=== PATIENT | female | born 1945 | race Caucasian/White ===

== ENCOUNTER 2017-06-19 14:45 | Emergency (ER) | payer OTHER ==
[~2017-06-19] VITALS: Ht 172.7 cm; Wt 82.0 kg
[~2017-06-19 14:45] MED LIST: ALPOPS1 OPB; LISI-461 PO; MAGN400T5 PO; METO25TA56 PO; MULT-506 PO; POTA-327 PO
[2017-06-19 14:47] VITALS: TEMP 37; Ht 172.7 cm; Wt 82.0 kg
[2017-06-19] MEDS ORDERED: SODIUM CHLORIDE 0.9% 250ML 250 ML IV STA (14:53)
--- NOTE | 2017-06-19 15:34 | DIAGNOSTIC IMAGING REPORT ---
CHEST ONE VIEW PORTABLE HISTORY: Cough. tachycardia COMPARISON: Chest 03/14/2011. FINDINGS: The lungs are clear. Cardiac silhouette is normal in size. No pleural effusions. No pneumothorax. IMPRESSION: No acute process. Electronically signed by: Jp Zamora M.D. 06/19/2017 3:32 PM Dictated Date/Time: 06/19/2017 3:32 PM
[2017-06-19 15:36] LABS: ISTAT CREATININE 1.3 mg/dl (0.6-1.3); ISTAT HEMOGLOBIN 7.5 g/dl (12.0-16.0); ISTAT IONIZED CALCIUM 1.2 mmol/l (1.12-1.32)
[2017-06-19 15:59] LABS: ALT/SGPT 30 U/L (12-78); AST/SGOT 21 U/L (15-37); BLOOD UREA NITROGEN 21 mg/dl (7-18); BUN/CREATININE RATIO 15.4 (10-20); CALCIUM 9.5 mg/dl (8.5-10.1); CARBON DIOXIDE 29 mmol/L (21-32); CHLORIDE 95 mmol/L (98-107); CREATININE 1.33 mg/dl (0.60-1.20); GLUCOSE 122 mg/dl (70-99); POTASSIUM 2.9 mmol/L (3.5-5.1); SODIUM 133 mmol/L (136-145)
[2017-06-19] MEDS ORDERED: OPTIRAY 320 IV PRN (16:00)
[2017-06-19 16:02] LABS: PROTHROMBIN TIME (PATIENT) 10.8 SECONDS (9.0-12.0)
[2017-06-19 16:10] LABS: ALKALINE PHOSPHATASE 90 U/L (45-117)
--- NOTE | 2017-06-19 16:36 | DIAGNOSTIC IMAGING REPORT ---
CHEST CTA for AORTIC DISSECTION CT DOSE: 456.09 mGy.cm HISTORY: Upper back pain. Hypotension. TECHNIQUE: Multiaxial CT images of the chest were performed both before and after the intravenous administration of contrast to evaluate the aorta. Maximal intensity projection images were also obtained. A dose lowering technique was utilized adhering to the principles of ALARA. COMPARISON STUDY: Chest 06/19/2017. Chest CT 04/02/2012.. FINDINGS: Noncontrast imaging through the chest shows no evidence for an intramural hematoma within the thoracic aorta. Normal caliber thoracic aorta with no evidence for dissection. The central pulmonary arteries are patent. No mediastinal or hilar lymphadenopathy. The heart is normal in size. The visualized spleen and adrenal glands are unremarkable. Multiple hypodense lesions are again seen throughout the liver. These likely represent cysts. Dominant lesion within the left hepatic lobe measures 3.7 cm. No axillary lymphadenopathy. No acute fractures within the visualized osseous structures. No pneumothorax. Stable 4 mm subpleural nodule along the right minor fissure. Therefore, this is considered to be benign. Otherwise, the lungs are clear. IMPRESSION: No evidence for an aortic dissection. Electronically signed by: Jp Zamora M.D. 06/19/2017 4:34 PM Dictated Date/Time: 06/19/2017 4:27 PM
[2017-06-19 16:46] LABS: HEMATOCRIT 24.4 % (37-47); MEAN CELL VOLUME 96.8 fL (80-100); MEAN CORPUSCULAR HEMOGLOBIN 33.3 pg (25-34); MEAN CORPUSCULAR HGB CONC 34.4 g/dl (32-36); MEAN PLATELET VOLUME 10.4 fL (7.4-10.4); PLATELET COUNT 14 K/uL (130-400); RED BLOOD COUNT 2.52 M/uL (4.2-5.4); WHITE BLOOD COUNT 42.05 K/uL (4.8-10.8)
[2017-06-19] MEDS ORDERED: BRIM0.1S OP (17:19)
[2017-06-19] MEDS ORDERED: POTA20TA16 PO (17:19)
[2017-06-19] MEDS ORDERED: CALC1TAB10 PO (17:19)
[2017-06-19] MEDS ORDERED: HYDR25TA4 PO (17:19)
[2017-06-19] MEDS ORDERED: MELO15TA4 PO (17:19)
[2017-06-19] MEDS ORDERED: ASPI81TA28 PO (17:19)
[2017-06-19] MEDS ORDERED: SODI1SOL OP (17:20)
[2017-06-19 17:27] LABS: URINE APPEARANCE CLEAR (CLEAR); URINE BILIRUBIN NEG (NEG); URINE COLOR YELLOW; URINE EPITHELIAL CELL AUTO >30 /lpf (0-5); URINE NITRITE NEG (NEG); URINE PH 6.5 (4.5-7.5); URINE SPECIFIC GRAVITY 1.039 (1.000-1.030); UROBILINOGEN NEG (NEG); ZZUR CULT IF INDIC CLEAN CATCH NO
[2017-06-19 17:30] LABS: MANUAL MICROSCOPIC REQUIRED? NO; REVIEW REQ? YES
--- NOTE | 2017-06-19 18:01 | EMERGENCY ROOM VISIT NOTE ---
History Report prepared by Torsten: Chris Peña Under the Supervision of: Dr. Kiana Maria M.D. First contact with patient: 14:53 Chief Complaint: SHORTNESS OF BREATH Stated Complaint: SOB, RAPID PULSE, COUGH, History of Present Illness The patient is a 72 year old female who presents to the Emergency Room with complaints of persistent shortness of breath beginning this week. The patient's shortness of breath is worsened with exertion. She also complains of generalized weakness, lightheadedness, headache, heart palpitations, and cough. She was seen at an urgent care center today for her symptoms and was referred to the ED after being found to be very tachycardic. The patient states that her cough has been present for about a month, and recently finished a course of Doxycycline and Prednisone for this. She notes that she fell recently and hit her face. The patient denies abdominal pain, vomiting, chest pain or leg swelling. She notes that she has some pain in her shoulder blades which began around the same time as her cough. She has a history of low grade follicular lymphoma. She follows up for her lymphoma at [facility] and is currently not receiving any treatment. The patient states that she has been bruising very easily recently. Source of History: patient Onset: This week Quality: other (shortness of breath) Timing: other (persistent) Modifying Factors (Worsening): exertion Associated Symptoms: + headache, + cough, + weakness (generalized), No chest pain, No vomiting, No abdominal pain Note: Additional symptoms: shoulder blade pain, lightheadedness, and heart palpitations. She denies leg swelling. Review of Systems See HPI for pertinent positives & negatives. A total of 10 systems reviewed and were otherwise negative. Past Medical & Surgical Medical Problems: (1) Lymphoma, follicular Family History No pertinent family history stated. Social History Alcohol Use: none Marital Status: Occupation Status: retired Current/Historical Medications Scheduled Aspirin (Aspirin Ec), 81 MG PO DAILY Brimonidine Tartrate (Alphagan P Oph), 1 DROPS OP BID Calcium Carbonate-Cholecalcife (Calcium 1000 + D), 2 TAB PO DAILY Hydrochlorothiazide (Hctz), 25 MG PO DAILY Meloxicam (Meloxicam), 15 MG PO DAILY Potassium Ext Rel (Klor-Con), 40 MEQ PO DAILY@1200 Scheduled PRN Sodium Chloride Hypertonic (Sodium Chloride Opthalmic), 2 DROPS OP BID PRN for SWELLING Allergies Coded Allergies: Azithromycin (Unverified Allergy, Unknown, CRASHED TO FLOOR, 06/19/17) Physical Exam Vital Signs Date Time Temp Pulse Resp B/P (MAP) Pulse Ox O2 Delivery O2 Flow Rate FiO2 06/19/17 20:30 102 20 138/77 95 Room Air 06/19/17 18:31 137/74 06/19/17 18:30 100 18 98 06/19/17 18:01 147/78 06/19/17 18:00 109 16 97 06/19/17 17:31 135/97 06/19/17 17:30 115 18 100 06/19/17 17:00 92 18 127/70 97 Room Air 06/19/17 16:17 97 21 143/66 99 Room Air 06/19/17 15:30 101 13 125/66 98 Room Air 06/19/17 15:15 103 20 124/72 97 Room Air 108 119/69 120 106/62 06/19/17 15:12 106 06/19/17 15:03 97 Room Air 06/19/17 14:47 37.0 134 20 93/57 96 Room Air Physical Exam Vital signs reviewed. General: Well-appearing female, in no significant distress. HEENT: No scleral icterus, PERRLA, neck supple. Atraumatic. Cardiovascular: Rapid rate, regular rhythm. Pulmonary: Clear to auscultation bilaterally, normal work of breathing. Abdomen: Soft, nontender, nondistended, positive bowel sounds. Musculoskeletal: Atraumatic, no peripheral edema. Neurologic: Patient awake alert and oriented x 3 Skin: Warm, dry, no rash. Healing ecchymosis to the bilateral facial cheeks. Left knee ecchymosis. Medical Decision & Procedures ER Provider Diagnostic Interpretation: Radiology results as stated below per my review and radiologist interpretation: CHEST ONE VIEW PORTABLE FINDINGS: The lungs are clear. Cardiac silhouette is normal in size. No pleural effusions. No pneumothorax. IMPRESSION: No acute process. Electronically signed by: Jp Zamora M.D. 06/19/2017 3:32 PM CHEST CTA for AORTIC DISSECTION FINDINGS: Noncontrast imaging through the chest shows no evidence for an intramural hematoma within the thoracic aorta. Normal caliber thoracic aorta with no evidence for dissection. The central pulmonary arteries are patent. No mediastinal or hilar lymphadenopathy. The heart is normal in size. The visualized spleen and adrenal glands are unremarkable. Multiple hypodense lesions are again seen throughout the liver. These likely represent cysts. Dominant lesion within the left hepatic lobe measures 3.7 cm. No axillary lymphadenopathy. No acute fractures within the visualized osseous structures. No pneumothorax. Stable 4 mm subpleural nodule along the right minor fissure. Therefore, this is considered to be benign. Otherwise, the lungs are clear. IMPRESSION: No evidence for an aortic dissection. Electronically signed by: Jp Zamora M.D. 06/19/2017 4:34 PM Laboratory Results 06/19/17 15:10 Red Blood Count 2.52, Mean Corpuscular Volume 96.8, Mean Corpuscular Hemoglobin 33.3, Mean Corpuscular Hemoglobin Concent 34.4, Mean Platelet Volume 10.4 06/19/17 15:10 Test 06/19/17 15:10 06/19/17 15:20 06/19/17 15:23 06/19/17 17:15 White Blood Count 42.05 K/uL (4.8-10.8) Red Blood Count 2.52 M/uL (4.2-5.4) Hemoglobin 8.4 g/dL (12.0-16.0) Hematocrit 24.4 % (37-47) Mean Corpuscular Volume 96.8 fL (80-100) Mean Corpuscular Hemoglobin 33.3 pg (25-34) Mean Corpuscular Hemoglobin Concent 34.4 g/dl (32-36) Platelet Count 14 K/uL (130-400) Mean Platelet Volume 10.4 fL (7.4-10.4) RDW Standard Deviation 56.5 fL (36.4-46.3) RDW Coefficient of Variation 16.4 % (11.5-14.5) Neutrophils % (Manual) 4.2 % Lymphocytes % (Manual) 4.2 % Monocytes % (Manual) 4.2 % Blast Cells % 87.4 % Neutrophils # (Manual) 1.77 K/uL (1.4-6.5) Total Absolute Neutrophils 1.77 K/uL (1.4-6.5) Lymphocytes # (Manual) 1.77 K/uL (1.2-3.4) Total Absolute Lymphocytes 1.77 K/uL (1.2-3.4) Monocytes # (Manual) 1.77 K/uL (0.11-0.59) Blast Cells # 36.75 K/uL (0-0) Blood Smear Review Tereso Rods PRESENT Platelet Estimate SIGNIFIC DECREASED Red Blood Cell Morphology Unremarkable Prothrombin Time 10.8 SECONDS (9.0-12.0) Prothromb Time International Ratio 1.0 (0.9-1.1) Activated Partial Thromboplast Time 27.1 SECONDS (21.0-31.0) Partial Thromboplastin Ratio 1.0 Est Creatinine Clear Calc Drug Dose 43.6 ml/min Estimated GFR () 46.5 Estimated GFR (Non- 40.1 BUN/Creatinine Ratio 15.4 (10-20) Calcium Level 9.5 mg/dl (8.5-10.1) Magnesium Level 2.0 mg/dl (1.8-2.4) Total Bilirubin 0.7 mg/dl (0.2-1) Direct Bilirubin 0.2 mg/dl (0-0.2) Aspartate Amino Transf (AST/SGOT) 21 U/L (15-37) Alanine Aminotransferase (ALT/SGPT) 30 U/L (12-78) Alkaline Phosphatase 90 U/L (45-117) Total Creatine Kinase 118 U/L (26-192) Creatine Kinase MB < 0.5 ng/ml (0.5-3.6) Creatine Kinase MB Ratio (0-3.0) Total Protein 8.5 gm/dl (6.4-8.2) Albumin 3.7 gm/dl (3.4-5.0) Thyroid Stimulating Hormone (TSH) 1.600 uIu/ml (0.300-4.500) Bedside Troponin I < 0.030 ng/ml (0-0.045) Bedside Hemoglobin 7.5 g/dl (12.0-16.0) Bedside Hematocrit 22 % (37-47) Bedside Sodium 136 mEq/L (135-144) Bedside Potassium 3.2 mEq/L (3.3-5.0) Bedside Chloride 93 mEq/L (101-112) Bedside Total CO2 29 mEq/l (24-31) Anion Gap 18.0 mmol/L (16-25) Bedside Blood Urea Nitrogen 19 mg/dl (7-18) Bedside Creatinine 1.3 mg/dl (0.6-1.3) Bedside Glucose (other) 127 mg/dl (70-99) Bedside Ionized Calcium (Nabil) 1.20 mmol/l (1.12-1.32) Urine Color YELLOW Urine Appearance CLEAR (CLEAR) Urine pH 6.5 (4.5-7.5) Urine Specific [place] 1.039 (1.000-1.030) Urine Protein NEG (NEG) Urine Glucose (UA) NEG (NEG) Urine Ketones NEG (NEG) Urine Occult Blood 1+ (NEG) Urine Nitrite NEG (NEG) Urine Bilirubin NEG (NEG) Urine Urobilinogen NEG (NEG) Urine Leukocyte Esterase MODERATE (NEG) Urine WBC (Auto) 5-10 /hpf (0-5) Urine RBC (Auto) 5-10 /hpf (0-4) Urine Hyaline Casts (Auto) 1-5 /lpf (0-5) Urine Epithelial Cells (Auto) >30 /lpf (0-5) Urine Bacteria (Auto) NEG (NEG) Urine Renal Epithelial Cells 0-5 /lpf (0-5) Test 06/19/17 17:52 Uric Acid 4.0 mg/dl (2.6-7.2) Lactate Dehydrogenase 728 U/L (84-246) Laboratory results per my review. Medications Administered Medications (Trade) Dose Ordered Sig/Gemini Route Start Time Stop Time Status Last Admin Dose Admin Sodium Chloride 250 ml @ 999 mls/hr Q16M STAT IV 06/19/17 14:53 06/19/17 15:08 DC 06/19/17 15:41 999 MLS/HR ECG Indication: SOB/dyspnea Rate (beats per minute): 106 Rhythm: sinus tachycardia Findings: no acute ischemic change, no ectopy ED Course 1455: Past medical records reviewed. The patient was evaluated in room B11A. A complete history and physical examination was performed. 1453: Ordered Sodium Chloride 250 ml @ 999 mls/hr IV. 1742: Upon reevaluation, the patient is resting comfortably. I discussed laboratory and radiographic results with her. She verbalized agreement of the treatment plan. The patient will be transferred to [facility]. Medical Decision Differential diagnosis: Etiologies such as infections, reactive airway disease, pneumonia, pneumothorax , COPD, CHF, cardiac ischemia, pulmonary embolism, musculoskeletal, gastrointestinal, as well as others were entertained. This patient was evaluated and appeared to be in no significant distress. IV access was obtained and laboratory work was drawn. The patient is found to be tachycardic and mildly hypotensive. She was hydrated with normal saline solution. EKG reveals a sinus tachycardia. EKG reveals no evidence of acute ischemic change. CT scan of the chest was performed and is negative for dissection and PE, other findings are as above. The patient's laboratory work reveals a markedly elevated white blood cell count of 42,000, the pathologist read a smear and is concerned for greater than 90% bands. 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 I did run the case by the hospitalist service, they've recommended transfer to a tertiary center. I did speak with Dr. Alves at [facility] of hematology/ oncology. He has accepted the patient in transfer. A uric acid is normal and an LDH is elevated. The patient has been informed of the findings. IV fluids have been continued and ALS transportation arrangements are underway. There is a slight delay in transfer secondary to available beds at [facility]. Patient is aware. Patient remained stable awaiting transport. Medication Reconcilliation Current Medication List: was personally reviewed by me Blood Pressure Screening Patient's blood pressure: Normal blood pressure Blood pressure disposition: Did not require urgent referral Consults Time Called: 1655 Consulting Physician: Magnolia SORIA - [facility] Returned Call: 1700 I reviewed the patient's case with Magnolia SORIA. She recommends transfer to a tertiary care facility. Additional Consults: Time Called: 1655 Consulted Physician: Dr. Johnson -Pathology Returned Call: 1701 Additional Comments: I reviewed the patient's case with Dr. Johnson of Pathology. He recommends transfer for further evaluation. Time Called: 1735 Consulted Physician[facility] Returned Call: 1735 Additional Comments: I reviewed the patient's case with Dr. Alves. The patient will be transferred to [facility]. Impression Primary Impression: Acute leukemia Scribe Attestation The scribe's documentation has been prepared under my direction and personally reviewed by me in its entirety. I confirm that the note above accurately reflects all work, treatment, procedures, and medical decision making performed by me. Departure Information Dispostion Transfer Acute Care Facility ([facility]) Referrals No Doctor, Assigned (PCP) Patient Instructions My [facility]
[2017-06-19 18:08] LABS: LYMPH ABS # 1.77 K/uL (1.2-3.4); LYMPHOCYTE % 4.2 %; NEUTROPHILS % 4.2 %; PLT ESTIMATE SIGNIFIC DECREASED
[2017-06-19 22:30] VITALS: BP 131/74; PULSE 100; O2SAT 98
[2017-06-23 15:29] LABS: NEO FLOW LYMPH/LEUK STND SEE NEO MISC
== END 2017-06-19 22:39 | disposition short-term general hospital (02) ==
LOC: C.EDB 14:47
DX: C92.40 Acute promyelocytic leukemia, not having achieved remission (principal); R00.0 Tachycardia, unspecified; Z79.82 Long term (current) use of aspirin; Z79.899 Other long term (current) drug therapy; Z88.1 Allergy status to other antibiotic agents

== ENCOUNTER 2018-10-22 14:52 | Inpatient (IN) ==
[2018-10-22] MEDS ORDERED: SODIUM CHLORIDE 0.9% 500 ML IV SCH (16:15)
[2018-10-22 16:21] LABS: INR 1.1 (0.9-1.1); Prothrombin Time 10.9 Seconds (9.0-12.0)
[2018-10-22 16:31] LABS: Albumin Level 2.9 gm/dl (3.4-5.0); Calcium 8.9 mg/dl (8.5-10.1); Creatinine Clr Calc Pharmacy 53.5 ml/min; Platelet Count 29 K/uL (130-400); Potassium 4.5 mmol/L (3.5-5.1)
[2018-10-22 16:32] LABS: Hematocrit (blood only) 29.8 % (37-47); Hemoglobin 10.1 g/dL (12.0-16.0); Mean Corpuscular Hgb Conc 33.9 g/dL (32-36); Mean Corpuscular Volume 85.6 fL (80-100); Mean Platelet Volume 9.4 fL (7.4-10.4); RDW Coefficient of Variation 14.6 % (11.5-14.5); RDW Standard Deviation 45.5 fL (36.4-46.3); Red Blood Count 3.48 M/uL (4.2-5.4)
[2018-10-22 16:36] LABS: Albumin Globulin Ratio 0.8 (0.9-2); Bilirubin,Total 0.3 mg/dl (0.2-1); Globulin 3.8 gm/dl (2.5-4.0); Total Protein 6.7 gm/dl (6.4-8.2); Troponin I 0.036 ng/ml (0-0.045)
--- NOTE | 2018-10-22 16:47 | XRay Report ---
SINGLE VIEW CHEST CLINICAL HISTORY: Fall. Dyspnea. FINDINGS: An AP, portable, upright chest radiograph is compared to study dated 06/09/2018 and correla alison with chest CT dated 06/19/2017. The examination is degraded by portable technique and patient rot ation. A right subclavian central venous infusion port is unchanged in position. The cardiomediastin al silhouette is unremarkable. The lungs and pleural spaces are clear. No pneumothorax is seen. The s keletal structures are osteopenic. The bony thorax is grossly intact. IMPRESSION: No acute cardiopulmonary abnormality. Electronically signed by: Jose Johnson M.D. 10/22/2018 4:46 PM
[2018-10-22] MEDS ORDERED: IOVERSOL 100ml IV PRN (16:53)
[2018-10-22 17:05] LABS: RBC Morphology Unremarkable
--- NOTE | 2018-10-22 17:05 | CT Scan Report ---
CT SCAN OF THE BRAIN WITHOUT IV CONTRAST CLINICAL HISTORY: Fall. Headache. COMPARISON STUDY: No priors. TECHNIQUE: Unenhanced axial CT scan of the brain is performed from the vertex to the skull base. A do se lowering technique was utilized adhering to the principles of ALARA. The skull base was scanned tw ice due to motion artifact. CT DOSE: 972.29 mGy.cm FINDINGS: Brain parenchyma: There are age-related involutional changes noting mild subcortical and periventric ular microangiopathic change. There is no hemorrhage, mass effect, or evidence of acute territorial i schemia by CT criteria. Bartlett-white matter differentiation is preserved. No extra-axial fluid collecti on is seen. Ventricles, sulci, cisterns: Prominent secondary to involutional change. Intracranial vasculature: There is atherosclerotic calcification of the cavernous carotid and vertebr al arteries. Calvarium: The skeletal structures are osteopenic. No depressed calvarial fracture is seen. Soft tissues: There is minimal frontal scalp contusion. Sinuses and mastoids: The visualized paranasal sinuses are clear. The mastoid air cells are well pneu matized. Orbits: The bony orbits are grossly intact. There is evidence of bilateral ocular lens surgery. IMPRESSION: There is no hemorrhage, mass effect, or evidence of acute territorial ischemia by CT mere boateng. Electronically signed by: Jose Johnson M.D. 10/22/2018 5:04 PM
[2018-10-22 17:07] LABS: ALC (manual) 1.05 K/uL (1.2-3.4); Blast # (manual) 0.89 K/uL (0-0); Blast Cells % (manual) 35.7 %; Lymphocytes # (manual) 1.05 K/uL (1.2-3.4); Lymphocytes % (manual) 41.9 %; Metamyelocytes # (manual) 0.02 K/uL (0-0); Metamyelocytes % (manual) 0.9 %; Monocytes # (manual) 0.14 K/uL (0.11-0.59); Monocytes % (manual) 5.4 %; Myelocytes # (manual) 0.29 K/uL (0-0); Myelocytes % (manual) 11.6 %; Neutrophils % (manual) 4.5 %
--- NOTE | 2018-10-22 17:14 | CT Scan Report ---
CT OF THE ABDOMEN AND PELVIS WITH CONTRAST CLINICAL HISTORY: fall, L flank bruising pain COMPARISON STUDY: CT of the abdomen and pelvis July 02, 2012. TECHNIQUE: Following IV administration of 94 mL of Optiray-320, axial images of the abdomen and pelvi s were obtained from the lung bases to the proximal femurs. Images were reviewed in the axial, sagitt al, and coronal planes. IV contrast was administered without complication. Automated exposure contro l was utilized for the study. A dose lowering technique was utilized adhering to the principles of A TAMI. FINDINGS: Multiple hepatic cysts are noted. There is no biliary or pancreatic ductal dilatation. Ther e is no evidence for traumatic injury to the liver, spleen, adrenal glands, kidneys or pancreas. Ther e is no hydronephrosis. There is mild asymmetric enlargement of the left paraspinal musculature of th e lumbar spine. There is adjacent infiltration. A few suspected small left flank subcutaneous contusi ons are noted. There is no evidence for a bowel obstruction. A 1.1 cm partially calcified central mes enteric lymph node on image 190 of 461 has decreased in size since CT of April 02, 2012. There is moderate wall thickening and adjacent inflammation of the sigmoid colon with diverticulosis. There i s an associated 1.4 cm rim-enhancing fluid collection within the wall of the sigmoid colon. This sugg ests an intramural abscess. There is no drainable fluid collection. No acute lumbar spine or pelvic f racture is identified. No fractures are identified within visualized portions of the lower ribs. Mese nteric infiltration is unchanged. Note is made of severe stenosis of the origin of the superior mesen teric artery. Celiac axis and inferior mesenteric artery are patent. IMPRESSION: 1. Moderate sigmoid colon wall thickening with adjacent infiltration consistent with acute sigmoid di verticulitis. Small associated 1.4 cm intramural abscess. No drainable fluid collection. A follow-up nonemergent colonoscopy once symptoms resolve is recommended to exclude the less likely possibility o f a neoplasm. 2. Asymmetric enlargement of the left paraspinal musculature of the mid to upper lumbar spine suggest una of a small amount of intramuscular hemorrhage. No active extravasation. Adjacent subcutaneous con tusion. 3. Interval decrease in size of a central mesenteric lymph node which may reflect treated lymphoma. 4. 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 Electronically signed by: Raul Starks M.D. 10/22/2018 5:13 PM
[2018-10-22] MEDS ORDERED: ERTAPENEM SODIUM 1,000 MG in SODIUM CHLORIDE 0.9% 50 ML IV SCH (17:43)
[2018-10-22] MEDS ORDERED: ERTAPENEM SODIUM 1,000 MG in SYRINGE 0 ML IV STA (17:43)
[2018-10-22 18:20] LABS: Appearance Urine Clear (Clear); Bilirubin Urine Negative (Negative); Blood Urine Negative (Negative); Color Urine Yellow; Glucose Urine UA Negative (Negative); Ketones Urine Negative (Negative); Leukocyte Esterase Urine Negative (Negative); Nitrite Urine Negative (Negative); Protein Urine Negative (Negative); Specific Gravity Urine 1.045 (1.000-1.030); Urobilinogen Urine Negative (Negative)
[2018-10-22] MEDS: ACETAMINOPHEN 325 MG TAB PO PRN ×2 (18:47→22:28)
--- NOTE | 2018-10-22 19:17 | History & Physical Report ---
Date of Service October 22, 2018 Assessment & Plan (1) Diverticulitis of large intestine with abscess: Pt presented to ER for fall and had CT abd/pelvis secondary to flank ecchymosis. Reported diarrhea x 1 episode 6 days ago and took 2 imodium. No BM until yesterday after taking senakot and stool softner. Denies abdominal pain, N/V, melena, hematochezia In ER pt afebrile, P: 88, R: 18, BP: 106/69, 131/64, 99% on RA. WBC: 2.5 (baseline in 1's). CT ABD/PELVIS: Moderate sigmoid colon wall thickening with adjacent infiltration consistent with acute sigmoid diverticulitis. Small associated 1.4 cm intramural abscess. No drainable fluid collection. A follow-up nonemergent colonoscopy once symptoms resolve is recommended to exclude the less likely possibility of a neoplasm. -In ER given ertapenem, NSS 500ml -Soft diet -Ertapenem for now -ID consult, appreciate further antibiotic recommendations -General surgery consult - ER contacted satellite communications engineer, not recommend surgery currently -GI consult (2) Fall: (3) Multiple contusions: Pt with hx fall yesterday and reported 3 falls in past month. Prior to falls reports dizziness. CT HEAD:no acute abnormality CT ABD/PELVIS: Asymmetric enlargement of the left paraspinal musculature of the mid to upper lumbar spine suggestive of a small amount of intramuscular hemorrhage. No active extravasation. Adjacent subcutaneous contusion. -Contusion left back, left shoulder, upper and lower extremities -tele to monitor for arrhythmias. possible symptomatic anemia, orthostatic hypotension -pending orthostatic vital signs -PT/OT eval (4) Pancytopenia: (5) AML (acute myeloblastic leukemia): Pt follows with Dr Horvath oncology at [facility] [place] Last chemo 08/2018. [facility] MWF and has PRBC transfusion if Hgb<10. Platelet transfusion if Plt<10 on mondays and if Plt<20 on wednesdays and fridays. Receives premedication of Tylenol 650 mg p.o. and Benadryl 50 mg p.o. prior to platelet transfusion and PRBC transfusion 10/22/18 had 1 unit PRBC and platelet transfusion In ER afebrile. WBC: 2.5 (baseline in 1's), Hgb: 10.1 (was 9.8 this morning), Plt: 29 (was 6 this morning) -Monitor CBC -Continue acyclovir, Levaquin, isavuconazonium -Continue radiated PRBCs and platelet transfusion per heme/oncology guidelines (6) Non-ischemic cardiomyopathy: (7) Sinus tachycardia: No CP. Current sinus rhythm rate in 80's Hx echo 02/2018: EF 40%, mild diffuse LV hypokinesis -Continue digoxin, metoprolol (8) CKD (chronic kidney disease), stage III: Cr:0.7. Stable -Monitor renal functions, avoid nephrotoxic agents when possible (9) HTN (hypertension): Stable -Continue metoprolol DVT Prophylaxis -SCDs DNR/DNI as per discussion with pt Follows with Dr Pineda for routine care Pt was seen with Dr Goyal. See addendum History of Present Illness Chief Complaint: L flank pain after fall Primary Care Provider: Marco Pineda Pt is 73 y/o F with PMH AML, pancytopenia, and platelet transfusion dependent, biventricular heart failure, follicular lymphoma in 2010 followed at [facility], HTN, dyslipidemia, glaucoma, CKD III,h/o PE in 08/2017 initially treated with Lovenox presented to ER from [facility] with complaint of left back pain and bruising after fall yesterday. Patient reports has had 3 falls in the past. States that she gets "woozy" and dizzy prior to fall. Yesterday was out lauren pping and felt fine and came home and later in the evening walking in her house and fell onto her left side. Patient complains of left shoulder ecchymosis & left back ecchymosis since fall. Patient states she uses a cane walker when she is outside. She states focal last week and had had and had outpatient CT head which was negative for bleed or fracture. Patient states since has been having headaches mostly relieved with Tylenol. Patient states 6 days ago had one episode of diarrhea and she took 2 Imodium. She did not have a BM until yesterday after taking Senokot and stools and reports BM was formed. Patient denies any abdominal pain. Denies nausea, vomiting. Denies any known fever, reports past couple days has been having hot flashes. Today patient had 1 unit PRBC and 1 unit platelets. Reports last chemo was in August 2018. Pt states is trying to get in to [facility] as she is concerned about her recurrent falls and states that she is currently on a waiting list. Hx colonoscopy in 2012 showed diverticuli. Pt denies hx diverticulitis. Denies diaphoresis, LOC, vision changes, neck pain, CP, SOB, orthopnea, palpitations, cough, sore throat, choking, otalgia, rhinorrhea, melena, hematochezia, paresthesias, extremity edema, loss ROM of extremities, rashes, urinary symptoms. Allergies Allergy/AdvReac Type Severity Reaction Status Date / Time cefepime Allergy Intermediate RASH Verified 10/23/18 10:07 azithromycin AdvReac Intermediate Hypotension Verified 10/22/18 10:18 mivacurium AdvReac Intermediate CRASHED TO Verified 10/22/18 10:18 FLOOR Home Medications Home Medications Medication Instructions Recorded Confirmed Type Alphagan P 1 drp OPB BID 03/26/18 10/22/18 History Cresemba 372 mg PO DAILY 03/26/18 10/22/18 History acetaminophen [Tylenol] 650 mg PO Q6 PRN 03/26/18 10/22/18 History acyclovir [Zovirax] 400 mg PO BID 03/26/18 10/22/18 History allopurinol 300 mg PO DAILY 03/26/18 10/22/18 History digoxin 125 mcg PO DAILY 03/26/18 10/22/18 History levofloxacin [Levaquin] 500 mg PO DAILY 03/26/18 10/22/18 History potassium chloride [Klor-Con M20] 20 meq PO BID 03/26/18 10/22/18 History sennosides [Senokot] 8.6 mg PO DAILY PRN 03/26/18 10/22/18 History megestrol 40 mg PO QID 07/09/18 10/22/18 History metoprolol succinate 25 mg PO BID #60 tab 07/11/18 10/22/18 Rx omeprazole 40 mg PO DAILY 10/22/18 10/22/18 History Past Med/Surg History Medical History Biventricular heart failure (Chronic) Neutropenia (Chronic) Anemia (Chronic) Exertional shortness of breath (Chronic) CKD (chronic kidney disease), stage III (Chronic) Dyslipidemia (Chronic) HTN (hypertension) (Chronic) History of hysterectomy (Resolved) AML (acute myeloblastic leukemia) (Chronic) Thrombocytopenia (Chronic) Lymphoma, follicular (Chronic) - s/p chemo, radiation. followed with [facility] Bloody stool (Acute) Surgical History History of removal of cyst (Resolved) removed in mouth Family History Other COPD (chronic obstructive pulmonary disease) Lymphoma Social History Communication Ability: Effective Beliefs That Will Affect Care: None Current Living Situation: Alone Current Living Situation Comment: home Other Information That Helps Us Care for You: No Feels Safe at Home: Yes Safety Concerns: Feels Safe At This Time Smoking Status: Never smoker Hx Alcohol Use: No Hx Substance Use: No Review of Systems All systems reviewed & are unremarkable except as noted in HPI & below Physical Exam Vital Signs (Past 24 Hours): Last Vital Signs Temp 36.8 C 10/22/18 14:58 Pulse 75 10/22/18 19:09 Resp 18 10/22/18 19:09 BP 132/65 10/22/18 19:09 Pulse Ox 100 10/22/18 19:09 Physical Exam: General: no acute distress, thin, chronic ill appearing, non- toxic appearing Head: normocephalic, +green/yellow ecchymosis L forehead. Eyes: PERRL, EOM's intact, conjunctiva non-injected, anicteric. Left upper eyelid with ecchymosis. No orbital tenderness to palpation ENT: normal inspection external ears, nose, mucous membranes moist Neck: supple, trachea midline, non-tender, ROM intact Lungs: clear, no respiratory distress, no wheezing/rhonchi/rales CV: RRR, no pretibial edema Abd: normal BS, soft, non-tender Back: no spinous process tenderness to palpation, Left lower back with ecchymosis and tenderness to palpation Ext: no cyanosis, no calf tenderness, Left shoulder with ecchymosis, active ROM shoulder intact. +multiple ecchymosis to bilateral arms and hands, +ecchymosis to bilateral knees, +ecchymosis to bilateral legs, ROM extremities intact, distal pulses intact Neuro: A&O x 3, no focal deficits noted, normal affect Skin: warm, dry, +ecchymosis as above Results & Data Laboratory Results Short CBC 10/22/18 Range/Units 15:34 WBC 2.50 L (4.8-10.8) K/uL Hgb 10.1 L (12.0-16.0) g/dL Hct 29.8 L (37-47) % Plt Count 29 L* D (130-400) K/uL BMP 10/22/18 15:34 Sodium 138 Potassium 4.5 Chloride 108 H Carbon Dioxide 26 BUN 28 H Creatinine 0.78 Glucose 91 Calcium 8.9 Cardiac Enzymes 10/22/18 Range/Units 15:34 Troponin I 0.036 (0-0.045) ng/ml Liver Function 10/22/18 Range/Units 15:34 Total Bilirubin 0.3 (0.2-1) mg/dl AST 11 L (15-37) U/L ALT 14 (12-78) U/L Alkaline Phosphatase 144 H (45-117) U/L Albumin 2.9 L (3.4-5.0) gm/dl Urine 10/22/18 Range/Units 18:10 Urine Color Yellow Urine Appearance Clear (Clear) Urine pH 6.0 (4.5-7.5) Ur Specific [place] 1.045 H (1.000-1.030) Urine Protein Negative (Negative) Urine Glucose (UA) Negative (Negative) Diagnostic Findings CT HEAD: IMPRESSION: There is no hemorrhage, mass effect, or evidence of acute territorial ischemia by CT criteria. CXR: IMPRESSION: No acute cardiopulmonary abnormality. CT ABD/PELVIS: IMPRESSION: 1. Moderate sigmoid colon wall thickening with adjacent infiltration consistent with acute sigmoid diverticulitis. Small associated 1.4 cm intramural abscess. No drainable fluid collection. A follow-up nonemergent colonoscopy once symptoms resolve is recommended to exclude the less likely possibility of a neoplasm. 2. Asymmetric enlargement of the left paraspinal musculature of the mid to upper lumbar spine suggestive of a small amount of intramuscular hemorrhage. No active extravasation. Adjacent subcutaneous contusion. 3. Interval decrease in size of a central mesenteric lymph node which may reflect treated lymphoma. 4. 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 ECG Rate (beats per minute): 80 Rhythm: normal sinus Additional Comments: Read by cardiology: Normal sinus rhythm Possible Left atrial enlargement Left axis deviation Abnormal ECG When compared with ECG of 11-JUL-2018 06:22, No significant change was found Confirmed by JIA CA ([id number]) on 10/22/2018 4:46:45 PM Supervising Physician Co-Signing Physician Notes Attending Addendum: delayed entry date of service as noted above care coordinated with GUERA Jeff please refer to her notes for full details, I agree with her notes patient seen and examined, records reviewed by myself as well on exam, patient seen resting in bed not in distress denies abdominal pain, hematochezia mild back pain no other symptoms VS noted and reviewed oriented x3, not in distress, speaks in sentences with no effort nor accessory muscle use normal rate, regular rhythm, no murmurs clear breath sounds bilaterally non distended, soft, nontender no bipedal edema, erythema, warmth no neuro deficits (+) hematoma areas on the left flank, back, uper ext Hg [address]: (+) diverticular abscess ASSESSMENT AND PLAN DIVERTICULAR ABSCESS, IMMUNOCOMPROMISED STATE Gen Surg, GI, ID consulted received IV Ertapenem defer Abx management to ID in light of patient's allergy profile PANCYTOPENIA will monitor and tranfuse PRN other diagnoses and plan of care as per GUERA Jeff notes Augustus Goyal MD (1) AML (acute myeloblastic leukemia) Leukemia Active/Remission status: without remission Qualified Code(s): C92.00 - Acute myeloblastic leukemia, not having achieved remission
[2018-10-22] MEDS ORDERED: SODIUM CHLORIDE 0.9% 250 ML IV PRN (20:07)
--- NOTE | 2018-10-22 20:24 | Emergency Department Note ---
Entered by Edu Richards acting as a scribe for Michele Charles M.D. History of Present Illness General Chief complaint: Fall Stated complaint: FALL, BACK SORE & HAS HEADACHE Source: patient and family History of Present Illness Onset (ago): week(s) 3 Location: head, back, lower extremity and left (shoulder) Pain Consistency: + intermittent Quality: + other (dizziness and falls) Exacerbated By: + other (back pain worsened by movement) Associated symptoms: + headaches and + loss of appetite; no chest pain and no syncope The patient is a 73 year old female who presents to the Emergency Room with complaints of intermittent dizziness and falls over the past few weeks. The patient reports that she has fallen three times in the past three weeks. Prior to her first fall she lost her balance when taking out the garbage, and then two weeks ago she fell again while sitting on the toilet with head trauma after feeling that the room was spinning. She states that last night she felt like the room was spinning, and she again fell and struck her head. The patient reports persistent back soreness exacerbated with movement, worsening after her fall night. She also notes soreness of the left shoulder, leg pain, and states that she has had intermittent headaches since her fall two weeks ago. She reports intermittent hot flashes and loss of appetite, although she has been able to drink BOOST meal replacements. She notes that she had a CT of the head four days ago that was unremarkable. She also reports that she was in [place] last week and received a bone marrow biopsy. The patient denies palpitations, chest pain, nausea or loss of consciousness. She states that she was doing well at home prior to the past three weeks. The patient was initially seen today for platelets and blood. After receiving these, she was sent to the ER with concerns for her falls. She received her most recent chemotherapy in August, and she is currently awaiting a transition to another form of chemotherapy. She reports chronic shortness of breath with exe rtion. Her oncologist is Dr. Bartlett. Home Medications Home Medications Medication Instructions Recorded Confirmed Type Alphagan P 1 drp OPB BID 03/26/18 10/22/18 History Cresemba 372 mg PO DAILY 03/26/18 10/22/18 History acetaminophen [Tylenol] 650 mg PO Q6 PRN 03/26/18 10/22/18 History acyclovir [Zovirax] 400 mg PO BID 03/26/18 10/22/18 History allopurinol 300 mg PO DAILY 03/26/18 10/22/18 History digoxin 125 mcg PO DAILY 03/26/18 10/22/18 History levofloxacin [Levaquin] 500 mg PO DAILY 03/26/18 10/22/18 History potassium chloride [Klor-Con M20] 20 meq PO BID 03/26/18 10/22/18 History sennosides [Senokot] 8.6 mg PO DAILY PRN 03/26/18 10/22/18 History megestrol 40 mg PO QID 07/09/18 10/22/18 History metoprolol succinate 25 mg PO BID #60 tab 07/11/18 10/22/18 Rx omeprazole 40 mg PO DAILY 10/22/18 10/22/18 History Allergies Allergy/AdvReac Type Severity Reaction Status Date / Time cefepime Allergy Intermediate RASH Verified 10/22/18 10:18 azithromycin AdvReac Intermediate Hypotension Verified 10/22/18 10:18 mivacurium AdvReac Intermediate CRASHED TO Verified 10/22/18 10:18 FLOOR Past Med/Surg History Medical History Biventricular heart failure (Chronic) Neutropenia (Chronic) Anemia (Chronic) Exertional shortness of breath (Chronic) CKD (chronic kidney disease), stage III (Chronic) Dyslipidemia (Chronic) HTN (hypertension) (Chronic) History of hysterectomy (Resolved) AML (acute myeloblastic leukemia) (Chronic) Thrombocytopenia (Chronic) Lymphoma, follicular (Chronic) - s/p chemo, radiation. followed with [facility] Bloody stool (Acute) Surgical History History of removal of cyst (Resolved) removed in mouth Family History Other COPD (chronic obstructive pulmonary disease) Lymphoma Social History Communication Ability: Effective Hide And Skin Classer Required: No Beliefs That Will Affect Care: None Current Living Situation: Alone Current Living Situation Comment: home Other Information That Helps Us Care for You: No Feels Safe at Home: Yes Safety Concerns: Feels Safe At This Time Smoking Status: Never smoker Hx Alcohol Use: No Hx Substance Use: No Review of Systems See HPI for pertinent positives & negatives. and A total of 10 systems reviewed and were otherwise negative Physical Exam Vital Signs Vital Signs - 24 hr 10/22/18 14:58 10/22/18 17:00 10/22/18 19:09 Temperature 36.8 C Temperature Source Oral Sepsis Recent Fever Within 48 Hours No Sepsis New/Unexplained Change in Mental Status No Sepsis Action Taken by Nursing No Action Required Pulse Rate - Lying Pulse Rate - Sitting Pulse Rate - Standing Pulse Rate 88 75 Pulse Rate [Apical] Pulse Rate [Right Finger] 78 Pulse Rhythm Regular Pulse Strength Normal Respiratory Rate 18 18 18 Respiratory Effort / Characteristics Non-Labored Spontaneous Respiratory Depth Normal Respiratory Pattern Regular Blood Pressure - Lying Blood Pressure - Sitting Blood Pressure- Standing Blood Pressure 106/69 132/65 Blood Pressure [Left Arm] Blood Pressure [Right Arm] 131/64 Blood Pressure Mean 81 Blood Pressure Mean [Left Arm] Blood Pressure Mean [Right Arm] 86 Blood Pressure Position Sitting Blood Pressure Position [Left Arm] Pulse Oximetry 99 100 100 Oxygen Delivery Method Room Air Room Air Room Air 10/22/18 20:00 10/22/18 20:07 10/22/18 20:32 Temperature 36.6 C Temperature Source Oral Sepsis Recent Fever Within 48 Hours Sepsis New/Unexplained Change in Mental Status Sepsis Action Taken by Nursing Pulse Rate - Lying 84 Pulse Rate - Sitting 94 H Pulse Rate - Standing 92 H Pulse Rate 81 Pulse Rate [Apical] 86 Pulse Rate [Right Finger] Pulse Rhythm Pulse Strength Respiratory Rate 18 Respiratory Effort / Characteristics Non-Labored Respiratory Depth Normal Respiratory Pattern Blood Pressure - Lying 146/73 H Blood Pressure - Sitting 138/78 Blood Pressure- Standing 111/73 Blood Pressure Blood Pressure [Left Arm] 138/78 Blood Pressure [Right Arm] Blood Pressure Mean Blood Pressure Mean [Left Arm] 98 Blood Pressure Mean [Right Arm] Blood Pressure Position Blood Pressure Position [Left Arm] Sitting Pulse Oximetry 100 Oxygen Delivery Method Room Air 10/22/18 21:15 Temperature Temperature Source Sepsis Recent Fever Within 48 Hours Sepsis New/Unexplained Change in Mental Status Sepsis Action Taken by Nursing Pulse Rate - Lying Pulse Rate - Sitting Pulse Rate - Standing Pulse Rate 84 Pulse Rate [Apical] Pulse Rate [Right Finger] Pulse Rhythm Pulse Strength Respiratory Rate Respiratory Effort / Characteristics Respiratory Depth Respiratory Pattern Blood Pressure - Lying Blood Pressure - Sitting Blood Pressure- Standing Blood Pressure Blood Pressure [Left Arm] Blood Pressure [Right Arm] Blood Pressure Mean Blood Pressure Mean [Left Arm] Blood Pressure Mean [Right Arm] Blood Pressure Position Blood Pressure Position [Left Arm] Pulse Oximetry Oxygen Delivery Method GENERAL: Awake, alert, well-appearing, in no distress HENT: Healing contusion of the left forehead, newer contusion of the left eye. EYES: Normal conjunctiva. Sclera non-icteric. PERRL. EOMI. NECK: Supple. No nuchal rigidity. No cervical midline tenderness. RESPIRATORY: Clear to auscultation. No wheezes. Normal respiratory effort. CARDIAC: Normal rate. Normal rhythm. Extremities warm and well perfused. GI: Soft, non-distended. No tenderness to palpation. RECTAL: Deferred. MUSCULOSKELETAL: Significant bruising of the left shoulder, no pain with ROM. There is a 5 cm left flank hematoma noted with tenderness to palpation. Chest examination reveals no tenderness. LOWER EXTREMITIES: Scattered bruising. Calves are equal size bilaterally and non-tender. No edema. NEURO: Normal sensorium. No sensory or motor deficits noted. No facial droop. SKIN: Scattered diffuse bruising. Warm and dry. No jaundice noted. Course 1546: The patient was evaluated in room C7, and a complete history and physical examination were performed. 1650: I consulted Dr. Bartlett Oncology, who states that the patient is able to be discharged home as long as there are no acute traumatic injuries. 1730: I updated the patient on current results. 1737: I consulted Dr. Martinez General Surgery, who recommends antibiotics but states there is no current surgical intervention required at this time. 1748: I consulted Mansi Jessica PA-C: Stephania Milind. The patient will be reevaluated for hospitalization. Consultations Consultation #1: I consulted Dr. Bartlett Oncology, who states that the patient is able to be discharged home as long as there are no acute traumatic injuries. Time: 16:50 Consultation #2: I consulted Dr. Martinez General Surgery, who recommends antibiotics but states there is no current surgical intervention required at this time. Time: 17:37 Consultation #3: I consulted Mansi Jessica PA-C: [facility]. The patient will be reevaluated for hospitalization. Time: 17:48 Administered Medications Acetaminophen (Tylenol) 650 mg PO Q4H PRN PRN Reason: Pain or Fever Stop: 11/21/18 18:42 Last Admin: 10/22/18 18:47 Dose: 650 mg Documented by: [id number] Acyclovir (Zovirax) 400 mg PO BID YELITZA Stop: 11/21/18 20:59 Last Admin: 10/22/18 21:16 Dose: 400 mg Documented by: [id number] Brimonidine Tartrate (Alphagan-P 0.15%) 1 drops OPB BID YELITZA Stop: 11/21/18 20:59 Last Admin: 10/22/18 21:14 Dose: 1 drops Documented by: [id number] Digoxin (Lanoxin) 0.125 mg PO DAILY@1600 [facility] Stop: 11/21/18 20:59 Last Admin: 10/22/18 21:15 Dose: 0.125 mg Documented by: [id number] Megestrol Acetate (Megace) 40 mg PO QID YELITZA Stop: 11/21/18 20:59 Last Admin: 10/22/18 21:16 Dose: 40 mg Documented by: [id number] Metoprolol Succinate (Toprol Xl) 25 mg PO BID YELITZA Stop: 11/21/18 20:59 Last Admin: 10/22/18 21:16 Dose: 25 mg Documented by: [id number] Potassium Chloride (Klor-Con M20) 20 meq PO BID YELITZA Stop: 11/21/18 20:59 Last Admin: 10/22/18 21:14 Dose: 20 meq Documented by: [id number] Discontinued Medications Sodium Chloride (Nss) 500 mls @ 999 mls/hr IV .Q31M YELITZA Stop: 10/22/18 16:45 Last Infusion: 10/22/18 16:44 Dose: 0 mls/hr Documented by: [id number] Admin: 10/22/18 16:13 Dose: 999 mls/hr Documented by: [id number] Ertapenem 1,000 mg/ Sodium (Chloride) 60 mls @ 100 mls/hr IV 1743 YELITZA Stop: 10/22/18 19:00 Last Infusion: 10/22/18 19:08 Dose: 0 mls/hr Documented by: [id number] Admin: 10/22/18 18:37 Dose: 100 mls/hr Documented by: [id number] Ioversol (Optiray 320 100ml) 94 ml IV ONCE PRN PRN Reason: Interaction Checking Stop: 10/26/18 16:52 Last Admin: 10/22/18 16:53 Dose: 94 ml Documented by: [id number] Medical Decision Making Differential Diagnosis Differential diagnosis: Etiologies such as benign positional vertigo, dehydration, hypovolemia, anemia, tumor, infection, hypoglycemia, electrolyte abnormalities, cardiac sources, intracerebral event, toxicologic, fracture, dislocation, intra-abdominal, pneumothorax, intrathoracic , intracranial, neurologic, as well as other pathologies were entertained. Medical Records Attestation: I reviewed the patient's medical records. Home Medications Current Medication List: was personally reviewed by me Laboratory Data Attestation: I reviewed the patient's lab results. Result diagrams: 10/22/18 15:34 10/22/18 15:34 Lab Results 10/22/18 10/22/18 10/22/18 Range/Units 15:34 15:34 15:34 WBC 2.50 L (4.8-10.8) K/uL RBC 3.48 L (4.2-5.4) M/uL Hgb 10.1 L (12.0-16.0) g/dL Hct 29.8 L (37-47) % MCV 85.6 (80-100) fL MCH 29.0 (25-34) pg MCHC 33.9 (32-36) g/dL RDW Std Deviation 45.5 (36.4-46.3) fL RDW Coeff of Jemal 14.6 H (11.5-14.5) % Plt Count 29 L* D (130-400) K/uL MPV 9.4 (7.4-10.4) fL Neutrophils % (Manual) 4.5 % Lymphocytes % (Manual) 41.9 % Monocytes % (Manual) 5.4 % Metamyelocytes % (Man) 0.9 % Myelocytes % (Man) 11.6 % Blast Cells % (Manual) 35.7 % Neutrophils # (Manual) 0.11 L (1.4-6.5) K/uL Total Absolute Neuts 0.11 L* (1.4-6.5) K/uL Lymphocytes # (Manual) 1.05 L (1.2-3.4) K/uL Total Abs Lymphocytes 1.05 L (1.2-3.4) K/uL Monocytes # (Manual) 0.14 (0.11-0.59) K/uL Metamyelocytes # (Man) 0.02 H (0-0) K/uL Myelocytes # (Manual) 0.29 H (0-0) K/uL Blast Cells # (Man) 0.89 H (0-0) K/uL Blood Smear Review RBC Morphology Unremarkable PT 10.9 (9.0-12.0) Seconds INR 1.1 (0.9-1.1) Sodium 138 (136-145) mmol/L Potassium 4.5 (3.5-5.1) mmol/L Chloride 108 H (98-107) mmol/L Carbon Dioxide 26 (21-32) mmol/L Anion Gap 5.0 (3-11) BUN 28 H (7-18) mg/dl Creatinine 0.78 (0.6-1.2) mg/dl Est Cr Clr Drug Dosing 53.5 ml/min Est GFR ( Amer) 88.0 Est GFR (Non-Af Amer) 76.0 BUN/Creatinine Ratio 36.0 H (10-20) Glucose 91 (70-99) mg/dl Calcium 8.9 (8.5-10.1) mg/dl Total Bilirubin 0.3 (0.2-1) mg/dl AST 11 L (15-37) U/L ALT 14 (12-78) U/L Alkaline Phosphatase 144 H (45-117) U/L Troponin I 0.036 (0-0.045) ng/ml Total Protein 6.7 (6.4-8.2) gm/dl Albumin 2.9 L (3.4-5.0) gm/dl Globulin 3.8 (2.5-4.0) gm/dl Albumin/Globulin Ratio 0.8 L (0.9-2) Urine Color Urine Appearance (Clear) Urine pH (4.5-7.5) Ur Specific [place] (1.000-1.030) Urine Protein (Negative) Urine Glucose (UA) (Negative) Urine Ketones (Negative) Urine Blood (Negative) Urine Nitrite (Negative) Urine Bilirubin (Negative) Urine Urobilinogen (Negative) Ur Leukocyte Esterase (Negative) Blood Type Antibody Screen Crossmatch 10/22/18 10/22/18 Range/Units 18:10 20:35 WBC (4.8-10.8) K/uL RBC (4.2-5.4) M/uL Hgb (12.0-16.0) g/dL Hct (37-47) % MCV (80-100) fL MCH (25-34) pg MCHC (32-36) g/dL RDW Std Deviation (36.4-46.3) fL RDW Coeff of Jemal (11.5-14.5) % Plt Count (130-400) K/uL MPV (7.4-10.4) fL Neutrophils % (Manual) % Lymphocytes % (Manual) % Monocytes % (Manual) % Metamyelocytes % (Man) % Myelocytes % (Man) % Blast Cells % (Manual) % Neutrophils # (Manual) (1.4-6.5) K/uL Total Absolute Neuts (1.4-6.5) K/uL Lymphocytes # (Manual) (1.2-3.4) K/uL Total Abs Lymphocytes (1.2-3.4) K/uL Monocytes # (Manual) (0.11-0.59) K/uL Metamyelocytes # (Man) (0-0) K/uL Myelocytes # (Manual) (0-0) K/uL Blast Cells # (Man) (0-0) K/uL Blood Smear Review RBC Morphology PT (9.0-12.0) Seconds INR (0.9-1.1) Sodium (136-145) mmol/L Potassium (3.5-5.1) mmol/L Chloride (98-107) mmol/L Carbon Dioxide (21-32) mmol/L Anion Gap (3-11) BUN (7-18) mg/dl Creatinine (0.6-1.2) mg/dl Est Cr Clr Drug Dosing ml/min Est GFR ( Amer) Est GFR (Non-Af Amer) BUN/Creatinine Ratio (10-20) Glucose (70-99) mg/dl Calcium (8.5-10.1) mg/dl Total Bilirubin (0.2-1) mg/dl AST (15-37) U/L ALT (12-78) U/L Alkaline Phosphatase (45-117) U/L Troponin I (0-0.045) ng/ml Total Protein (6.4-8.2) gm/dl Albumin (3.4-5.0) gm/dl Globulin (2.5-4.0) gm/dl Albumin/Globulin Ratio (0.9-2) Urine Color Yellow Urine Appearance Clear (Clear) Urine pH 6.0 (4.5-7.5) Ur Specific [place] 1.045 H (1.000-1.030) Urine Protein Negative (Negative) Urine Glucose (UA) Negative (Negative) Urine Ketones Negative (Negative) Urine Blood Negative (Negative) Urine Nitrite Negative (Negative) Urine Bilirubin Negative (Negative) Urine Urobilinogen Negative (Negative) Ur Leukocyte Esterase Negative (Negative) Blood Type A Negative Antibody Screen NEGATIVE Crossmatch See Detail Imaging Data Radiologist's Impression: Radiology results as stated below per my review and the radiologist's interpretation: CT OF THE ABDOMEN AND PELVIS WITH CONTRAST CLINICAL HISTORY: fall, L flank bruising pain COMPARISON STUDY: CT of the abdomen and pelvis July 02, 2012. TECHNIQUE: Following IV administration of 94 mL of Optiray-320, axial images of the abdomen and pelvis were obtained from the lung bases to the proximal femurs. Images were reviewed in the axial, sagittal, and coronal planes. IV contrast was administered without complication. Automated exposure control was utilized for the study. A dose lowering technique was utilized adhering to the principles of ALARA. FINDINGS: Multiple hepatic cysts are noted. There is no biliary or pancreatic ductal dilatation. There is no evidence for traumatic injury to the liver, spleen, adrenal glands, kidneys or pancreas. There is no hydronephrosis. There is mild asymmetric enlargement of the left paraspinal musculature of the lumbar spine. There is adjacent infiltration. A few suspected small left flank subcutaneous contusions are noted. There is no evidence for a bowel obstruction. A 1.1 cm partially calcified central mesenteric lymph node on image 190 of 461 has decreased in size since CT of April 02, 2012. There is moderate wall t hickening and adjacent inflammation of the sigmoid colon with diverticulosis. There is an associated 1.4 cm rim-enhancing fluid collection within the wall of the sigmoid colon. This suggests an intramural abscess. There is no drainable fluid collection. No acute lumbar spine or pelvic fracture is identified. No fractures are identified within visualized portions of the lower ribs. Mesenteric infiltration is unchanged. 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 Celiac axis and inferior mesenteric artery are patent. IMPRESSION: 1. Moderate sigmoid colon wall thickening with adjacent infiltration consistent with acute sigmoid diverticulitis. Small associated 1.4 cm intramural abscess. No drainable fluid collection. A follow-up nonemergent colonoscopy once symptoms resolve is recommended to exclude the less likely possibility of a neoplasm. 2. Asymmetric enlargement of the left paraspinal musculature of the mid to upper lumbar spine suggestive of a small amount of intramuscular hemorrhage. No active extravasation. Adjacent subcutaneous contusion. 3. Interval decrease in size of a central mesenteric lymph node which may reflect treated lymphoma. 4. 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 Electronically signed by: Raul Starks M.D. 10/22/2018 5:13 PM SINGLE VIEW CHEST CLINICAL HISTORY: Fall. Dyspnea. FINDINGS: An AP, portable, upright chest radiograph is compared to study dated 06/09/2018 and correlated with chest CT dated 06/19/2017. The examination is degraded by portable technique and patient rotation. A right subclavian central venous infusion port is unchanged in position. The cardiomediastinal silhouette is unremarkable. The lungs and pleural spaces are clear. No pneumothorax is seen. The skeletal structures are osteopenic. The bony thorax is grossly intact. IMPRESSION: No acute cardiopulmonary abnormality. Electronically signed by: Jose Johnson M.D. 10/22/2018 4:[address] SCAN OF THE BRAIN WITHOUT IV CONTRAST CLINICAL HISTORY: Fall. Headache. COMPARISON STUDY: No priors. TECHNIQUE: Unenhanced axial CT scan of the brain is performed from the vertex to the skull base. A dose lowering technique was utilized adhering to the principles of ALARA. The skull base was scanned twice due to motion artifact. CT DOSE: 972.29 mGy.cm FINDINGS: Brain parenchyma: There are age-related involutional changes noting mild subcortical and periventricular microangiopathic change. There is no hemorrhage, mass effect, or evidence of acute territorial ischemia by CT criteria. Bartlett-whi te matter differentiation is preserved. No extra-axial fluid collection is seen. Ventricles, sulci, cisterns: Prominent secondary to involutional change. Intracranial vasculature: There is atherosclerotic calcification of the cavernous carotid and vertebral arteries. Calvarium: The skeletal structures are osteopenic. No depressed calvarial fracture is seen. Soft tissues: There is minimal frontal scalp contusion. Sinuses and mastoids: The visualized paranasal sinuses are clear. The mastoid a ir cells are well pneumatized. Orbits: The bony orbits are grossly intact. There is evidence of bilateral ocular lens surgery. IMPRESSION: There is no hemorrhage, mass effect, or evidence of acute territorial ischemia by CT criteria. Electronically signed by: Jose Johnson M.D. 10/22/2018 5:04 PM ECG Data Attestation: I personally reviewed and interpreted this ECG as follows: Indication: other (dizziness) Rate (beats per minute): 80 Rhythm: normal sinus Findings: + left axis deviation; no PVC, no ST depression and no ST elevation Blood Pressure Blood Pressure Findings: Normal blood pressure Blood Pressure Disposition: did not require urgent referral Head Trauma GCS Score: 15 MDM Narrative Patient is a 73-year-old female with a history of AML, thrombocytopenia, anemia transfusion dependent, heart failure, hypertension, presenting from home to you today after receiving platelets and blood. Evidently last 3 weeks has been intimately experiencing some dizziness and falling. Given the thrombus cytopenia she is experiencing significant bruising has been a seen by her doctor and had a head CT on . States that she fell last night she felt dizzy did not actually fully go unconscious. Denies any neck pain or chest pain. States little bit short of breath at the baseline. No ome bruising of left shoulder but no significant bony tenderness noted believe this is just soft tissue involvement. Given a bit of bruising on the left eye CT the head was completed. Do not believe any CT of the neck is needed. CT the abdomen pelvis was completed to exclude bleed. Repeat laboratory studies were completed including kidney function and electrolytes. A small chronic troponin is noted but again I do not believe this is acute ACS. CT of the head without acute process. Intramuscular hematoma noted in the left flank however acute diverticulosis is noted with an intramural abscess on abdomen/pelvis CT. Discussed with surgery who states there is no acute intervention of the in IV therapy. Given her neutropenic state believe inpatient IV antibiotics are in dicated. Discussed with patient. This makes me think this could be why she been feeling more weak and having more falls recently. Given a dose of IV ertapenem after discussion with the pharmacist. Royce contacted for admission. Impression & Plan Diverticulitis, Neutropenic Discharge Plan Visit Data *Final* Discharge Date/Time: 10/22/18 19:09 Chief Complaint: Fall Stated Complaint: FALL, BACK SORE & HAS HEADACHE ED Provider: Michele Charles Discharge Problem: Diverticulitis, Neutropenic Patient Disposition: Admitted As Inpatient Discharge Instructions Interventions: ED Discharge Assessment Last Done: 10/22/18 19:09 Discharge Problem: Neutropenic Qualifiers: Neutropenia type: unspecified Qualified Code(s): D70.9 - Neutropenia, unspecified The thaliaibaudelia's documentation has been prepared under my direction and personally reviewed by me in its entirety. I confirm that the note above accurately ref lects all work, treatment, procedures, and medical decision making performed by me.
[2018-10-22] MEDS ORDERED: ERTAPENEM CONSULT ACTIVE PRN (20:30)
[2018-10-22] MEDS: POTASSIUM CHLORIDE 20 MEQ TABCR PO SCH (21:14)
[2018-10-22] MEDS: BRIMONIDINE TARTRATE-P 0.15% 5 ML BTL OPB SCH (21:14)
[2018-10-22] MEDS: DIGOXIN 0.125 MG TAB PO SCH (21:15)
[2018-10-22] MEDS: ACYCLOVIR 400 MG TAB PO SCH (21:16)
[2018-10-22] MEDS: METOPROLOL SUCC 25MG EXT REL TAB PO SCH (21:16)
[2018-10-22] MEDS: MEGESTROL ACETATE 40 MG TAB PO SCH (21:16)
[2018-10-23] MEDS: ACETAMINOPHEN 325 MG TAB PO PRN ×2 (02:49→07:49)
[2018-10-23] MEDS: HEPARIN 100 UNIT/ML 5ML FLUSH FLUSH PRN ×2 (06:08→07:54)
[2018-10-23 06:51] LABS: Calcium 9.1 mg/dl (8.5-10.1); Creatinine Clr Calc Pharmacy 69.6 ml/min; Est GFR (African American) 105.5; Est GFR (Non-African American) 91.1; Potassium 4.3 mmol/L (3.5-5.1)
[2018-10-23 07:12] LABS: Hemoglobin 9.7 g/dL (12.0-16.0); Mean Corpuscular Hgb Conc 34.6 g/dL (32-36); Mean Corpuscular Volume 85.1 fL (80-100); Mean Platelet Volume 9.6 fL (7.4-10.4); Platelet Count 18 K/uL (130-400); RDW Coefficient of Variation 14.8 % (11.5-14.5); RDW Standard Deviation 46.6 fL (36.4-46.3); Red Blood Count 3.29 M/uL (4.2-5.4); White Blood Count 1.89 K/uL (4.8-10.8)
[2018-10-23 07:15] LABS: Hypogranular Neutrophils 1+
[2018-10-23 07:17] LABS: ALC (manual) 0.44 K/uL (1.2-3.4); Blast # (manual) 1.07 K/uL (0-0); Blast Cells % (manual) 56.4 %; Lymphocytes # (manual) 0.44 K/uL (1.2-3.4); Lymphocytes % (manual) 23.5 %; Monocytes # (manual) 0.02 K/uL (0.11-0.59); Monocytes % (manual) 0.9 %; Myelocytes # (manual) 0.02 K/uL (0-0); Myelocytes % (manual) 0.9 %; Neutrophils % (manual) 14.8 %; Promyelocytes # (manual) 0.07 K/uL (0-0); Promyelocytes % (manual) 3.5 %
[2018-10-23] MEDS: ONDANSETRON INJ 2 MG/ML 2 ML VIAL IV PRN ×2 (07:48→17:47)
--- NOTE | 2018-10-23 08:41 | Surgery Consultation ---
Date of Consultation October 23, 2018 Assessment & Plan (1) Diverticulitis of large intestine with abscess: Small diverticular abscess found incidentally on CT. Continue IV abx with selection and duration according to ID. Will probably need alternative living arrangements, she had been considering [facility]. Goals should be discussed with oncology. Consider f/u CT at conclusion of abx, no other surgical recommendations at this time. as above. no GI symptoms whatsover. abd: soft/nt agree with repeat ct at some point as well as colonoscopy in about 6-8 weeks will sign off. please call if needed. History of Present Illness Attending Physician: Augustus Goyal MD History of Present Illness 73 y/o female with three recent falls, decline in health over the past year during treatment for AML. Had transfusion yesterday referred to the ED for left flank pain and ecchymosis from her recent fall. CT showed diverticulitis with 1.4 cm intramural abscess. She does not have abdominal pain. Appetite has been poor for some time, 50+ pound weight loss over the past year. She has mixed diarrhea and constipation over the past year. No previous diverticulitis, had colonoscopy in 05/04 showing diverticuli only and repeat recommended in 10 years. She lives alone, has a brother locally and a son who lives out of town. Allergies Allergy/AdvReac Type Severity Reaction Status Date / Time cefepime Allergy Intermediate RASH Verified 10/23/18 10:07 azithromycin AdvReac Intermediate Hypotension Verified 10/22/18 10:18 mivacurium AdvReac Intermediate CRASHED TO Verified 10/22/18 10:18 FLOOR Home Medications Home Medications Medication Instructions Recorded Confirmed Type Alphagan P 1 drp OPB BID 03/26/18 10/22/18 History Cresemba 372 mg PO DAILY 03/26/18 10/22/18 History acetaminophen [Tylenol] 650 mg PO Q6 PRN 03/26/18 10/22/18 History acyclovir [Zovirax] 400 mg PO BID 03/26/18 10/22/18 History allopurinol 300 mg PO DAILY 03/26/18 10/22/18 History digoxin 125 mcg PO DAILY 03/26/18 10/22/18 History levofloxacin [Levaquin] 500 mg PO DAILY 03/26/18 10/22/18 History potassium chloride [Klor-Con M20] 20 meq PO BID 03/26/18 10/22/18 History sennosides [Senokot] 8.6 mg PO DAILY PRN 03/26/18 10/22/18 History megestrol 40 mg PO QID 07/09/18 10/22/18 History metoprolol succinate 25 mg PO BID #60 tab 07/11/18 10/22/18 Rx omeprazole 40 mg PO DAILY 10/22/18 10/22/18 History Patient History Medical History Biventricular heart failure (Chronic) Neutropenia (Chronic) Anemia (Chronic) Exertional shortness of breath (Chronic) CKD (chronic kidney disease), stage III (Chronic) Dyslipidemia (Chronic) HTN (hypertension) (Chronic) History of hysterectomy (Resolved) AML (acute myeloblastic leukemia) (Chronic) Thrombocytopenia (Chronic) Lymphoma, follicular (Chronic) - s/p chemo, radiation. 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 Beliefs That Will Affect Care: None Current Living Situation: Alone Current Living Situation Comment: home Other Information That Helps Us Care for You: No Feels Safe at Home: Yes Safety Concerns: Feels Safe At This Time Smoking Status: Never smoker Hx Alcohol Use: No Hx Substance Use: No Review of Systems Constitutional: + malaise, + anorexia and + weight loss; no fever and no chills Gastrointestinal: no abdominal pain, no bloating, no nausea and no vomiting Physical Exam Vital Signs (Past 24 Hours): Last Vital Signs Temp 36.6 C 10/23/18 07:47 Pulse 85 10/23/18 07:47 Resp 16 10/23/18 07:47 BP 153/80 H 10/23/18 07:47 Pulse Ox 99 10/23/18 07:47 Constitutional: + thin and + frail appearing Respiratory: normal respiratory effort, lungs clear to auscultation + respiratory distress Cardiovascular: RRR, no murmur, no edema Gastrointestinal (Abdomen): Inspection/Auscultation: abdomen not distended Percussion/Palpation: abdomen soft; abdomen nontender
[2018-10-23] MEDS: ALLOPURINOL 300 MG TAB PO SCH (08:59)
[2018-10-23] MEDS: ACYCLOVIR 400 MG TAB PO SCH ×2 (08:59→20:30)
[2018-10-23] MEDS: PANTOprazole 40 MG TAB PO SCH (08:59)
[2018-10-23] MEDS: POTASSIUM CHLORIDE 20 MEQ TABCR PO SCH ×2 (09:00→20:30)
[2018-10-23] MEDS: BRIMONIDINE TARTRATE-P 0.15% 5 ML BTL OPB SCH ×2 (09:00→20:29)
[2018-10-23] MEDS: METOPROLOL SUCC 25MG EXT REL TAB PO SCH ×2 (09:00→20:31)
[2018-10-23] MEDS: MEGESTROL ACETATE 40 MG TAB PO SCH ×4 (09:00→20:31)
[2018-10-23] MEDS ORDERED: ISAVUCONAZONIUM SULFATE 372 MG PO SCH (09:00)
--- NOTE | 2018-10-23 10:01 | Gastrointestinal Consultation ---
Date of Consultation October 23, 2018 Assessment & Plan (1) Diverticulitis of large intestine with abscess: Pt is a 73 y/o female admitted for falls, weakness, incidentally found to have an acute sigmoid diverticulitis w 1.4cm abscess on her CT abd/pelvis that was done to assess her injuries following the fall. She did have diarrhea last week but went back to being constipated which is her baseline. Denies abd pain, n/v, rectal bleeding. This is her first diverticulitis episode. Last colonoscopy 2011 - Continue Ertapenem IV - Surgery consulted by primary team - no surgical intervention recommended. - F/U CT in 2-3 week's time to eval for resolution of abscess - Discussed indication for repeat colonoscopy to r/o neoplastic processes in about 6-8 weeks' after her diverticulitis but she at this time would like to defer - Continue f/u w Heme/Onc for hx of follicular lymphoma, AML, pancytopenia management. - Pls recall GI as needed. Supervising Physician Co-Signing Physician Notes I saw and evaluated the patient with Ms. Lopez. We are consulted after she presented with flank discomfort. CT scan showed evidence of diverticulitis with a small pericolonic abscess. The patient last had a colonoscopy [place] [address] Sanford notable for diffuse diverticulosis of the colon. The patient is presently on chemotherapy for AML. She notes that she does not have any abdominal pain nausea or vomiting today. She does continue to have some flank pain which localizes to her right hand side per Physical exam Thin female in no obvious distress No abdominal tenderness noted today Impression: Patient with diverticulitis and a small pericolonic abscess. Would recommend at least a 2-week course of antibiotic therapy. Typically we would suggest an outpatient colonoscopy in 6-8 weeks, the patient is presently not certain if she would like to pursue this. Recommendations Continue with broad-spectrum antibiotics for total of 2 weeks Patient to consider outpatient colonoscopy in 8-12 weeks Please call with any additional questions or concerns, GI to sign off for the present time History of Present Illness Reason for Consultation: Diverticulitis Requesting Physician: Dr. Augustus Goyal Attending Physician: Dr. Abril Cai History of Present Illness Pt is 73 y/o F with PMHx of follicular lymphoma, AML last chemo 08/2018, pancytopenia, and platelet transfusion dependent, biventricular heart failure, HTN, dyslipidemia, glaucoma, CKD III,h/o PE who presented to ED yesterday w c/o weakness and falling. She feels dizzy when trying to stand up from sitting up and when walking she kept feeling weakness on knees causing her to fall. Imaging studies done to assess her injuries included head CT and CXR which were unremarkable. Though it's noted on her CT abd/pelvis w contrast intramuscular hemorrhage on mid/upper lumbar area, subcutaneous contusion. It's also incidentally noted that she has an acute sigmoid diverticulitis w 1.4cm intramural abscess but no drainable fluid collection. Labs showed pancytopenia, she's given 1 U irradiated PRBC yesterday. CMP unremarkable otherwise. Pt denies any fever, chills, abd pain, n/v. She did have diarrhea about 1 week ago but then back to her usual constipated state. Took Senokot last weekend and finally had BM yesterday. Last colonocopy 2011: diverticuli Allergies Allergy/AdvReac Type Severity Reaction Status Date / Time cefepime Allergy Intermediate RASH Verified 10/23/18 10:07 azithromycin AdvReac Intermediate Hypotension Verified 10/22/18 10:18 mivacurium AdvReac Intermediate CRASHED TO Verified 10/22/18 10:18 FLOOR Home Medications Home Medications Medication Instructions Recorded Confirmed Type Alphagan P 1 drp OPB BID 03/26/18 10/22/18 History Cresemba 372 mg PO DAILY 03/26/18 10/22/18 History acetaminophen [Tylenol] 650 mg PO Q6 PRN 03/26/18 10/22/18 History acyclovir [Zovirax] 400 mg PO BID 03/26/18 10/22/18 History allopurinol 300 mg PO DAILY 03/26/18 10/22/18 History digoxin 125 mcg PO DAILY 03/26/18 10/22/18 History levofloxacin [Levaquin] 500 mg PO DAILY 03/26/18 10/22/18 History potassium chloride [Klor-Con M20] 20 meq PO BID 03/26/18 10/22/18 History sennosides [Senokot] 8.6 mg PO DAILY PRN 03/26/18 10/22/18 History megestrol 40 mg PO QID 07/09/18 10/22/18 History metoprolol succinate 25 mg PO BID #60 tab 07/11/18 10/22/18 Rx omeprazole 40 mg PO DAILY 10/22/18 10/22/18 History Patient History Medical History Biventricular heart failure (Chronic) Neutropenia (Chronic) Anemia (Chronic) Exertional shortness of breath (Chronic) CKD (chronic kidney disease), stage III (Chronic) Dyslipidemia (Chronic) HTN (hypertension) (Chronic) History of hysterectomy (Resolved) AML (acute myeloblastic leukemia) (Chronic) Thrombocytopenia (Chronic) Lymphoma, follicular (Chronic) - s/p chemo, radiation. 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 Physical Exam Vital Signs (Past 24 Hours): Last Vital Signs Temp 36.6 C 10/23/18 07:47 Pulse 85 10/23/18 07:47 Resp 16 10/23/18 07:47 BP 153/80 H 10/23/18 07:47 Pulse Ox 99 10/23/18 07:47 Constitutional: WD/WN, vitals as above well groomed, cooperative and comfortable Eyes: PERRL, conjunctivae normal, anicteric sclerae Bruising above L eye ENMT: external ear and nose normal, oropharynx normal Respiratory: normal respiratory effort, lungs clear to auscultation Cardiovascular: RRR, no murmur, no edema Gastrointestinal (Abdomen): normal bowel sounds, soft, nontender, no hepatosplenomegaly Skin: no rashes, warm and dry no jaundice several bruising areas to back Neurologic: Motor/Sensory: no asterixis Psychiatric: A+Ox3, euthymic affect Lymphatic: no lymphedema Results & Data Laboratory Results Laboratory Results - last 72 hr 10/22/18 10/22/18 10/22/18 15:34 15:34 15:34 WBC 2.50 L RBC 3.48 L Hgb 10.1 L Hct 29.8 L MCV 85.6 MCH 29.0 MCHC 33.9 RDW Std Deviation 45.5 RDW Coeff of Jemal 14.6 H Plt Count 29 L* D MPV 9.4 Neutrophils % (Manual) 4.5 Lymphocytes % (Manual) 41.9 Monocytes % (Manual) 5.4 Metamyelocytes % (Man) 0.9 Myelocytes % (Man) 11.6 Promyelocytes % (Man) Blast Cells % (Manual) 35.7 Neutrophils # (Manual) 0.11 L Total Absolute Neuts 0.11 L* Lymphocytes # (Manual) 1.05 L Total Abs Lymphocytes 1.05 L Monocytes # (Manual) 0.14 Metamyelocytes # (Man) 0.02 H Myelocytes # (Manual) 0.29 H Promyelocytes # (Man) Blast Cells # (Man) 0.89 H Hypogranular Neuts Blood Smear Review RBC Morphology Unremarkable PT 10.9 INR 1.1 Sodium 138 Potassium 4.5 Chloride 108 H Carbon Dioxide 26 Anion Gap 5.0 BUN 28 H Creatinine 0.78 Est Cr Clr Drug Dosing 53.5 Est GFR ( Amer) 88.0 Est GFR (Non-Af Amer) 76.0 BUN/Creatinine Ratio 36.0 H Glucose 91 Calcium 8.9 Total Bilirubin 0.3 AST 11 L ALT 14 Alkaline Phosphatase 144 H Troponin I 0.036 Total Protein 6.7 Albumin 2.9 L Globulin 3.8 Albumin/Globulin Ratio 0.8 L Urine Color Urine Appearance Urine pH Ur Specific [place] Urine Protein Urine Glucose (UA) Urine Ketones Urine Blood Urine Nitrite Urine Bilirubin Urine Urobilinogen Ur Leukocyte Esterase Blood Type Antibody Screen Crossmatch 10/22/18 10/22/18 10/23/18 18:10 20:35 06:07 WBC 1.89 L RBC 3.29 L Hgb 9.7 L Hct 28.0 L MCV 85.1 MCH 29.5 MCHC 34.6 RDW Std Deviation 46.6 H RDW Coeff of Jemal 14.8 H Plt Count 18 L* MPV 9.6 Neutrophils % (Manual) 14.8 Lymphocytes % (Manual) 23.5 Monocytes % (Manual) 0.9 Metamyelocytes % (Man) Myelocytes % (Man) 0.9 Promyelocytes % (Man) 3.5 Blast Cells % (Manual) 56.4 Neutrophils # (Manual) 0.28 L Total Absolute Neuts 0.28 L* Lymphocytes # (Manual) 0.44 L Total Abs Lymphocytes 0.44 L Monocytes # (Manual) 0.02 L Metamyelocytes # (Man) Myelocytes # (Manual) 0.02 H Promyelocytes # (Man) 0.07 H Blast Cells # (Man) 1.07 H Hypogranular Neuts 1+ Blood Smear Review RBC Morphology PT INR Sodium Potassium Chloride Carbon Dioxide Anion Gap BUN Creatinine Est Cr Clr Drug Dosing Est GFR ( Amer) Est GFR (Non-Af Amer) BUN/Creatinine Ratio Glucose Calcium Total Bilirubin AST ALT Alkaline Phosphatase Troponin I Total Protein Albumin Globulin Albumin/Globulin Ratio Urine Color Yellow Urine Appearance Clear Urine pH 6.0 Ur Specific [place] 1.045 H Urine Protein Negative Urine Glucose (UA) Negative Urine Ketones Negative Urine Blood Negative Urine Nitrite Negative Urine Bilirubin Negative Urine Urobilinogen Negative Ur Leukocyte Esterase Negative Blood Type A Negative Antibody Screen NEGATIVE Crossmatch See Detail 10/23/18 06:07 WBC RBC Hgb Hct MCV MCH MCHC RDW Std Deviation RDW Coeff of Jemal Plt Count MPV Neutrophils % (Manual) Lymphocytes % (Manual) Monocytes % (Manual) Metamyelocytes % (Man) Myelocytes % (Man) Promyelocytes % (Man) Blast Cells % (Manual) Neutrophils # (Manual) Total Absolute Neuts Lymphocytes # (Manual) Total Abs Lymphocytes Monocytes # (Manual) Metamyelocytes # (Man) Myelocytes # (Manual) Promyelocytes # (Man) Blast Cells # (Man) Hypogranular Neuts Blood Smear Review RBC Morphology PT INR Sodium 139 Potassium 4.3 Chloride 107 Carbon Dioxide 26 Anion Gap 6.0 BUN 19 H Creatinine 0.60 Est Cr Clr Drug Dosing 69.6 Est GFR ( Amer) 105.5 Est GFR (Non-Af Amer) 91.1 BUN/Creatinine Ratio 31.0 H Glucose 90 Calcium 9.1 Total Bilirubin AST ALT Alkaline Phosphatase Troponin I Total Protein Albumin Globulin Albumin/Globulin Ratio Urine Color Urine Appearance Urine pH Ur Specific [place] Urine Protein Urine Glucose (UA) Urine Ketones Urine Blood Urine Nitrite Urine Bilirubin Urine Urobilinogen Ur Leukocyte Esterase Blood Type Antibody Screen Crossmatch
--- NOTE | 2018-10-23 10:54 | Infectious Disease Consult ---
Date of Consultation October 23, 2018 Assessment & Plan (1) Diverticulitis of large intestine with abscess: 73-year-old female with AML, pancytopenia, now with relatively asymptomatic sigmoid diverticulitis with small abscess formation. Likely unrelated to her current complaints of dizziness, headaches, and visual changes. IV ertapenem appropriate for now, can hopefully transition to oral antibiotics once she is taking adequate p.o. Will follow. History of Present Illness Reason for Consultation: Diverticulitis, immunocompromised Attending Physician: Augustus Goyal MD History of Present Illness 73-year-old female with complicated medical history including AML, pancytopenia, biventricular heart failure, chronic kidney disease, prior history of lymphoma, who has been complaining of several weeks of dizziness, weakness, headaches, and frequent falls. Recently suffered a fall and was brought to the emergency department, and abdominal CT scan revealed evidence of sigmoid diverticulitis with small abscess. Patient has had mild diarrhea week earlier, but now only complaining of constipation. Denies any significant pain. No fever or chills. No obvious bleeding. Allergies Allergy/AdvReac Type Severity Reaction Status Date / Time cefepime Allergy Intermediate RASH Verified 10/23/18 10:07 azithromycin AdvReac Intermediate Hypotension Verified 10/22/18 10:18 mivacurium AdvReac Intermediate CRASHED TO Verified 10/22/18 10:18 FLOOR Home Medications Home Medications Medication Instructions Recorded Confirmed Type Alphagan P 1 drp OPB BID 03/26/18 10/22/18 History Cresemba 372 mg PO DAILY 03/26/18 10/22/18 History acetaminophen [Tylenol] 650 mg PO Q6 PRN 03/26/18 10/22/18 History acyclovir [Zovirax] 400 mg PO BID 03/26/18 10/22/18 History allopurinol 300 mg PO DAILY 03/26/18 10/22/18 History digoxin 125 mcg PO DAILY 03/26/18 10/22/18 History levofloxacin [Levaquin] 500 mg PO DAILY 03/26/18 10/22/18 History potassium chloride [Klor-Con M20] 20 meq PO BID 03/26/18 10/22/18 History sennosides [Senokot] 8.6 mg PO DAILY PRN 03/26/18 10/22/18 History megestrol 40 mg PO QID 07/09/18 10/22/18 History metoprolol succinate 25 mg PO BID #60 tab 07/11/18 10/22/18 Rx omeprazole 40 mg PO DAILY 10/22/18 10/22/18 History Patient History Medical History Biventricular heart failure (Chronic) Neutropenia (Chronic) Anemia (Chronic) Exertional shortness of breath (Chronic) CKD (chronic kidney disease), stage III (Chronic) Dyslipidemia (Chronic) HTN (hypertension) (Chronic) History of hysterectomy (Resolved) AML (acute myeloblastic leukemia) (Chronic) Thrombocytopenia (Chronic) Lymphoma, follicular (Chronic) - s/p chemo, radiation. 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 Beliefs That Will Affect Care: None Current Living Situation: Alone Current Living Situation Comment: home Other Information That Helps Us Care for You: No Feels Safe at Home: Yes Safety Concerns: Feels Safe At This Time Smoking Status: Never smoker Hx Alcohol Use: No Hx Substance Use: No Review of Systems Constitutional: + fatigue and + weakness; no fever Eyes: + seeing flashes Ear, Nose, Mouth, Throat: no problem reported Respiratory: no problem reported Cardiovascular: + lightheadedness Gastrointestinal: as per Subjective / HPI Genitourinary (Female): no problem reported Musculoskeletal: as per Subjective / HPI Multiple ecchymoses Neurologic: as per Subjective / HPI Psychiatric: + depression Endocrine: no problem reported Hematologic / Lymphatic: as per Subjective / HPI Allergy / Immunological: no problem reported Physical Exam Vital Signs (Past 24 Hours): Last Vital Signs Temp 36.6 C 10/23/18 07:47 Pulse 80 10/23/18 08:00 Resp 16 10/23/18 07:47 BP 153/80 H 10/23/18 07:47 Pulse Ox 99 10/23/18 07:47 Constitutional: WD/WN, vitals as above comfortable; no acute distress Eyes: PERRL, conjunctivae normal, anicteric sclerae ENMT: external ear and nose normal, oropharynx normal Neck: trachea midline, no thyromegaly neck nontender Respiratory: normal respiratory effort, lungs clear to auscultation normal percussion; does not use accessory muscles Cardiovascular: Rate/Rhythm: regular rate and regular rhythm Heart Sounds: normal S1 and normal S2; no gallop, no murmur and no cardiac rub Vessels: normal peripheral pulses; no JVD Gastrointestinal (Abdomen): normal bowel sounds, soft, nontender, no hepatosplenomegaly Musculoskeletal: no cyanosis or clubbing, extremities motor strength 5/5 Spine: thoracic spine normal to inspection and lumbar spine normal to inspection; no cervical spinal tenderness Skin: normal turgor and + ecchymosis (Multiple); no rashes Neurologic: moves all extremities and awake; no meningeal signs Psychiatric: A+Ox3, euthymic affect Orientation: cooperative Lymphatic: no cervical or axillary lymphadenopathy no inguinal lymphadenopathy Results & Data Laboratory Results Short CBC 10/22/18 10/23/18 Range/Units 15:34 06:07 WBC 2.50 L 1.89 L (4.8-10.8) K/uL Hgb 10.1 L 9.7 L (12.0-16.0) g/dL Hct 29.8 L 28.0 L (37-47) % Plt Count 29 L* D 18 L* (130-400) K/uL BMP 10/22/18 10/23/18 15:34 06:07 Sodium 138 139 Potassium 4.5 4.3 Chloride 108 H 107 Carbon Dioxide 26 26 BUN 28 H 19 H Creatinine 0.78 0.60 Glucose 91 90 Calcium 8.9 9.1 Cardiac Enzymes 10/22/18 Range/Units 15:34 Troponin I 0.036 (0-0.045) ng/ml Liver Function 10/22/18 Range/Units 15:34 Total Bilirubin 0.3 (0.2-1) mg/dl AST 11 L (15-37) U/L ALT 14 (12-78) U/L Alkaline Phosphatase 144 H (45-117) U/L Albumin 2.9 L (3.4-5.0) gm/dl Urine 10/22/18 Range/Units 18:10 Urine Color Yellow Urine Appearance Clear (Clear) Urine pH 6.0 (4.5-7.5) Ur Specific [place] 1.045 H (1.000-1.030) Urine Protein Negative (Negative) Urine Glucose (UA) Negative (Negative) Diagnostic Findings CT OF THE ABDOMEN AND PELVIS WITH CONTRAST CLINICAL HISTORY: fall, L flank bruising pain COMPARISON STUDY: CT of the abdomen and pelvis July 02, 2012. TECHNIQUE: Following IV administration of 94 mL of [id number]-320, axial images of the abdomen and pelvis were obtained from the lung bases to the proximal femurs. Images were reviewed in the axial, sagittal, and coronal planes. IV contrast was administered without complication. Automated exposure control was utilized for the study. A dose lowering technique was utilized adhering to the principles of ALARA. FINDINGS: Multiple hepatic cysts are noted. There is no biliary or pancreatic ductal dilatation. There is no evidence for traumatic injury to the liver, spleen, adrenal glands, kidneys or pancreas. There is no hydronephrosis. There is mild asymmetric enlargement of the left paraspinal musculature of the lumbar spine. There is adjacent infiltration. A few suspected small left flank subcutaneous contusions are noted. There is no evidence for a bowel obstruction. A 1.1 cm partially calcified central mesenteric lymph node on image 190 of 461 has decreased in size since CT of April 02, 2012. There is moderate wall thickening and adjacent inflammation of the sigmoid colon with diverticulosis. There is an associated 1.4 cm rim-enhancing fluid collection within the wall of the sigmoid colon. This suggests an intramural abscess. There is no drainable fluid collection. No acute lumbar spine or pelvic fracture is identified. No fractures are identified within visualized portions of the lower ribs. Mesenteric infiltration is unchanged. 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 Celiac axis and inferior mesenteric artery are patent. IMPRESSION: 1. Moderate sigmoid colon wall thickening with adjacent infiltration consistent with acute sigmoid diverticulitis. Small associated 1.4 cm intramural abscess. No drainable fluid collection. A follow-up nonemergent colonoscopy once symptoms resolve is recommended to exclude the less likely possibility of a neoplasm. 2. Asymmetric enlargement of the left paraspinal musculature of the mid to upper lumbar spine suggestive of a small amount of intramuscular hemorrhage. No a ctive extravasation. Adjacent subcutaneous contusion. 3. Interval decrease in size of a central mesenteric lymph node which may reflect treated lymphoma. 4. 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 Electronically signed by: Raul Starks M.D. 10/22/2018 5:13 PM Dictated: 10/22/18 [id number]
[2018-10-23] MEDS: levoFLOXacin 500 MG TAB PO SCH (12:54)
[2018-10-23] MEDS ORDERED: MoRPHine SULFATE 4 MG/ML 1 ML CARP\\VIAL IV STA (15:21)
[2018-10-23] MEDS: SODIUM CHLORIDE 0.9% 1000ML 1,000 ML IV SCH (15:57)
[2018-10-23] MEDS: DIGOXIN 0.125 MG TAB PO SCH (16:31)
--- NOTE | 2018-10-23 16:35 | CT Scan Report ---
CT SCAN OF THE BRAIN WITHOUT IV CONTRAST CLINICAL HISTORY: Headache. COMPARISON STUDY: CT of the brain dated 10/22/2018. TECHNIQUE: Unenhanced axial CT scan of the brain is performed from the vertex to the skull base. A do se lowering technique was utilized adhering to the principles of ALARA. CT DOSE: 537.48 mGy.cm FINDINGS: Brain parenchyma: There are age-related involutional changes noting mild subcortical and periventric ular microangiopathic change. There is no hemorrhage, mass effect, or evidence of acute territorial i schemia by CT criteria. Bartlett-white matter differentiation is preserved. No extra-axial fluid collecti on is seen. Ventricles, sulci, cisterns: Prominent secondary to involutional change. Intracranial vasculature: There is atherosclerotic calcification of the cavernous carotid and vertebr al arteries. Calvarium: The skeletal structures are osteopenic. No depressed calvarial fracture is seen. Soft tissues: There is minimal frontal scalp contusion. Sinuses and mastoids: The visualized paranasal sinuses are clear. The mastoid air cells are well pneu matized. Orbits: The bony orbits are grossly intact. There is evidence of bilateral ocular lens surgery. IMPRESSION: There is no hemorrhage, mass effect, or evidence of acute territorial ischemia by CT crit kilo. There has been no change from yesterday. Electronically signed by: Jose Johnson M.D. 10/23/2018 4:34 PM
[2018-10-23] MEDS ORDERED: SODIUM CHLORIDE 0.9% 250 ML IV PRN (16:58)
[2018-10-23] MEDS: ERTAPENEM SODIUM 1,000 MG in SODIUM CHLORIDE 0.9% 50 ML IV SCH (17:28)
[2018-10-24] MEDS: ACETAMINOPHEN 325 MG TAB PO PRN ×5 (00:43→23:14)
[2018-10-24] MEDS: TRAMADOL HCL 50 MG TABLET PO PRN (03:46)
--- NOTE | 2018-10-24 06:26 | Hospitalist Progress Note ---
Date of Service October 24, 2018 delayed entry date of service 10/23/18 Assessment & Plan (1) Diverticulitis of large intestine with abscess: Gen Surg, GI, ID consulted continue Ertapenem IV surgical intervention not recommended repeat CT in 2-3 weeks outpatient colonoscopy 8-112 weeks (2) Fall: (3) Multiple contusions: Pt with hx fall yesterday and reported 3 falls in past month. Prior to falls reports dizziness. CT HEAD:no acute abnormality CT ABD/PELVIS: Asymmetric enlargement of the left paraspinal musculature of the mid to upper lumbar spine suggestive of a small amount of intramuscular hemorrhage. No active extravasation. Adjacent subcutaneous contusion. -Contusion left back, left shoulder, upper and lower extremities -- from underlying infection, abscess? -- check orthostatic vital signs r/o arrhythmia , monitor in tele deconditioning, pt/ot (4) Pancytopenia: (5) AML (acute myeloblastic leukemia): Pt follows with Dr Horvath oncology at [facility] [place] Last chemo 08/2018. [facility] M[facility] and has PRBC transfusion if Hgb<10. Platelet transfusion if Plt<10 on mondays and if Plt<20 on wednesdays and fridays. Receives premedication of Tylenol 650 mg p.o. and Benadryl 50 mg p.o. prior to platelet transfusion and PRBC transfusion 10/22/18 had 1 unit PRBC and platelet transfusion - per patient, received pRBC to maintain Hg >10, plateletpharesis to maintain Plt > 10k 1 unit PRBC ordered no signs of active bleeding -Continue acyclovir, Levaquin, isavuconazonium -Continue radiated PRBCs and platelet transfusion per heme/oncology guidelines (6) Non-ischemic cardiomyopathy: (7) Sinus tachycardia: No CP. Current sinus rhythm rate in 80's Hx echo 02/2018: EF 40%, mild diffuse LV hypokinesis -Continue digoxin, metoprolol (8) CKD (chronic kidney disease), stage III: Cr:0.7. Stable -Monitor renal functions, avoid nephrotoxic agents when possible (9) HTN (hypertension): Stable -Continue metoprolol HEADACHE - CT head ordered to r/o hemorrhage in light of thrombocytopenia: negative - started after fall1 week ago possible concussion? migraine? consider Neuro eval if persistent DVT Prophylaxis -SCDs in light of thrombocytopenia DNR/DNI as per discussion with pt Follows with Dr Pineda for routine care Subjective ff up for diverticular abscess seen resting in bed, reports headache 7/10, generalized no blurred vision, nausea, neuro deficits denies abdominal pain, hematochezia denies chest pain, dyspnea has dizziness when moving her head Physical Exam Vital Signs (Past 24 Hours): Last Vital Signs Temp 37.1 C 10/24/18 00:00 Pulse 83 10/24/18 00:00 Resp 20 10/24/18 00:00 BP 139/77 10/24/18 00:00 Pulse Ox 99 10/24/18 00:00 Physical Exam: General- oriented x 3, not in distress, speaks in sentences with no effort or accessory muscle use Eyes- anicteric (+) hematoma left periorbital region Neck- no JVD Lungs- clear BS BL Heart- normal rate, regular rhythm; no murmurs Abdomen- normal bowel sounds, nondistended, soft, nontender (+) hematoma on the left flank, lower back Extremities- (+) hematoma on the upper ext no pretibial edema, no calf tenderness Neuro- alert, oriented x 3; no gross focal neurologic deficits Skin- warm & dry (1) AML (acute myeloblastic leukemia) Leukemia Active/Remission status: without remission Qualified Code(s): C92.00 - Acute myeloblastic leukemia, not having achieved remission
[2018-10-24] MEDS: BRIMONIDINE TARTRATE-P 0.15% 5 ML BTL OPB SCH ×2 (07:54→21:06)
[2018-10-24] MEDS: POTASSIUM CHLORIDE 20 MEQ TABCR PO SCH ×2 (07:54→21:06)
[2018-10-24] MEDS: ACYCLOVIR 400 MG TAB PO SCH ×2 (07:55→21:07)
[2018-10-24] MEDS: MEGESTROL ACETATE 40 MG TAB PO SCH ×4 (07:55→21:06)
[2018-10-24] MEDS: PANTOprazole 40 MG TAB PO SCH (07:55)
[2018-10-24] MEDS: ALLOPURINOL 300 MG TAB PO SCH (07:55)
[2018-10-24] MEDS: METOPROLOL SUCC 25MG EXT REL TAB PO SCH ×2 (07:55→21:06)
[2018-10-24] MEDS: SODIUM CHLORIDE 0.9% 1000ML 1,000 ML IV SCH (07:57)
[2018-10-24 09:47] LABS: Hemoglobin 10.7 g/dL (12.0-16.0); Mean Corpuscular Hgb Conc 34.5 g/dL (32-36); Mean Corpuscular Volume 85.2 fL (80-100); Mean Platelet Volume 9.5 fL (7.4-10.4); Platelet Count 8 K/uL (130-400); Platelet Estimate SIGNIFIC DECREASED (Normal); RBC Morphology Unremarkable; RDW Coefficient of Variation 14.4 % (11.5-14.5); RDW Standard Deviation 44.9 fL (36.4-46.3); Red Blood Count 3.64 M/uL (4.2-5.4); White Blood Count 1.64 K/uL (4.8-10.8)
[2018-10-24 09:49] LABS: ALC (manual) 0.54 K/uL (1.2-3.4); Blast # (manual) 0.86 K/uL (0-0); Blast Cells % (manual) 52.2 %; Lymphocytes # (manual) 0.54 K/uL (1.2-3.4); Monocytes # (manual) 0.01 K/uL (0.11-0.59); Monocytes % (manual) 0.9 %; Neutrophils % (manual) 13.9 %
[2018-10-24] MEDS ORDERED: SODIUM CHLORIDE 0.9% 250 ML IV PRN (10:20)
[2018-10-24] MEDS: levoFLOXacin 500 MG TAB PO SCH (12:22)
--- NOTE | 2018-10-24 16:16 | Hospitalist Progress Note ---
Date of Service October 24, 2018 Assessment & Plan (1) Diverticulitis of large intestine with abscess: Gen Surg, GI, ID consulted Continue Ertapenem IV Surgical intervention not recommended Repeat CT in 2-3 weeks Outpatient colonoscopy 8-12 weeks Clinically stable and denies any pain and/or distention of the abdomen Bowel has been moving (2) Fall: (3) Multiple contusions: Pt with hx fall yesterday and reported 3 falls in past month. Prior to falls reports dizziness. CT HEAD:no acute abnormality CT ABD/PELVIS: Asymmetric enlargement of the left paraspinal musculature of the mid to upper lumbar spine suggestive of a small amount of intramuscular hemorrhage. No active extravasation. Adjacent subcutaneous contusion. 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 Diverticulitis is contributing (4) Pancytopenia: Secondary to AML and treatment for We will monitor CBC (5) AML (acute myeloblastic leukemia): [place] [facility] [place]. [facility] and has PRBC transfusion if Hgb<10. Platelet transfusion if Plt<10 on mondays and if Plt<20 on wednesdays and fridays. Receives premedication of Tylenol 650 mg p.o. and Benadryl 50 mg p.o. prior to platelet transfusion and PRBC transfusion 10/22/18 had 1 unit PRBC and platelet transfusion - per patient, received pRBC to maintain Hg >10, plateletpharesis to maintain Plt > 10k 1 unit PRBC ordered no signs of active bleeding -Continue acyclovir, Levaquin, isavuconazonium -Continue radiated PRBCs and platelet transfusion per heme/oncology guidelines -Platelet count is down today to 8 -We will transfuse 1 unit of platelets today (6) Non-ischemic cardiomyopathy: No acute symptoms (7) Sinus tachycardia: No CP. Current sinus rhythm rate in 80's Hx echo 02/2018: EF 40%, mild diffuse LV hypokinesis -Continue digoxin, metoprolol (8) CKD (chronic kidney disease), stage III: Cr:0.7. Stable -Monitor renal functions, avoid nephrotoxic agents when possible (9) HTN (hypertension): Stable -Continue metoprolol HEADACHE - CT head ordered to r/o hemorrhage in light of thrombocytopenia: negative - started after fall1 week ago possible concussion? migraine? Headache is not persistent and when it comes last for a few seconds We will observe him medically and DVT Prophylaxis -SCDs in light of thrombocytopenia DNR/DNI as per discussion with pt Follows with Dr Pineda for routine care Subjective 10/24 The patient was seen and examined in medical floor She was admitted with the CT scan finding of diverticular abscess with immunosuppression secondary to AML on treatment Remains very weak and lethargic Feels dizzy when ambulance Denies any fever and/or chills No pain Physical Exam Vital Signs (Past 24 Hours): Last Vital Signs Temp 36.9 C 10/24/18 15:36 Pulse 76 10/24/18 15:36 Resp 18 10/24/18 15:36 BP 152/74 H 10/24/18 15:36 Pulse Ox 99 10/24/18 15:36 Physical Exam: No apparent distress at rest.Lying in bed comfortably Constitutional: WD/WN, vitals as above + thin, + frail appearing, well groomed, cooperative and comfortable; no acute distress Eyes: PERRL, conjunctivae normal, anicteric sclerae ENMT: external ear and nose normal, oropharynx normal Neck: trachea midline, no thyromegaly neck nontender Respiratory: normal respiratory effort, + respiratory distress (Minimal) and normal percussion; does not use accessory muscles Auscultation: + diminished lung sounds Cardiovascular: RRR, no murmur, no edema Rate/Rhythm: regular rate and regular rhythm Heart Sounds: normal S1 and normal S2; no gallop, no murmur and no cardiac rub Vessels: normal peripheral pulses; no JVD Gastrointestinal (Abdomen): normal bowel sounds, soft, nontender, no hepatosplenomegaly Inspection/Auscultation: abdomen not distended Percussion/Palpation: abdomen soft; abdomen nontender Musculoskeletal: no cyanosis or clubbing, extremities motor strength 5/5 Spine: thoracic spine normal to inspection and lumbar spine normal to inspection; no cervical spinal tenderness Skin: + rash and + ecchymosis (Has generalized bruising and ecchymosis ) Neurologic: moves all extremities and awake; no meningeal signs Motor/Sensory: no asterixis Psychiatric: A+Ox3, euthymic affect Orientation: cooperative Lymphatic: no cervical or axillary lymphadenopathy no lymphedema and no inguinal lymphadenopathy Results & Data Laboratory Results Short CBC 10/24/18 Range/Units 09:09 WBC 1.64 L (4.8-10.8) K/uL Hgb 10.7 L (12.0-16.0) g/dL Hct 31.0 L (37-47) % Plt Count 8 L* D (130-400) K/uL Medications Administered Current Inpatient Medications Acetaminophen (Tylenol) 650 mg PO Q4H PRN PRN Reason: Pain or Fever Stop: 11/21/18 18:42 Last Admin: 10/24/18 11:40 Dose: 650 mg Documented by: Acyclovir (Zovirax) 400 mg PO BID [facility] Stop: 11/21/18 20:59 Last Admin: 10/24/18 07:55 Dose: 400 mg Documented by: Allopurinol (Zyloprim) 300 mg PO DAILY [facility] Stop: 11/22/18 08:59 Last Admin: 10/24/18 07:55 Dose: 300 mg Documented by: Brimonidine Tartrate (Alphagan-P 0.15%) 1 drops OPB BID [facility] Stop: 11/21/18 20:59 Last Admin: 10/24/18 07:54 Dose: 1 drops Documented by: Digoxin (Lanoxin) 0.125 mg PO DAILY@1600 [facility] Stop: 11/21/18 20:59 Last Admin: 10/23/18 16:31 Dose: 0.125 mg Documented by: Ertapenem (Consult) 1 ea N/A UD PRN PRN Reason: Consult Stop: 11/21/18 20:29 Heparin Sodium (Porcine) (Heparin Sod 100 Unit/Ml Flush) 5 ml FLUSH PRN PRN PRN Reason: Flush Stop: 11/21/18 20:39 Last Admin: 10/23/18 07:54 Dose: 5 ml Documented by: Sodium Chloride (Nss) 250 mls @ 15 mls/hr IV .[id number] PRN PRN Reason: For Transfusion Stop: 11/21/18 20:06 Ertapenem 1,000 mg/ Sodium (Chloride) 60 mls @ 100 mls/hr IV DAILY@1800 [facility]; Protocol Stop: 11/01/18 17:59 Last Infusion: 10/23/18 18:04 Dose: Infused Documented by: Sodium Chloride (Nss 1000ml) 1,000 mls @ 60 mls/hr IV .[id number] [facility] Stop: 11/22/18 15:29 Last Admin: 10/24/18 07:57 Dose: 60 mls/hr Documented by: Sodium Chloride (Nss) 250 mls @ 15 mls/hr IV .[id number] PRN PRN Reason: For Transfusion Stop: 11/23/18 10:19 Levofloxacin (Levaquin) 500 mg PO DAILY@1100 [facility] Stop: 11/22/18 10:59 Last Admin: 10/24/18 12:22 Dose: 500 mg Documented by: Megestrol Acetate (Megace) 40 mg PO QID [facility] Stop: 11/21/18 20:59 Last Admin: 10/24/18 12:22 Dose: 40 mg Documented by: Metoprolol Succinate (Toprol Xl) 25 mg PO BID [facility] Stop: 11/21/18 20:59 Last Admin: 10/24/18 07:55 Dose: 25 mg Documented by: Miscellaneous (Order Awaiting Action) 1 ea N/A QS [facility] Stop: 11/22/18 00:00 Last Admin: 10/24/18 07:49 Dose: Not Given Documented by: Ondansetron HCl (Zofran) 4 mg IV Q6H PRN PRN Reason: Nausea Stop: 11/21/18 20:06 Last Admin: 10/23/18 17:47 Dose: 4 mg Documented by: Pantoprazole Sodium (Protonix) 40 mg PO DAILY [facility] Stop: 11/22/18 08:59 Last Admin: 10/24/18 07:55 Dose: 40 mg Documented by: Potassium Chloride (Klor-Con M20) 20 meq PO BID [facility] Stop: 11/21/18 20:59 Last Admin: 10/24/18 07:54 Dose: 20 meq Documented by: Tramadol HCl (Ultram) 50 mg PO Q6H PRN PRN Reason: Pain Stop: 11/22/18 15:00 Last Admin: 10/24/18 03:46 Dose: 50 mg Documented by: (1) AML (acute myeloblastic leukemia) Leukemia Active/Remission status: without remission Qualified Code(s): C92.00 - Acute myeloblastic leukemia, not having achieved remission
[2018-10-24] MEDS: DIGOXIN 0.125 MG TAB PO SCH (16:40)
[2018-10-24] MEDS: ERTAPENEM SODIUM 1,000 MG in SODIUM CHLORIDE 0.9% 50 ML IV SCH (19:28)
[2018-10-25] MEDS: SODIUM CHLORIDE 0.9% 1000ML 1,000 ML IV SCH ×2 (03:15→19:55)
[2018-10-25] MEDS: TRAMADOL HCL 50 MG TABLET PO PRN (05:38)
[2018-10-25 06:30] LABS: BUN Creatinine Ratio 23.5 (10-20); Calcium 8.9 mg/dl (8.5-10.1); Creatinine Clr Calc Pharmacy 90.4 ml/min; Est GFR (African American) 115.2; Est GFR (Non-African American) 99.4; Potassium 4.1 mmol/L (3.5-5.1)
[2018-10-25 06:56] LABS: Hematocrit (blood only) 31.6 % (37-47); Hemoglobin 10.7 g/dL (12.0-16.0); Mean Corpuscular Hgb Conc 33.9 g/dL (32-36); Mean Corpuscular Volume 84.9 fL (80-100); Mean Platelet Volume 9.5 fL (7.4-10.4); Platelet Count 27 K/uL (130-400); RDW Coefficient of Variation 14.3 % (11.5-14.5); RDW Standard Deviation 44.2 fL (36.4-46.3); Red Blood Count 3.72 M/uL (4.2-5.4); White Blood Count 2.12 K/uL (4.8-10.8)
[2018-10-25 06:57] LABS: RBC Morphology Unremarkable
[2018-10-25 06:59] LABS: ALC (manual) 0.68 K/uL (1.2-3.4); Blast Cells % (manual) 51.7 %; Lymphocytes # (manual) 0.68 K/uL (1.2-3.4); Lymphocytes % (manual) 31.9 %; Monocytes # (manual) 0.02 K/uL (0.11-0.59); Monocytes % (manual) 0.9 %; Neutrophils % (manual) 15.5 %
[2018-10-25] MEDS: ONDANSETRON INJ 2 MG/ML 2 ML VIAL IV PRN (07:52)
[2018-10-25] MEDS: BRIMONIDINE TARTRATE-P 0.15% 5 ML BTL OPB SCH ×2 (08:29→20:02)
[2018-10-25] MEDS: MEGESTROL ACETATE 40 MG TAB PO SCH ×4 (08:29→20:04)
[2018-10-25] MEDS: POTASSIUM CHLORIDE 20 MEQ TABCR PO SCH ×2 (08:29→20:03)
[2018-10-25] MEDS: METOPROLOL SUCC 25MG EXT REL TAB PO SCH ×2 (08:30→20:04)
[2018-10-25] MEDS: ACYCLOVIR 400 MG TAB PO SCH ×2 (08:30→20:04)
[2018-10-25] MEDS: ALLOPURINOL 300 MG TAB PO SCH (08:30)
[2018-10-25] MEDS: PANTOprazole 40 MG TAB PO SCH (08:30)
[2018-10-25] MEDS: levoFLOXacin 500 MG TAB PO SCH (12:48)
--- NOTE | 2018-10-25 14:19 | Hospitalist Progress Note ---
Date of Service October 25, 2018 Assessment & Plan (1) Diverticulitis of large intestine with abscess: Gen Surg, GI, ID consulted Continue Ertapenem IV Surgical intervention not recommended Repeat CT in 2-3 weeks Outpatient colonoscopy 8-12 weeks Clinically stable and denies any pain and/or distention of the abdomen Bowel has been moving Complains to have increased pain in the abdomen today without any fever and/or other associated symptoms Will get a CT scan of the abdomen to evaluate diverticular abscess further Continue current intravenous antibiotic (2) Fall: (3) Multiple contusions: Pt with hx fall yesterday and reported 3 falls in past month. Prior to falls reports dizziness. CT HEAD:no acute abnormality CT ABD/PELVIS: Asymmetric enlargement of the left paraspinal musculature of the mid to upper lumbar spine suggestive of a small amount of intramuscular hemorrhage. No active extravasation. Adjacent subcutaneous contusion. 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 Diverticulitis is contributing Still complains to have back pain at the hematoma site (4) Pancytopenia: Secondary to AML and treatment for We will monitor CBC Discussed with the oncologist in [place]-he wants to give chemotherapy for this lady but due to current infection it will not be possible He is agreeable to transfer the patient to [place] if needed (5) AML (acute myeloblastic leukemia): Pt follows with Dr Horvath oncology [place] [facility] [place] Last chemo 08/2018. [facility] and has PRBC transfusion if Hgb<10. Platelet transfusion if Plt<10 on mondays and if Plt<20 on wednesdays and fridays. Receives premedication of Tylenol 650 mg p.o. and Benadryl 50 mg p.o. prior to platelet transfusion and PRBC transfusion 10/22/18 had 1 unit PRBC and platelet transfusion - per patient, received pRBC to maintain Hg >10, plateletpharesis to maintain Plt > 10k 1 unit PRBC ordered no signs of active bleeding -Continue acyclovir, Levaquin, isavuconazonium -Continue radiated PRBCs and platelet transfusion per heme/oncology guidelines -Platelet count is down today to 8 -We will transfuse 1 unit of platelets today Discussed with oncologist about (6) Non-ischemic cardiomyopathy: No acute symptoms (7) Sinus tachycardia: No CP. Current sinus rhythm rate in 80's Hx echo 02/2018: EF 40%, mild diffuse LV hypokinesis -Continue digoxin, metoprolol (8) CKD (chronic kidney disease), stage III: Cr:0.7. Stable -Monitor renal functions, avoid nephrotoxic agents when possible (9) HTN (hypertension): Stable -Continue metoprolol HEADACHE - CT head ordered to r/o hemorrhage in light of thrombocytopenia: negative - started after fall1 week ago possible concussion? migraine? Headache is not persistent and when it comes last for a few seconds We will observe him medically and Still has headache blood pressure is on upper side of normal DVT Prophylaxis -SCDs in light of thrombocytopenia DNR/DNI as per discussion with pt Follows with Dr Pineda for routine care Subjective 10/24 The patient was seen and examined in medical floor She was admitted with the CT scan finding of diverticular abscess with immunosuppression secondary to AML on treatment Remains very weak and lethargic Feels dizzy when ambulance Denies any fever and/or chills No pain 10/25 She complains to have some pain at the back without radiation and maybe in the abdomen Remains very weak and lethargic and feels dizzy on standing and ambulating Denies any nausea and/or vomiting, any diarrhea or blood in the stool Denies any other significant symptoms Physical Exam Vital Signs (Past 24 Hours): Last Vital Signs Temp 36.9 C 10/25/18 12:17 Pulse 69 10/25/18 12:17 Resp 18 10/25/18 12:17 BP 154/76 H 10/25/18 12:17 Pulse Ox 99 10/25/18 12:17 Physical Exam: No apparent distress at rest but very anxious Constitutional: WD/WN, vitals as above + thin, + frail appearing, well groomed, cooperative and comfortable; no acute distress Eyes: PERRL, conjunctivae normal, anicteric sclerae ENMT: external ear and nose normal, oropharynx normal Neck: trachea midline, no thyromegaly neck nontender Respiratory: normal respiratory effort, + respiratory distress (Minimal) and normal percussion; does not use accessory muscles Auscultation: + diminished lung sounds Cardiovascular: RRR, no murmur, no edema Rate/Rhythm: regular rate and regular rhythm Heart Sounds: normal S1 and normal S2; no gallop, no murmur and no cardiac rub Vessels: normal peripheral pulses; no JVD Gastrointestinal (Abdomen): Inspection/Auscultation: abdomen normal to inspection and normal bowel sounds; abdomen not distended Percussion/Palpation: + abdomen tender (Minimally tender in the lower abdomen) and abdomen soft Musculoskeletal: no cyanosis or clubbing, extremities motor strength 5/5 Spine: thoracic spine normal to inspection and lumbar spine normal to inspection; no cervical spinal tenderness Skin: + rash and + ecchymosis (Has generalized bruising and ecchymosis ) Neurologic: moves all extremities and awake; no meningeal signs Motor/Sensory: no asterixis Psychiatric: A+Ox3, euthymic affect Orientation: cooperative Lymphatic: no cervical or axillary lymphadenopathy no lymphedema and no inguinal lymphadenopathy Results & Data Laboratory Results Short CBC 10/25/18 Range/Units 05:31 WBC 2.12 L (4.8-10.8) K/uL Hgb 10.7 L (12.0-16.0) g/dL Hct 31.6 L (37-47) % Plt Count 27 L* D (130-400) K/uL BMP 10/25/18 05:31 Sodium 138 Potassium 4.1 Chloride 106 Carbon Dioxide 28 BUN 11 Creatinine 0.46 L Glucose 91 Calcium 8.9 Medications Administered Current Inpatient Medications Acetaminophen (Tylenol) 650 mg PO Q4H PRN PRN Reason: Pain or Fever Stop: 11/21/18 18:42 Last Admin: 10/24/18 23:14 Dose: 650 mg Documented by: Acyclovir (Zovirax) 400 mg PO BID [facility] Stop: 11/21/18 20:59 Last Admin: 10/25/18 08:30 Dose: 400 mg Documented by: Allopurinol (Zyloprim) 300 mg PO DAILY [facility] Stop: 11/22/18 08:59 Last Admin: 10/25/18 08:30 Dose: 300 mg Documented by: Brimonidine Tartrate (Alphagan-P 0.15%) 1 drops OPB BID [facility] Stop: 11/21/18 20:59 Last Admin: 10/25/18 08:29 Dose: 1 drops Documented by: Digoxin (Lanoxin) 0.125 mg PO DAILY@1600 [facility] Stop: 11/21/18 20:59 Last Admin: 10/24/18 16:40 Dose: 0.125 mg Documented by: Ertapenem (Consult) 1 ea N/A UD PRN PRN Reason: Consult Stop: 11/21/18 20:29 Heparin Sodium (Porcine) (Heparin Sod 100 Unit/Ml Flush) 5 ml FLUSH PRN PRN PRN Reason: Flush Stop: 11/21/18 20:39 Last Admin: 10/23/18 07:54 Dose: 5 ml Documented by: Sodium Chloride (Nss) 250 mls @ 15 mls/hr IV .[id number] PRN PRN Reason: For Transfusion Stop: 11/21/18 20:06 Ertapenem 1,000 mg/ Sodium (Chloride) 60 mls @ 100 mls/hr IV DAILY@1800 [facility]; Protocol Stop: 11/01/18 17:59 Last Infusion: 10/24/18 20:04 Dose: Infused Documented by: Sodium Chloride (Nss 1000ml) 1,000 mls @ 60 mls/hr IV .[id number] [facility] Stop: 11/22/18 15:29 Last Admin: 10/25/18 03:15 Dose: 60 mls/hr Documented by: Sodium Chloride (Nss) 250 mls @ 15 mls/hr IV .[id number] PRN PRN Reason: For Transfusion Stop: 11/23/18 10:19 Levofloxacin (Levaquin) 500 mg PO DAILY@1100 [facility] Stop: 11/22/18 10:59 Last Admin: 10/25/18 12:48 Dose: 500 mg Documented by: Megestrol Acetate (Megace) 40 mg PO QID [facility] Stop: 11/21/18 20:59 Last Admin: 10/25/18 12:48 Dose: 40 mg Documented by: Metoprolol Succinate (Toprol Xl) 25 mg PO BID [facility] Stop: 11/21/18 20:59 Last Admin: 10/25/18 08:30 Dose: 25 mg Documented by: Miscellaneous (Order Awaiting Action) 1 ea N/A QS [facility] Stop: 11/22/18 00:00 Last Admin: 10/25/18 08:29 Dose: Not Given Documented by: Ondansetron HCl (Zofran) 4 mg IV Q6H PRN PRN Reason: Nausea Stop: 11/21/18 20:06 Last Admin: 10/25/18 07:52 Dose: 4 mg Documented by: Pantoprazole Sodium (Protonix) 40 mg PO DAILY [facility] Stop: 11/22/18 08:59 Last Admin: 10/25/18 08:30 Dose: 40 mg Documented by: Potassium Chloride (Klor-Con M20) 20 meq PO BID [facility] Stop: 11/21/18 20:59 Last Admin: 10/25/18 08:29 Dose: 20 meq Documented by: Tramadol HCl (Ultram) 50 mg PO Q6H PRN PRN Reason: Pain Stop: 11/22/18 15:00 Last Admin: 10/25/18 05:38 Dose: 50 mg Documented by: (1) AML (acute myeloblastic leukemia) Leukemia Active/Remission status: without remission Qualified Code(s): C92.00 - Acute myeloblastic leukemia, not having achieved remission
[2018-10-25] MEDS: ACETAMINOPHEN 325 MG TAB PO PRN (15:44)
[2018-10-25] MEDS: DIGOXIN 0.125 MG TAB PO SCH (15:45)
[2018-10-25] MEDS: ERTAPENEM SODIUM 1,000 MG in SODIUM CHLORIDE 0.9% 50 ML IV SCH (19:56)
[2018-10-26] MEDS: ACETAMINOPHEN 325 MG TAB PO PRN (00:06)
[2018-10-26 06:16] LABS: Hematocrit (blood only) 31.7 % (37-47); Mean Corpuscular Hgb Conc 34.7 g/dL (32-36); Mean Corpuscular Volume 85.2 fL (80-100); Mean Platelet Volume 10.3 fL (7.4-10.4); Platelet Count 15 K/uL (130-400); RDW Coefficient of Variation 14.1 % (11.5-14.5); RDW Standard Deviation 44.1 fL (36.4-46.3); Red Blood Count 3.72 M/uL (4.2-5.4); White Blood Count 2.19 K/uL (4.8-10.8)
[2018-10-26 06:20] LABS: Bilirubin Direct 0.2 mg/dl (0-0.2); Calcium 8.8 mg/dl (8.5-10.1); Creatinine Clr Calc Pharmacy 87.5 ml/min; Est GFR (African American) 114.4; Est GFR (Non-African American) 98.7; Magnesium 1.4 mg/dl (1.8-2.4); Potassium 4.2 mmol/L (3.5-5.1)
[2018-10-26 06:22] LABS: Bilirubin,Total 0.5 mg/dl (0.2-1); Phosphorus 2.6 mg/dl (2.5-4.9); Total Protein 6.6 gm/dl (6.4-8.2)
[2018-10-26 07:06] LABS: ALC (manual) 0.99 K/uL (1.2-3.4); Blast # (manual) 0.98 K/uL (0-0); Blast Cells % (manual) 44.9 %; Lymphocytes # (manual) 0.99 K/uL (1.2-3.4); Monocytes # (manual) 0.02 K/uL (0.11-0.59); Monocytes % (manual) 0.8 %; Neutrophils % (manual) 8.5 %; Promyelocytes # (manual) 0.02 K/uL (0-0); Promyelocytes % (manual) 0.8 %
[2018-10-26] MEDS: TRAMADOL HCL 50 MG TABLET PO PRN ×2 (08:39→19:57)
[2018-10-26] MEDS: MEGESTROL ACETATE 40 MG TAB PO SCH ×4 (08:39→20:01)
[2018-10-26] MEDS: BRIMONIDINE TARTRATE-P 0.15% 5 ML BTL OPB SCH ×2 (08:39→19:59)
[2018-10-26] MEDS: METOPROLOL SUCC 25MG EXT REL TAB PO SCH ×2 (08:40→20:02)
[2018-10-26] MEDS: ACYCLOVIR 400 MG TAB PO SCH ×2 (08:40→20:02)
[2018-10-26] MEDS: PANTOprazole 40 MG TAB PO SCH (08:40)
[2018-10-26] MEDS: ALLOPURINOL 300 MG TAB PO SCH (08:40)
[2018-10-26] MEDS: POTASSIUM CHLORIDE 20 MEQ TABCR PO SCH ×2 (08:40→20:00)
--- NOTE | 2018-10-26 08:42 | CT Scan Report ---
CT SCAN OF THE ABDOMEN AND PELVIS WITHOUT IV CONTRAST CLINICAL HISTORY: Follow-up diverticular abscess. COMPARISON STUDY: Abdominal CT dated 10/22/2018. PET/CT dated 10/12/2011. TECHNIQUE: CT scan of the abdomen and pelvis is performed from the lung bases to the proximal femora. Images are reviewed in the axial, sagittal, and coronal planes. IV contrast was not administered for this examination as per the referring clinician. Note that the examination was performed in signific antly suboptimal fashion without oral and IV contrast. A dose lowering technique was utilized adherin g to the principles of ALARA. CT DOSE: 471.69 mGycm FINDINGS: Lung bases: The tip of a central venous catheter terminates at the cavoatrial junction. The heart is normal in size and without pericardial effusion. Emphysematous change is suspected. No airspace conso lidation or pleural effusion is identified. Liver: The unenhanced liver is normal in size, contour, and attenuation. There is no intrahepatic william iary ductal dilatation. There are numerous hepatic cysts which measure up to 4.2 cm. Additional subce ntimeter hepatic hypodensities also likely represent cysts but are too small for definitive character ization. Gallbladder: Unremarkable. Spleen: Normal in size and attenuation, measuring 9.4 cm in length. Pancreas: The unenhanced pancreas is moderately atrophic and grossly unremarkable. Adrenal glands: Unremarkable. Kidneys: The unenhanced kidneys demonstrate cortical atrophy and are without hydronephrosis. There ar e no renal calculi identified. There is no evidence of contour deforming renal mass lesion. Abdominal vasculature: The abdominal aorta is normal in course and caliber noting mild atheroscleroti c calcification. Bowel: There is mild sigmoid diverticulosis. Wall thickening and pericolic inflammation around the si gmoid colon persistent is consistent with acute diverticulitis. No organized fluid collection is seen on this unenhanced examination. Moderate colonic fecal retention is observed. No bowel obstruction i s seen. A small bowel lipoma is identified in the left lower quadrant on image #214 and measures 1.5 cm. The appendix is normal as imaged. Peritoneum: There is no intraperitoneal free air or abdominal ascites. Lymphadenopathy: A calcified mesenteric node is seen on image #191. Mesenteric thickening is seen on images #232 and #249, and these findings likely represent treated lymphoma when correlated with prior examinations. Prominent retroperitoneal nodes measure up to 6 mm in short axis. Pelvic viscera: There is mild bladder wall thickening and pericystic inflammatory change. The uterus is surgically absent. No adnexal lesion is seen. Skeletal structures: The skeletal structures are osteopenic. There is moderate lumbosacral spondylosi s as well as mild scoliosis. Advanced arthritic change is seen in the hips. No lytic or blastic lesio ns are seen. IMPRESSION: 1. Significantly suboptimal examination without oral and IV contrast. 2. Again seen are findings of acute diverticulitis involving the sigmoid colon. This is similar in ap pearance to the 10/22/2018 examination. 3. No intraperitoneal free air organized fluid collection is identified on this unenhanced examinatio n. The tiny collection seen on the prior study cannot be assessed without IV contrast. 4. Moderate colonic fecal retention. 5. Foci of stranding/thickening the mesentery as well as prominent retroperitoneal lymph nodes likely correspond to treated lymphoma when correlated with prior examinations. 6. The bladder wall appears thickened and there is pericystic stranding. This may be related to adjac ent diverticulitis. Correlation with urinalysis will be required. 7. Additional findings as above. Electronically signed by: Jose Johnson M.D. 10/26/2018 8:40 AM
[2018-10-26] MEDS ORDERED: MAGNESIUM SULFATE / D5W 1 GM/100 ML BAG IV ONE (09:30)
[2018-10-26] MEDS: SODIUM CHLORIDE 0.9% 1000ML 1,000 ML IV SCH (12:06)
[2018-10-26] MEDS: levoFLOXacin 500 MG TAB PO SCH (12:06)
--- NOTE | 2018-10-26 14:49 | Hospitalist Progress Note ---
Date of Service October 26, 2018 Assessment & Plan (1) Diverticulitis of large intestine with abscess: Gen Surg, GI, ID consulted Continue Ertapenem IV Surgical intervention not recommended Repeat CT in 2-3 weeks Outpatient colonoscopy 8-12 weeks Clinically stable and denies any pain and/or distention of the abdomen Bowel has been moving Complains to have increased pain in the abdomen today without any fever and/or other associated symptoms Will get a CT scan of the abdomen to evaluate diverticular abscess further Continue current intravenous antibiotic Repeat CT of the abdomen and pelvis showed diverticulitis without any abscess Patient does not have any symptoms We will continue current antibiotic (2) Fall: (3) Multiple contusions: Pt with hx fall yesterday and reported 3 falls in past month. Prior to falls reports dizziness. CT HEAD:no acute abnormality CT ABD/PELVIS: Asymmetric enlargement of the left paraspinal musculature of the mid to upper lumbar spine suggestive of a small amount of intramuscular hemorrhage. No active extravasation. Adjacent subcutaneous contusion. 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 Diverticulitis is contributing Still complains to have back pain at the hematoma site No significant pain from the contusion site (4) Pancytopenia: Secondary to AML and treatment for We will monitor CBC Discussed with the oncologist in [place]-he wants to give chemotherapy for this lady but due to current infection it will not be possible He is agreeable to transfer the patient to [place] if needed (5) AML (acute myeloblastic leukemia): Pt follows with Dr Horvath oncology at [facility] [place] Last chemo 08/2018. [facility] and has PRBC transfusion if Hgb<10. Platelet transfusion if Plt<10 on mondays and if Plt<20 on wednesdays and fridays. Receives premedication of Tylenol 650 mg p.o. and Benadryl 50 mg p.o. prior to platelet transfusion and PRBC transfusion 10/22/18 had 1 unit PRBC and platelet transfusion - per patient, received pRBC to maintain Hg >10, plateletpharesis to maintain Plt > 10k 1 unit PRBC ordered no signs of active bleeding -Continue acyclovir, Levaquin, isavuconazonium -Continue radiated PRBCs and platelet transfusion per heme/oncology guidelines -Platelet count is down today to 8 -We will transfuse 1 unit of platelets today -Discussed with the oncologist and plan to keep her in the hospital for the next few days to see if any improvement -The patient herself talked to the oncologist as well (6) Non-ischemic cardiomyopathy: No acute symptoms (7) Sinus tachycardia: No CP. Current sinus rhythm rate in 80's Hx echo 02/2018: EF 40%, mild diffuse LV hypokinesis -Continue digoxin, metoprolol (8) CKD (chronic kidney disease), stage III: Cr:0.7. Stable -Monitor renal functions, avoid nephrotoxic agents when possible (9) HTN (hypertension): Stable -Continue metoprolol HEADACHE - CT head ordered to r/o hemorrhage in light of thrombocytopenia: negative - started after fall1 week ago possible concussion? migraine? Headache is not persistent and when it comes last for a few seconds We will observe him medically and Still has headache blood pressure is on upper side of normal DVT Prophylaxis -SCDs in light of thrombocytopenia DNR/DNI as per discussion with pt Follows with Dr Pineda for routine care Subjective / The patient was seen and examined in medical floor She was admitted with the CT scan finding of diverticular abscess with immunosuppression secondary to AML on treatment Remains very weak and lethargic Feels dizzy when ambulance Denies any fever and/or chills No pain / She complains to have some pain at the back without radiation and maybe in the abdomen Remains very weak and lethargic and feels dizzy on standing and ambulating Denies any nausea and/or vomiting, any diarrhea or blood in the stool Denies any other significant symptoms 10/26 The patient was seen and examined in medical She complains to extreme weakness and tiredness that she could hardly move around Discussed with the oncologist regarding Condition is secondary to worsening AML and treatment cannot be given until the physical condition improves Discussed with the patient We will continue current antibiotic for the next 2-3 days and reevaluate Physical Exam Vital Signs (Past 24 Hours): Last Vital Signs Temp 37.0 C 10/26/18 11:44 Pulse 70 10/26/18 11:44 Resp 16 10/26/18 11:44 BP 138/75 10/26/18 11:44 Pulse Ox 98 10/26/18 11:44 Physical Exam: Very weak and lethargic at rest without any acute distress Constitutional: WD/WN, vitals as above + thin, + frail appearing, well groomed, cooperative and comfortable; no acute distress Eyes: PERRL, conjunctivae normal, anicteric sclerae ENMT: external ear and nose normal, oropharynx normal Neck: trachea midline, no thyromegaly neck nontender Respiratory: normal respiratory effort, + respiratory distress (Minimal) and normal percussion; does not use accessory muscles Auscultation: + diminished lung sounds Cardiovascular: RRR, no murmur, no edema Rate/Rhythm: regular rate and regular rhythm Heart Sounds: normal S1 and normal S2; no gallop, no murmur and no cardiac rub Vessels: normal peripheral pulses; no JVD Gastrointestinal (Abdomen): normal bowel sounds, soft, nontender, no hepatosplenomegaly Inspection/Auscultation: abdomen normal to inspection and normal bowel sounds; abdomen not distended Percussion/Palpation: + abdomen tender (Minimally tender in the lower abdomen) and abdomen soft Musculoskeletal: no cyanosis or clubbing, extremities motor strength 5/5 Spine: thoracic spine normal to inspection and lumbar spine normal to inspection; no cervical spinal tenderness Skin: + rash and + ecchymosis (Has generalized bruising and ecchymosis ) Neurologic: moves all extremities and awake; no meningeal signs Motor/Sensory: no asterixis Psychiatric: A+Ox3, euthymic affect Orientation: cooperative Lymphatic: no cervical or axillary lymphadenopathy no lymphedema and no inguinal lymphadenopathy Results & Data Laboratory Results Short CBC 10/26/18 Range/Units 05:40 WBC 2.19 L (4.8-10.8) K/uL Hgb 11.0 L (12.0-16.0) g/dL Hct 31.7 L (37-47) % Plt Count 15 L* (130-400) K/uL BMP 10/26/18 05:40 Sodium 137 Potassium 4.2 Chloride 104 Carbon Dioxide 28 BUN 11 Creatinine 0.47 L Glucose 100 H Calcium 8.8 Liver Function 10/26/18 Range/Units 05:40 Total Bilirubin 0.5 (0.2-1) mg/dl Direct Bilirubin 0.2 (0-0.2) mg/dl AST 11 L (15-37) U/L ALT 15 (12-78) U/L Alkaline Phosphatase 164 H (45-117) U/L Albumin 3.0 L (3.4-5.0) gm/dl Medications Administered Current Inpatient Medications Acetaminophen (Tylenol) 650 mg PO Q4H PRN PRN Reason: Pain or Fever Stop: 11/21/18 18:42 Last Admin: 10/26/18 00:06 Dose: 650 mg Documented by: Acyclovir (Zovirax) 400 mg PO BID [facility] Stop: 11/21/18 20:59 Last Admin: 10/26/18 08:40 Dose: 400 mg Documented by: Allopurinol (Zyloprim) 300 mg PO DAILY [facility] Stop: 11/22/18 08:59 Last Admin: 10/26/18 08:40 Dose: 300 mg Documented by: Brimonidine Tartrate (Alphagan-P 0.15%) 1 drops OPB BID [facility] Stop: 11/21/18 20:59 Last Admin: 10/26/18 08:39 Dose: 1 drops Documented by: Digoxin (Lanoxin) 0.125 mg PO DAILY@1600 [facility] Stop: 11/21/18 20:59 Last Admin: 10/25/18 15:45 Dose: 0.125 mg Documented by: Ertapenem (Consult) 1 ea N/A UD PRN PRN Reason: Consult Stop: 11/21/18 20:29 Heparin Sodium (Porcine) (Heparin Sod 100 Unit/Ml Flush) 5 ml FLUSH PRN PRN PRN Reason: Flush Stop: 11/21/18 20:39 Last Admin: 10/23/18 07:54 Dose: 5 ml Documented by: Sodium Chloride (Nss) 250 mls @ 15 mls/hr IV .[id number] PRN PRN Reason: For Transfusion Stop: 11/21/18 20:06 Ertapenem 1,000 mg/ Sodium (Chloride) 60 mls @ 100 mls/hr IV DAILY@1800 [facility]; Protocol Stop: 11/01/18 17:59 Last Infusion: 10/25/18 20:38 Dose: Infused Documented by: Sodium Chloride (Nss 1000ml) 1,000 mls @ 60 mls/hr IV .[id number] [facility] Stop: 11/22/18 15:29 Last Admin: 10/26/18 12:06 Dose: 60 mls/hr Documented by: Sodium Chloride (Nss) 250 mls @ 15 mls/hr IV .[id number] PRN PRN Reason: For Transfusion Stop: 11/23/18 10:19 Levofloxacin (Levaquin) 500 mg PO DAILY@1100 [facility] Stop: 11/22/18 10:59 Last Admin: 10/26/18 12:06 Dose: 500 mg Documented by: Megestrol Acetate (Megace) 40 mg PO QID [facility] Stop: 11/21/18 20:59 Last Admin: 10/26/18 12:06 Dose: 40 mg Documented by: Metoprolol Succinate (Toprol Xl) 25 mg PO BID [facility] Stop: 11/21/18 20:59 Last Admin: 10/26/18 08:40 Dose: 25 mg Documented by: Miscellaneous (Order Awaiting Action) 1 ea N/A QS [facility] Stop: 11/22/18 00:00 Last Admin: 10/26/18 08:39 Dose: Not Given Documented by: Ondansetron HCl (Zofran) 4 mg IV Q6H PRN PRN Reason: Nausea Stop: 11/21/18 20:06 Last Admin: 10/25/18 07:52 Dose: 4 mg Documented by: Pantoprazole Sodium (Protonix) 40 mg PO DAILY [facility] Stop: 11/22/18 08:59 Last Admin: 10/26/18 08:40 Dose: 40 mg Documented by: Potassium Chloride (Klor-Con M20) 20 meq PO BID [facility] Stop: 11/21/18 20:59 Last Admin: 10/26/18 08:40 Dose: 20 meq Documented by: Tramadol HCl (Ultram) 50 mg PO Q6H PRN PRN Reason: Pain Stop: 11/22/18 15:00 Last Admin: 10/26/18 08:39 Dose: 50 mg Documented by: Voriconazole (Vfend) 200 mg PO BID [facility] Stop: 11/25/18 20:59 (1) AML (acute myeloblastic leukemia) Leukemia Active/Remission status: without remission Qualified Code(s): C92.00 - Acute myeloblastic leukemia, not having achieved remission
--- NOTE | 2018-10-26 15:22 | Infectious Disease Progress Nt ---
Date of Service October 26, 2018 Assessment & Plan (1) Diverticulitis of large intestine with abscess: 73-year-old female with AML with sigmoid diverticulitis with small abscess formation. Patient to be continued on IV ertapenem. Will follow. Subjective Patient seen in follow-up for diverticulitis. Has somewhat more abdominal pain, otherwise without major change in symptoms. No fever. Follow-up CT scan shows no significant worsening. Review of Systems All systems reviewed & are unremarkable except as noted in HPI & below Physical Exam Vital Signs (Past 24 Hours): Last Vital Signs Temp 36.8 C 10/26/18 14:57 Pulse 79 10/26/18 14:57 Resp 16 10/26/18 14:57 BP 132/74 10/26/18 14:57 Pulse Ox 98 10/26/18 14:57 Constitutional: WD/WN, vitals as above comfortable; no acute distress Eyes: PERRL, conjunctivae normal, anicteric sclerae ENMT: external ear and nose normal, oropharynx normal Neck: trachea midline, no thyromegaly neck nontender Respiratory: normal respiratory effort, lungs clear to auscultation normal percussion; no respiratory distress Cardiovascular: Rate/Rhythm: regular rate and regular rhythm Heart Sounds: normal S1 and normal S2; no gallop, no murmur and no cardiac rub Gastrointestinal (Abdomen): Inspection/Auscultation: abdomen normal to inspection and normal bowel sounds Percussion/Palpation: + abdomen tender (Minimal left lower quadrant) and abdomen soft; no hepatosplenomegaly and no abdominal mass Musculoskeletal: no cyanosis or clubbing, extremities motor strength 5/5 No spinal tenderness, no joint swelling or erythema Skin: no rashes, warm and dry no lesions Neurologic: moves all extremities and awake; no focal motor deficits Motor/Sensory: no sensory deficit Psychiatric: A+Ox3, euthymic affect Lymphatic: no cervical or axillary lymphadenopathy no inguinal lymphadenopathy Results & Data Laboratory Results Short CBC 10/26/18 Range/Units 05:40 WBC 2.19 L (4.8-10.8) K/uL Hgb 11.0 L (12.0-16.0) g/dL Hct 31.7 L (37-47) % Plt Count 15 L* (130-400) K/uL BMP 10/26/18 05:40 Sodium 137 Potassium 4.2 Chloride 104 Carbon Dioxide 28 BUN 11 Creatinine 0.47 L Glucose 100 H Calcium 8.8 Liver Function 10/26/18 Range/Units 05:40 Total Bilirubin 0.5 (0.2-1) mg/dl Direct Bilirubin 0.2 (0-0.2) mg/dl AST 11 L (15-37) U/L ALT 15 (12-78) U/L Alkaline Phosphatase 164 H (45-117) U/L Albumin 3.0 L (3.4-5.0) gm/dl Diagnostic Findings cc: ~ CT SCAN OF THE ABDOMEN AND PELVIS WITHOUT IV CONTRAST CLINICAL HISTORY: Follow-up diverticular abscess. COMPARISON STUDY: Abdominal CT dated 10/22/2018. PET/CT dated 10/12/2011. TECHNIQUE: CT scan of the abdomen and pelvis is performed from the lung bases to the proximal femora. Images are reviewed in the axial, sagittal, and coronal planes. IV contrast was not administered for this examination as per the referring clinician. Note that the examination was performed in significantly suboptimal fashion without oral and IV contrast. A dose lowering technique was utilized adhering to the principles of ALARA. CT DOSE: 471.69 mGycm FINDINGS: Lung bases: The tip of a central venous catheter terminates at the cavoatrial junction. The heart is normal in size and without pericardial effusion. Emphysematous change is suspected. No airspace consolidation or pleural effusion is identified. Liver: The unenhanced liver is normal in size, contour, and attenuation. There is no intrahepatic biliary ductal dilatation. There are numerous hepatic cysts which measure up to 4.2 cm. Additional subcentimeter hepatic hypodensities also likely represent cysts but are too small for definitive characterization. Gallbladder: Unremarkable. Spleen: Normal in size and attenuation, measuring 9.4 cm in length. Pancreas: The unenhanced pancreas is moderately atrophic and grossly unremarkable. Adrenal glands: Unremarkable. Kidneys: The unenhanced kidneys demonstrate cortical atrophy and are without hydronephrosis. There are no renal calculi identified. There is no evidence of contour deforming renal mass lesion. Abdominal vasculature: The abdominal aorta is normal in course and caliber noting mild atherosclerotic calcification. Bowel: There is mild sigmoid diverticulosis. Wall thickening and pericolic inflammation around the sigmoid colon persistent is consistent with acute diverticulitis. No organized fluid collection is seen on this unenhanced examination. Moderate colonic fecal retention is observed. No bowel obstruction is seen. A small bowel lipoma is identified in the left lower quadrant on image #214 and measures 1.5 cm. The appendix is normal as imaged. Peritoneum: There is no intraperitoneal free air or abdominal ascites. Lymphadenopathy: A calcified mesenteric node is seen on image #191. Mesenteric thickening is seen on images #232 and #249, and these findings likely represent treated lymphoma when correlated with prior examinations. Prominent retroperitoneal nodes measure up to 6 mm in short axis. Pelvic viscera: There is mild bladder wall thickening and pericystic inflammatory change. The uterus is surgically absent. No adnexal lesion is seen. Skeletal structures: The skeletal structures are osteopenic. There is moderate lumbosacral spondylosis as well as mild scoliosis. Advanced arthritic change is seen in the hips. No lytic or blastic lesions are seen. IMPRESSION: 1. Significantly suboptimal examination without oral and IV contrast. 2. Again seen are findings of acute diverticulitis involving the sigmoid colon. This is similar in appearance to the 10/22/2018 examination. 3. No intraperitoneal free air organized fluid collection is identified on this unenhanced examination. The tiny collection seen on the prior study cannot be assessed without IV contrast. 4. Moderate colonic fecal retention. 5. Foci of stranding/thickening the mesentery as well as prominent retroperitoneal lymph nodes likely correspond to treated lymphoma when correlated with prior examinations. 6. The bladder wall appears thickened and there is pericystic stranding. This may be related to adjacent diverticulitis. Correlation with urinalysis will be required. 7. Additional findings as above. Electronically signed by: Jose Johnson M.D. 10/26/2018 8:40 AM Dictated: 10/26/18 0829 Transcribed: 10/26/18 0829
[2018-10-26] MEDS: DIGOXIN 0.125 MG TAB PO SCH (16:42)
[2018-10-26] MEDS: ERTAPENEM SODIUM 1,000 MG in SODIUM CHLORIDE 0.9% 50 ML IV SCH (17:53)
[2018-10-26] MEDS: VORICONAZOLE 200 MG TABLET PO SCH (20:02)
[2018-10-27 06:15] LABS: BUN Creatinine Ratio 24.8 (10-20); Calcium 8.7 mg/dl (8.5-10.1); Creatinine Clr Calc Pharmacy 102.8 ml/min; Est GFR (African American) 120.6; Est GFR (Non-African American) 104.1
[2018-10-27 06:41] LABS: Hematocrit (blood only) 30.7 % (37-47); Hemoglobin 10.7 g/dL (12.0-16.0); Mean Corpuscular Hgb Conc 34.9 g/dL (32-36); Mean Corpuscular Volume 85.5 fL (80-100); Mean Platelet Volume 9.8 fL (7.4-10.4); Platelet Count 7 K/uL (130-400); RDW Coefficient of Variation 14.2 % (11.5-14.5); Red Blood Count 3.59 M/uL (4.2-5.4); White Blood Count 1.78 K/uL (4.8-10.8)
[2018-10-27] MEDS: SODIUM CHLORIDE 0.9% 1000ML 1,000 ML IV SCH ×2 (06:47→20:35)
[2018-10-27 06:49] LABS: RBC Morphology Unremarkable
[2018-10-27 06:59] LABS: ALC (manual) 0.67 K/uL (1.2-3.4); Blast # (manual) 1.08 K/uL (0-0); Blast Cells % (manual) 60.9 %; Lymphocytes # (manual) 0.67 K/uL (1.2-3.4); Lymphocytes % (manual) 37.5 %; Monocytes # (manual) 0.01 K/uL (0.11-0.59); Monocytes % (manual) 0.8 %; Neutrophils % (manual) 0.8 %
[2018-10-27] MEDS ORDERED: SODIUM CHLORIDE 0.9% 250 ML IV PRN (08:10)
[2018-10-27] MEDS: MEGESTROL ACETATE 40 MG TAB PO SCH ×4 (08:57→20:34)
[2018-10-27] MEDS: ALLOPURINOL 300 MG TAB PO SCH (08:57)
[2018-10-27] MEDS: ACYCLOVIR 400 MG TAB PO SCH ×2 (08:57→20:34)
[2018-10-27] MEDS: POTASSIUM CHLORIDE 20 MEQ TABCR PO SCH ×2 (08:58→20:34)
[2018-10-27] MEDS: BRIMONIDINE TARTRATE-P 0.15% 5 ML BTL OPB SCH ×2 (08:58→20:33)
[2018-10-27] MEDS: METOPROLOL SUCC 25MG EXT REL TAB PO SCH ×2 (08:58→20:35)
[2018-10-27] MEDS: PANTOprazole 40 MG TAB PO SCH (08:58)
[2018-10-27] MEDS: VORICONAZOLE 200 MG TABLET PO SCH ×2 (08:58→20:35)
[2018-10-27] MEDS: ACETAMINOPHEN 325 MG TAB PO PRN ×2 (09:49→23:28)
--- NOTE | 2018-10-27 11:59 | Hospitalist Progress Note ---
Date of Service October 27, 2018 Assessment & Plan (1) Diverticulitis of large intestine with abscess: Gen Surg, GI, ID consulted Continue Ertapenem IV Surgical intervention not recommended Repeat CT in 2-3 weeks Outpatient colonoscopy 8-12 weeks Clinically stable and denies any pain and/or distention of the abdomen Bowel has been moving Complains to have increased pain in the abdomen today without any fever and/or other associated symptoms Will get a CT scan of the abdomen to evaluate diverticular abscess further Continue current intravenous antibiotic Repeat CT of the abdomen and pelvis showed diverticulitis without any abscess Patient does not have any symptoms We will continue current antibiotic Doubt any infective process is going on at this time Her diverticulitis seems to be completely asymptomatic without any significant signs (2) Fall: (3) Multiple contusions: Pt with hx fall yesterday and reported 3 falls in past month. Prior to falls reports dizziness. CT HEAD:no acute abnormality CT ABD/PELVIS: Asymmetric enlargement of the left paraspinal musculature of the mid to upper lumbar spine suggestive of a small amount of intramuscular hemorrhage. No active extravasation. Adjacent subcutaneous contusion. 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 [place]. [facility] and has PRBC transfusion if Hgb<10. Platelet transfusion if Plt<10 on mondays and if Plt<20 on wednesdays and fridays. Receives premedication of Tylenol 650 mg p.o. and Benadryl 50 mg p.o. prior to platelet transfusion and PRBC transfusion 10/22/18 had 1 unit PRBC and platelet transfusion - per patient, received pRBC to maintain Hg >10, plateletpharesis to maintain Plt > 10k 1 unit PRBC ordered no signs of active bleeding -Continue acyclovir, Levaquin, isavuconazonium -Continue radiated PRBCs and platelet transfusion per heme/oncology guidelines -Platelet count is down today to 8 -We will transfuse 1 unit of platelets today -Discussed with the oncologist and plan to keep her in the hospital for the next few days to see if any improvement -The patient herself talked to the oncologist as well -We will discuss with oncologist tomorrow for further management plan (6) Non-ischemic cardiomyopathy: No acute symptoms (7) Sinus tachycardia: No CP. Current sinus rhythm rate in 80's Hx echo 02/2018: EF 40%, mild diffuse LV hypokinesis -Continue digoxin, metoprolol -Get an EKG to make sure there is no QT prolongation (8) CKD (chronic kidney disease), stage III: Cr:0.7. Stable -Monitor renal functions, avoid nephrotoxic agents when possible (9) HTN (hypertension): Stable -Continue metoprolol HEADACHE - CT head ordered to r/o hemorrhage in light of thrombocytopenia: negative - started after fall1 week ago possible concussion? migraine? Headache is not persistent and when it comes last for a few seconds We will observe him medically and Still has headache blood pressure is on upper side of normal DVT Prophylaxis -SCDs in light of thrombocytopenia DNR/DNI as per discussion with pt Follows with Dr Pineda for routine care Subjective 10/24 The patient was seen and examined in medical floor She was admitted with the CT scan finding of diverticular abscess with immunosuppression secondary to AML on treatment Remains very weak and lethargic Feels dizzy when ambulance Denies any fever and/or chills No pain / She complains to have some pain at the back without radiation and maybe in the abdomen Remains very weak and lethargic and feels dizzy on standing and ambulating Denies any nausea and/or vomiting, any diarrhea or blood in the stool Denies any other significant symptoms 10/26 The patient was seen and examined in medical She complains to extreme weakness and tiredness that she could hardly move around Discussed with the oncologist regarding Condition is secondary to worsening AML and treatment cannot be given until the physical condition improves Discussed with the patient We will continue current antibiotic for the next 2-3 days and reevaluate 10/27 The patient was seen and examined the medical floor She remains extremely lethargic, cannot even sit up on the bed for a long time Denies any other symptoms, no abdominal pain nausea and/or vomiting, no shortness of breath Physical Exam Vital Signs (Past 24 Hours): Last Vital Signs Temp 36.6 C 10/27/18 10:05 Pulse 80 10/27/18 10:05 Resp 16 10/27/18 10:05 BP 154/73 H 10/27/18 10:05 Pulse Ox 99 10/27/18 10:05 Physical Exam: Pale looking with multiple bruising secondary to fall and spontaneous bruise due to low platelet Constitutional: WD/WN, vitals as above + thin, + frail appearing, well groomed, cooperative and comfortable; no acute distress Eyes: PERRL, conjunctivae normal, anicteric sclerae ENMT: external ear and nose normal, oropharynx normal Neck: trachea midline, no thyromegaly neck nontender Respiratory: normal respiratory effort, + respiratory distress (Minimal) and normal percussion; does not use accessory muscles Auscultation: + diminished lung sounds Cardiovascular: RRR, no murmur, no edema Rate/Rhythm: regular rate and regular rhythm Heart Sounds: normal S1 and normal S2; no gallop, no murmur and no cardiac rub Vessels: normal peripheral pulses; no JVD Gastrointestinal (Abdomen): normal bowel sounds, soft, nontender, no hepatosplenomegaly Inspection/Auscultation: abdomen normal to inspection and normal bowel sounds; abdomen not distended Percussion/Palpation: abdomen soft; abdomen nontender Musculoskeletal: no cyanosis or clubbing, extremities motor strength 5/5 Spine: thoracic spine normal to inspection and lumbar spine normal to inspection; no cervical spinal tenderness Skin: + rash and + ecchymosis (Has generalized bruising and ecchymosis ) Neurologic: moves all extremities and awake; no meningeal signs Motor/Sensory: no asterixis Psychiatric: A+Ox3, euthymic affect Orientation: cooperative Lymphatic: no cervical or axillary lymphadenopathy no lymphedema and no inguinal lymphadenopathy Results & Data Laboratory Results Short CBC 10/27/18 Range/Units 05:47 WBC 1.78 L (4.8-10.8) K/uL Hgb 10.7 L (12.0-16.0) g/dL Hct 30.7 L (37-47) % Plt Count 7 L* D (130-400) K/uL BMP 10/27/18 05:47 Sodium 136 Potassium 4.0 Chloride 102 Carbon Dioxide 28 BUN 10 Creatinine 0.40 L Glucose 98 Calcium 8.7 Medications Administered Current Inpatient Medications Acetaminophen (Tylenol) 650 mg PO Q4H PRN PRN Reason: Pain or Fever Stop: 11/21/18 18:42 Last Admin: 10/27/18 09:49 Dose: 650 mg Documented by: Acyclovir (Zovirax) 400 mg PO BID [facility] Stop: 11/21/18 20:59 Last Admin: 10/27/18 08:57 Dose: 400 mg Documented by: Allopurinol (Zyloprim) 300 mg PO DAILY [facility] Stop: 11/22/18 08:59 Last Admin: 10/27/18 08:57 Dose: 300 mg Documented by: Brimonidine Tartrate (Alphagan-P 0.15%) 1 drops OPB BID [facility] Stop: 11/21/18 20:59 Last Admin: 10/27/18 08:58 Dose: 1 drops Documented by: Digoxin (Lanoxin) 0.125 mg PO DAILY@1600 [facility] Stop: 11/21/18 20:59 Last Admin: 10/26/18 16:42 Dose: 0.125 mg Documented by: Ertapenem (Consult) 1 ea N/A UD PRN PRN Reason: Consult Stop: 11/21/18 20:29 Heparin Sodium (Porcine) (Heparin Sod 100 Unit/Ml Flush) 5 ml FLUSH PRN PRN PRN Reason: Flush Stop: 11/21/18 20:39 Last Admin: 10/23/18 07:54 Dose: 5 ml Documented by: Sodium Chloride (Nss) 250 mls @ 15 mls/hr IV .[id number] PRN PRN Reason: For Transfusion Stop: 11/21/18 20:06 Ertapenem 1,000 mg/ Sodium (Chloride) 60 mls @ 100 mls/hr IV DAILY@1800 [facility]; Protocol Stop: 11/01/18 17:59 Last Infusion: 10/26/18 18:46 Dose: Infused Documented by: Sodium Chloride (Nss 1000ml) 1,000 mls @ 60 mls/hr IV .[id number] [facility] Stop: 11/22/18 15:29 Last Admin: 10/27/18 06:47 Dose: 60 mls/hr Documented by: Sodium Chloride (Nss) 250 mls @ 15 mls/hr IV .[id number] PRN PRN Reason: For Transfusion Stop: 11/23/18 10:19 Sodium Chloride (Nss) 250 mls @ 15 mls/hr IV .[id number] PRN PRN Reason: For Transfusion Stop: 11/26/18 08:09 Levofloxacin (Levaquin) 500 mg PO DAILY@1100 [facility] Stop: 11/22/18 10:59 Last Admin: 10/26/18 12:06 Dose: 500 mg Documented by: Megestrol Acetate (Megace) 40 mg PO QID [facility] Stop: 11/21/18 20:59 Last Admin: 10/27/18 08:57 Dose: 40 mg Documented by: Metoprolol Succinate (Toprol Xl) 25 mg PO BID [facility] Stop: 11/21/18 20:59 Last Admin: 10/27/18 08:58 Dose: 25 mg Documented by: Miscellaneous (Order Awaiting Action) 1 ea N/A QS [facility] Stop: 11/22/18 00:00 Last Admin: 10/26/18 08:39 Dose: Not Given Documented by: Ondansetron HCl (Zofran) 4 mg IV Q6H PRN PRN Reason: Nausea Stop: 11/21/18 20:06 Last Admin: 10/25/18 07:52 Dose: 4 mg Documented by: Pantoprazole Sodium (Protonix) 40 mg PO DAILY [facility] Stop: 11/22/18 08:59 Last Admin: 10/27/18 08:58 Dose: 40 mg Documented by: Potassium Chloride (Klor-Con M20) 20 meq PO BID [facility] Stop: 11/21/18 20:59 Last Admin: 10/27/18 08:58 Dose: 20 meq Documented by: Tramadol HCl (Ultram) 50 mg PO Q6H PRN PRN Reason: Pain Stop: 11/22/18 15:00 Last Admin: 10/26/18 19:57 Dose: 50 mg Documented by: Voriconazole (Vfend) 200 mg PO BID [facility] Stop: 11/25/18 20:59 Last Admin: 10/27/18 08:58 Dose: 200 mg Documented by: (1) AML (acute myeloblastic leukemia) Leukemia Active/Remission status: without remission Qualified Code(s): C92.00 - Acute myeloblastic leukemia, not having achieved remission
[2018-10-27] MEDS: levoFLOXacin 500 MG TAB PO SCH (12:13)
[2018-10-27] MEDS: DIGOXIN 0.125 MG TAB PO SCH (16:44)
[2018-10-27] MEDS: ERTAPENEM SODIUM 1,000 MG in SODIUM CHLORIDE 0.9% 50 ML IV SCH (17:58)
[2018-10-28] MEDS ORDERED: POLYETHYLENE (MIRALAX) 17 GM PACK PO PRN (05:27)
[2018-10-28 06:26] LABS: BUN Creatinine Ratio 28.1 (10-20); Creatinine Clr Calc Pharmacy 92.1 ml/min; Est GFR (African American) 116.9; Est GFR (Non-African American) 100.8; Hematocrit (blood only) 30.2 % (37-47); Hemoglobin 10.4 g/dL (12.0-16.0); Magnesium 1.5 mg/dl (1.8-2.4); Mean Corpuscular Hgb Conc 34.4 g/dL (32-36); Mean Corpuscular Volume 86.8 fL (80-100); Mean Platelet Volume 9.2 fL (7.4-10.4); Platelet Count 23 K/uL (130-400); RDW Coefficient of Variation 14.1 % (11.5-14.5); RDW Standard Deviation 44.7 fL (36.4-46.3); Red Blood Count 3.48 M/uL (4.2-5.4); White Blood Count 1.71 K/uL (4.8-10.8)
[2018-10-28 06:27] LABS: Phosphorus 2.5 mg/dl (2.5-4.9)
[2018-10-28 06:40] LABS: Platelet Estimate SIGNIFIC DECREASED (Normal)
[2018-10-28 06:41] LABS: ALC (manual) 0.73 K/uL (1.2-3.4); Blast # (manual) 0.82 K/uL (0-0); Blast Cells % (manual) 47.9 %; Lymphocytes # (manual) 0.54 K/uL (1.2-3.4); Lymphocytes % (manual) 31.3 %; Neutrophils % (manual) 7.8 %; Promyelocytes # (manual) 0.03 K/uL (0-0); Promyelocytes % (manual) 1.7 %; Reactive Lymphocytes # (manual) 0.19 K/uL
[2018-10-28] MEDS: ACETAMINOPHEN 325 MG TAB PO PRN ×2 (08:09→20:38)
[2018-10-28] MEDS: ONDANSETRON INJ 2 MG/ML 2 ML VIAL IV PRN (08:10)
[2018-10-28] MEDS: PANTOprazole 40 MG TAB PO SCH (09:23)
[2018-10-28] MEDS: VORICONAZOLE 200 MG TABLET PO SCH ×2 (09:23→20:35)
[2018-10-28] MEDS: ALLOPURINOL 300 MG TAB PO SCH (09:23)
[2018-10-28] MEDS: POTASSIUM CHLORIDE 20 MEQ TABCR PO SCH ×2 (09:23→20:36)
[2018-10-28] MEDS: MEGESTROL ACETATE 40 MG TAB PO SCH ×4 (09:23→20:35)
[2018-10-28] MEDS: METOPROLOL SUCC 25MG EXT REL TAB PO SCH ×2 (09:23→20:41)
[2018-10-28] MEDS: ACYCLOVIR 400 MG TAB PO SCH ×2 (09:23→20:35)
[2018-10-28] MEDS: BRIMONIDINE TARTRATE-P 0.15% 5 ML BTL OPB SCH ×2 (09:24→20:34)
[2018-10-28] MEDS: levoFLOXacin 500 MG TAB PO SCH (11:44)
[2018-10-28] MEDS: SODIUM CHLORIDE 0.9% 1000ML 1,000 ML IV SCH (11:44)
--- NOTE | 2018-10-28 12:06 | Hospitalist Progress Note ---
Date of Service October 28, 2018 Assessment & Plan (1) AML (acute myeloblastic leukemia): [place] [facility] [place] [facility] and has PRBC transfusion if Hgb<10. Platelet transfusion if Plt<10 on mondays and if Plt<20 on wednesdays and fridays. Receives premedication of Tylenol 650 mg p.o. and Benadryl 50 mg p.o. prior to platelet transfusion and PRBC transfusion 10/22/18 had 1 unit PRBC and platelet transfusion - per patient, received pRBC to maintain Hg >10, plateletpharesis to maintain Plt > 10k 1 unit PRBC ordered no signs of active bleeding -Continue acyclovir, Levaquin, isavuconazonium -Continue radiated PRBCs and platelet transfusion per heme/oncology guidelines -Platelet count is down today to 8 -We will transfuse 1 unit of platelets today -Discussed with the oncologist and plan to keep her in the hospital for the next few days to see if any improvement -The patient herself talked to the oncologist as well -We will discuss with oncologist tomorrow for further management plan -The patient remains extremely weak and lethargic which is secondary to her AML The case was discussed with Dr. Horvath, the oncologist at [place] who does not think she is a candidate for chemotherapy anymore -Discussed with the patient and palliative care consulted for tomorrow for further guidance and management -Likely to be discharged with hospice care in a facility (2) Diverticulitis of large intestine with abscess: Gen Surg, GI, ID consulted Continue Ertapenem IV Surgical intervention not recommended Repeat CT in 2-3 weeks Outpatient colonoscopy 8-12 weeks Clinically stable and denies any pain and/or distention of the abdomen Bowel has been moving Complains to have increased pain in the abdomen today without any fever and/or other associated symptoms Will get a CT scan of the abdomen to evaluate diverticular abscess further Continue current intravenous antibiotic Repeat CT of the abdomen and pelvis showed diverticulitis without any abscess Her diverticulitis seems to be completely asymptomatic without any significant signs We will continue with intravenous antibiotic for now (3) Fall: (4) Multiple contusions: Pt with hx fall yesterday and reported 3 falls in past month. Prior to falls reports dizziness. CT HEAD:no acute abnormality CT ABD/PELVIS: Asymmetric enlargement of the left paraspinal musculature of the mid to upper lumbar spine suggestive of a small amount of intramuscular hemorrhage. No active extravasation. Adjacent subcutaneous contusion. 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 Diverticulitis is contributing Still complains to have back pain at the hematoma site No significant pain from the contusion site (5) Pancytopenia: Secondary to AML and treatment for We will monitor CBC Discussed with the oncologist in [place]-he wants to give chemotherapy for this lady but due to current infection it will not be possible He is agreeable to transfer the patient to [place] if needed Platelet count went down to 7 We will give 1 unit of platelet transfusion today Received another unit of platelets yesterday and the count is 23 today (6) Non-ischemic cardiomyopathy: No acute symptoms (7) Sinus tachycardia: No CP. Current sinus rhythm rate in 80's Hx echo 02/2018: EF 40%, mild diffuse LV hypokinesis -Continue digoxin, metoprolol -Get an EKG to make sure there is no QT prolongation (8) CKD (chronic kidney disease), stage III: Cr:0.7. Stable -Monitor renal functions, avoid nephrotoxic agents when possible (9) HTN (hypertension): Stable -Continue metoprolol HEADACHE - CT head ordered to r/o hemorrhage in light of thrombocytopenia: negative - started after fall1 week ago possible concussion? migraine? Headache is not persistent and when it comes last for a few seconds We will observe him medically and Still has headache blood pressure is on upper side of normal DVT Prophylaxis -SCDs in light of thrombocytopenia DNR/DNI as per discussion with pt Follows with Dr Pineda for routine care Prognosis remains very poor Likely be discharged with hospice care in a facility Subjective 10/24 The patient was seen and examined in medical floor She was admitted with the CT scan finding of diverticular abscess with immunosuppression secondary to AML on treatment Remains very weak and lethargic Feels dizzy when ambulance Denies any fever and/or chills No pain 10/25 She complains to have some pain at the back without radiation and maybe in the abdomen Remains very weak and lethargic and feels dizzy on standing and ambulating Denies any nausea and/or vomiting, any diarrhea or blood in the stool Denies any other significant symptoms 10/26 The patient was seen and examined in medical She complains to extreme weakness and tiredness that she could hardly move around Discussed with the oncologist regarding Condition is secondary to worsening AML and treatment cannot be given until the physical condition improves Discussed with the patient We will continue current antibiotic for the next 2-3 days and reevaluate 10/27 The patient was seen and examined the medical floor She remains extremely lethargic, cannot even sit up on the bed for a long time Denies any other symptoms, no abdominal pain nausea and/or vomiting, no shortness of breath 10/28 The patient was seen and examined in medical floor She has had episodes of dizziness and headache last night Denies any focal neurological deficit this morning and remains extremely weak and tired Physical Exam Vital Signs (Past 24 Hours): Last Vital Signs Temp 36.6 C 10/28/18 11:46 Pulse 79 10/28/18 11:46 Resp 18 10/28/18 11:46 BP 163/82 H 10/28/18 11:46 Pulse Ox 97 10/28/18 11:46 Physical Exam: No apparent distress at rest but remains extremely weak and lethargic Constitutional: WD/WN, vitals as above + thin, + frail appearing, well groomed, cooperative and comfortable; no acute distress Eyes: PERRL, conjunctivae normal, anicteric sclerae ENMT: external ear and nose normal, oropharynx normal Neck: trachea midline, no thyromegaly neck nontender Respiratory: normal respiratory effort, + respiratory distress (Minimal) and normal percussion; does not use accessory muscles Auscultation: + diminished lung sounds Cardiovascular: RRR, no murmur, no edema Rate/Rhythm: regular rate and regular rhythm Heart Sounds: normal S1 and normal S2; no gallop, no murmur and no cardiac rub Vessels: normal peripheral pulses; no JVD Gastrointestinal (Abdomen): normal bowel sounds, soft, nontender, no hepatosplenomegaly Inspection/Auscultation: abdomen normal to inspection and normal bowel sounds; abdomen not distended Percussion/Palpation: abdomen soft; abdomen nontender Musculoskeletal: no cyanosis or clubbing, extremities motor strength 5/5 Spine: thoracic spine normal to inspection and lumbar spine normal to inspection; no cervical spinal tenderness Skin: + rash and + ecchymosis (Has generalized bruising and ecchymosis ) Neurologic: moves all extremities and awake Psychiatric: Orientation: alert, oriented x 3 and cooperative Mood: + depressed mood and + anxious mood Lymphatic: no cervical or axillary lymphadenopathy no lymphedema and no inguinal lymphadenopathy Results & Data Laboratory Results Short CBC 10/28/18 Range/Units 05:56 WBC 1.71 L (4.8-10.8) K/uL Hgb 10.4 L (12.0-16.0) g/dL Hct 30.2 L (37-47) % Plt Count 23 L* D (130-400) K/uL BMP 10/28/18 05:56 Sodium 136 Potassium 4.0 Chloride 103 Carbon Dioxide 28 BUN 12 Creatinine 0.44 L Glucose 100 H Calcium 9.0 Medications Administered Current Inpatient Medications Acetaminophen (Tylenol) 650 mg PO Q4H PRN PRN Reason: Pain or Fever Stop: 11/21/18 18:42 Last Admin: 10/28/18 08:09 Dose: 650 mg Documented by: Acyclovir (Zovirax) 400 mg PO BID [facility] Stop: 11/21/18 20:59 Last Admin: 10/28/18 09:23 Dose: 400 mg Documented by: Allopurinol (Zyloprim) 300 mg PO DAILY [facility] Stop: 11/22/18 08:59 Last Admin: 10/28/18 09:23 Dose: 300 mg Documented by: Brimonidine Tartrate (Alphagan-P 0.15%) 1 drops OPB BID [facility] Stop: 11/21/18 20:59 Last Admin: 10/28/18 09:24 Dose: 1 drops Documented by: Digoxin (Lanoxin) 0.125 mg PO DAILY@1600 [facility] Stop: 11/21/18 20:59 Last Admin: 10/27/18 16:44 Dose: 0.125 mg Documented by: Ertapenem (Consult) 1 ea N/A UD PRN PRN Reason: Consult Stop: 11/21/18 20:29 Heparin Sodium (Porcine) (Heparin Sod 100 Unit/Ml Flush) 5 ml FLUSH PRN PRN PRN Reason: Flush Stop: 11/21/18 20:39 Last Admin: 10/23/18 07:54 Dose: 5 ml Documented by: Sodium Chloride (Nss) 250 mls @ 15 mls/hr IV .[id number] PRN PRN Reason: For Transfusion Stop: 11/21/18 20:06 Ertapenem 1,000 mg/ Sodium (Chloride) 60 mls @ 100 mls/hr IV DAILY@1800 [facility]; Protocol Stop: 11/01/18 17:59 Last Infusion: 10/27/18 19:14 Dose: Infused Documented by: Sodium Chloride (Nss 1000ml) 1,000 mls @ 60 mls/hr IV .[id number] [facility] Stop: 11/22/18 15:29 Last Admin: 10/28/18 11:44 Dose: 60 mls/hr Documented by: Sodium Chloride (Nss) 250 mls @ 15 mls/hr IV .[id number] PRN PRN Reason: For Transfusion Stop: 11/23/18 10:19 Sodium Chloride (Nss) 250 mls @ 15 mls/hr IV .[id number] PRN PRN Reason: For Transfusion Stop: 11/26/18 08:09 Levofloxacin (Levaquin) 500 mg PO DAILY@1100 [facility] Stop: 11/22/18 10:59 Last Admin: 10/28/18 11:44 Dose: 500 mg Documented by: Megestrol Acetate (Megace) 40 mg PO QID [facility] Stop: 11/21/18 20:59 Last Admin: 10/28/18 11:44 Dose: 40 mg Documented by: Metoprolol Succinate (Toprol Xl) 25 mg PO BID [facility] Stop: 11/21/18 20:59 Last Admin: 10/28/18 09:23 Dose: 25 mg Documented by: Miscellaneous (Order Awaiting Action) 1 ea N/A QS [facility] Stop: 11/22/18 00:00 Last Admin: 10/26/18 08:39 Dose: Not Given Documented by: Ondansetron HCl (Zofran) 4 mg IV Q6H PRN PRN Reason: Nausea Stop: 11/21/18 20:06 Last Admin: 10/28/18 08:10 Dose: 4 mg Documented by: Pantoprazole Sodium (Protonix) 40 mg PO DAILY [facility] Stop: 11/22/18 08:59 Last Admin: 10/28/18 09:23 Dose: 40 mg Documented by: Polyethylene Glycol (Miralax Powder Packet) 17 gm PO DAILY PRN PRN Reason: Constipation Stop: 11/27/18 05:26 Last Admin: 10/28/18 08:10 Dose: 17 gm Documented by: Potassium Chloride (Klor-Con M20) 20 meq PO BID [facility] Stop: 11/21/18 20:59 Last Admin: 10/28/18 09:23 Dose: 20 meq Documented by: Tramadol HCl (Ultram) 50 mg PO Q6H PRN PRN Reason: Pain Stop: 11/22/18 15:00 Last Admin: 10/26/18 19:57 Dose: 50 mg Documented by: Voriconazole (Vfend) 200 mg PO BID [facility] Stop: 11/25/18 20:59 Last Admin: 10/28/18 09:23 Dose: 200 mg Documented by: (1) AML (acute myeloblastic leukemia) Leukemia Active/Remission status: without remission Qualified Code(s): C92.00 - Acute myeloblastic leukemia, not having achieved remission
[2018-10-28] MEDS: DIGOXIN 0.125 MG TAB PO SCH (17:00)
[2018-10-28] MEDS: ERTAPENEM SODIUM 1,000 MG in SODIUM CHLORIDE 0.9% 50 ML IV SCH (17:32)
[2018-10-28] MEDS: TRAMADOL HCL 50 MG TABLET PO PRN (22:06)
[2018-10-29] MEDS: SODIUM CHLORIDE 0.9% 1000ML 1,000 ML IV SCH ×2 (03:23→20:38)
[2018-10-29 07:06] LABS: Mean Corpuscular Hgb Conc 34.5 g/dL (32-36); Mean Corpuscular Volume 86.1 fL (80-100); Platelet Count 14 K/uL (130-400); RDW Standard Deviation 44.6 fL (36.4-46.3); Red Blood Count 3.37 M/uL (4.2-5.4)
[2018-10-29 07:28] LABS: Calcium 8.9 mg/dl (8.5-10.1); Creatinine Clr Calc Pharmacy 103.6 ml/min; Est GFR (African American) 120.6; Est GFR (Non-African American) 104.1; Potassium 4.2 mmol/L (3.5-5.1); RBC Morphology Unremarkable
[2018-10-29 07:30] LABS: ALC (manual) 0.81 K/uL (1.2-3.4); Blast Cells % (manual) 55.2 %; Lymphocytes # (manual) 0.81 K/uL (1.2-3.4); Lymphocytes % (manual) 40.4 %; Monocytes # (manual) 0.04 K/uL (0.11-0.59); Monocytes % (manual) 1.8 %; Neutrophils % (manual) 2.6 %
[2018-10-29] MEDS: POTASSIUM CHLORIDE 20 MEQ TABCR PO SCH ×2 (08:17→20:38)
[2018-10-29] MEDS: MEGESTROL ACETATE 40 MG TAB PO SCH ×4 (08:17→20:37)
[2018-10-29] MEDS: PANTOprazole 40 MG TAB PO SCH (08:17)
[2018-10-29] MEDS: ACYCLOVIR 400 MG TAB PO SCH ×2 (08:18→20:38)
[2018-10-29] MEDS: BRIMONIDINE TARTRATE-P 0.15% 5 ML BTL OPB SCH ×2 (08:18→20:38)
[2018-10-29] MEDS: ALLOPURINOL 300 MG TAB PO SCH (08:18)
[2018-10-29] MEDS: METOPROLOL SUCC 25MG EXT REL TAB PO SCH ×2 (09:11→20:37)
[2018-10-29] MEDS: VORICONAZOLE 200 MG TABLET PO SCH ×2 (09:11→20:38)
[2018-10-29] MEDS: ACETAMINOPHEN 325 MG TAB PO PRN (09:35)
[2018-10-29] MEDS: levoFLOXacin 500 MG TAB PO SCH (11:00)
--- NOTE | 2018-10-29 11:23 | Hospitalist Progress Note ---
Date of Service October 29, 2018 Assessment & Plan (1) AML (acute myeloblastic leukemia): Pt follows with Dr Horvath oncology at [facility] [place] patient receiving PRN blood transfusion had discussion with Oncologist in [place], not recommending treatment at this point discussed with patient at length she is ready to have discussion with Palliative care team -Continue acyclovir, Levaquin, isavuconazonium -Continue pain management (2) Diverticulitis of large intestine with abscess: Gen Surg, GI, ID consulted Continue Ertapenem IV Surgical intervention not recommended Repeat CT in 2-3 weeks Outpatient colonoscopy 8-[address] of the abdomen and pelvis showed diverticulitis without any abscess -- continue Ertapenem for now (3) Fall: (4) Multiple contusions: Pt with hx fall yesterday and reported 3 falls in past month. Prior to falls reports dizziness. CT HEAD:no acute abnormality CT ABD/PELVIS: Asymmetric enlargement of the left paraspinal musculature of the mid to upper lumbar spine suggestive of a small amount of intramuscular hemorrhage. No active extravasation. Adjacent subcutaneous contusion. 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 Diverticulitis is contributing -- not much body pain today monitor (5) Pancytopenia: receives PRN transfusion (6) Non-ischemic cardiomyopathy: No acute symptoms (7) Sinus tachycardia: No CP. Current sinus rhythm rate in 80's Hx echo 02/2018: EF 40%, mild diffuse LV hypokinesis -Continue digoxin, metoprolol (8) CKD (chronic kidney disease), stage III: Cr:0.7. Stable -Monitor renal functions, avoid nephrotoxic agents when possible (9) HTN (hypertension): Stable -Continue metoprolol HEADACHE - CT head ordered to r/o hemorrhage in light of thrombocytopenia: negative - started after fall1 week ago possible concussion? migraine? Headache is not persistent and when it comes last for a few seconds We will observe him medically and Still has headache blood pressure is on upper side of normal DVT Prophylaxis -SCDs in light of thrombocytopenia DNR/DNI as per discussion with pt Follows with Dr Pineda for routine care Prognosis remains very poor Likely be discharged with hospice care in a facility Subjective ff up for AML, diverticular abscess seen resting in bed not in distress states she feels very tired no abdominal pain states she is ready to discontinue treatment for her AML and focus on being comfortable no other symptoms Physical Exam Vital Signs (Past 24 Hours): Last Vital Signs Temp 37.1 C 10/29/18 09:19 Pulse 67 10/29/18 09:19 Resp 22 10/29/18 09:19 BP 159/80 H 10/29/18 09:19 Pulse Ox 97 10/29/18 09:19 Physical Exam: General- oriented x 3, not in distress, speaks in sentences with no effort or accessory muscle use Eyes- anicteric Neck- no JVD Lungs- clear breath sounds bilaterally, no rales/wheezes Heart- normal rate, regular rhythm; no murmurs Abdomen- normal bowel sounds, nondistended, soft, nontender Extremities- no pretibial edema, no calf tenderness Neuro- alert, oriented x 3; no gross focal neurologic deficits Skin- warm & dry Results & Data Laboratory Results Laboratory Results - last 24 hr 10/29/18 10/29/18 06:36 06:36 WBC 2.00 L RBC 3.37 L Hgb 10.0 L Hct 29.0 L MCV 86.1 MCH 29.7 MCHC 34.5 RDW Std Deviation 44.6 RDW Coeff of Jemal 14.0 Plt Count 14 L* MPV 8.0 Neutrophils % (Manual) 2.6 Lymphocytes % (Manual) 40.4 Monocytes % (Manual) 1.8 Blast Cells % (Manual) 55.2 Neutrophils # (Manual) 0.05 L Total Absolute Neuts 0.05 L* Lymphocytes # (Manual) 0.81 L Total Abs Lymphocytes 0.81 L Monocytes # (Manual) 0.04 L Blast Cells # (Man) 1.10 H RBC Morphology Unremarkable Sodium 135 L Potassium 4.2 Chloride 102 Carbon Dioxide 30 Anion Gap 4.0 BUN 11 Creatinine 0.40 L Est Cr Clr Drug Dosing 103.6 Est GFR ( Amer) 120.6 Est GFR (Non-Af Amer) 104.1 BUN/Creatinine Ratio 27.0 H Glucose 99 Calcium 8.9 (1) AML (acute myeloblastic leukemia) Leukemia Active/Remission status: without remission Qualified Code(s): C92.00 - Acute myeloblastic leukemia, not having achieved remission
--- NOTE | 2018-10-29 11:58 | Palliative Care Consultation ---
Date of Consultation October 29, 2018 Assessment & Plan (1) Goals of care, counseling/discussion: -73 year old female patient with PMH AML, pancytopenia, and platelet transfusion dependent, biventricular heart failure, follicular lymphoma in 2010 followed at [facility], HTN, dyslipidemia, glaucoma, CKD III,h/o PE in 08/2017 initially treated with Lovenox presented to ER from [facility] with complaint of left back pain and bruising after a fall. Patient goes to [facility] M,W,F for platelet transfusions, has monthly chemo injections. Follows with oncologist at [facility] in [place]. General surgery was consulted on admission, no surgical intervention but patient started on IV abx. ID consulted. Patient has had progressive weakness in the last year and especially in the last few weeks. She has frequent falls at home, profound weakness and fatigue, poor appetite and anorexia despite being on Megace. Given her advancing disease, palliative care is consulted for supportive care and to discuss goals of care. -Met with patient in room 282. She is awake, alert and oriented x4. Patient's only complaint is the severe weakness. She is no longer able to even get to bedside commode and has been using the bedpan. -Patient states, "I've just had enough. I can't do any more chemo." -She is uncertain at this time how long she wants to continue transfusions. We discussed making that decision based on her comfort level and quality of life-- if she feels that the burden of transfusing three times a week outweighs the benefit, she might decide to discontinue the transfusions. Of course if she does decide to discontinue, then she must accept the risk of bleeding and that the goal at that point would strictly be for comfort. Patient verbalizes understanding. -Patient will not be able to go home. Will need SNF upon discharge which she is agreeable to. Please ask PT/OT to see patient again and make recommendations. -Will start decadron 2mg PO daily to try and help with fatigue and possibly appetite. -Patient has a son who lives in [place], [place]. He is aware of her situation but is somewhat removed right now. Patient states he is angry about her diagnosis and is not accepting yet. -Patient has no pain. -Will continue to follow. (2) Diverticulitis of large intestine with abscess: (3) Thrombocytopenia: (4) AML (acute myeloblastic leukemia): Leukemia Active/Remission status: without remission Qualified Code(s): C92.00 - Acute myeloblastic leukemia, not having achieved remission Supervising Physician Co-Signing Physician Notes Chart reviewed, patient seen and examined-patient's [id number] at bedside PE: Patient initially asleep, did awaken during my visit HEENT: EOMI, periorbital bruising on the left, hearing within normal limits Respirations: Unlabored CV: Regular rate Abdomen: Not distended Extremities: No edema Neuro: Alert and oriented x4 Agree with above note, assessment and plan as per GURJIT Bhagat P-will continue to follow and assist with medical decision making History of Present Illness Attending Physician: Augustus Goyal MD History of Present Illness This 73 year old female patient with PMH AML, pancytopenia, and platelet transfusion dependent, biventricular heart failure, follicular lymphoma in 2010 followed at [facility], HTN, dyslipidemia, glaucoma, CKD III,h/o PE in 08/2017 initially treated with Lovenox presented to ER from [facility] with complaint of left back pain and bruising after a fall. Patient goes to [facility] M,W,F for platelet transfusions, has monthly chemo injections. Follows with oncologist at [facility] in [place]. General surgery was consulted on admission, no surgical intervention but patient started on IV abx. ID consulted. Patient has had progressive weakness in the last year and especially in the last few weeks. She has frequent falls at home, profound weakness and fatigue, poor appetite and anorexia despite being on Megace. Given her advancing disease, palliative care is consulted for supportive care and to discuss goals of care. Thank you kindly for this consult. I will follow. Allergies Allergy/AdvReac Type Severity Reaction Status Date / Time cefepime Allergy Intermediate RASH Verified 10/23/18 10:07 azithromycin AdvReac Intermediate Hypotension Verified 10/22/18 10:18 mivacurium AdvReac Intermediate CRASHED TO Verified 10/22/18 10:18 FLOOR Home Medications Home Medications Medication Instructions Recorded Confirmed Type Alphagan P 1 drp OPB BID 03/26/18 10/22/18 History Cresemba 372 mg PO DAILY 03/26/18 10/22/18 History acetaminophen [Tylenol] 650 mg PO Q6 PRN 03/26/18 10/22/18 History acyclovir [Zovirax] 400 mg PO BID 03/26/18 10/22/18 History allopurinol 300 mg PO DAILY 03/26/18 10/22/18 History digoxin 125 mcg PO DAILY 03/26/18 10/22/18 History levofloxacin [Levaquin] 500 mg PO DAILY 03/26/18 10/22/18 History potassium chloride [Klor-Con M20] 20 meq PO BID 03/26/18 10/22/18 History sennosides [Senokot] 8.6 mg PO DAILY PRN 03/26/18 10/22/18 History megestrol 40 mg PO QID 07/09/18 10/22/18 History metoprolol succinate 25 mg PO BID #60 tab 07/11/18 10/22/18 Rx omeprazole 40 mg PO DAILY 10/22/18 10/22/18 History Patient History Medical History Biventricular heart failure (Chronic) Neutropenia (Chronic) Anemia (Chronic) Exertional shortness of breath (Chronic) CKD (chronic kidney disease), stage III (Chronic) Dyslipidemia (Chronic) HTN (hypertension) (Chronic) History of hysterectomy (Resolved) AML (acute myeloblastic leukemia) (Chronic) Thrombocytopenia (Chronic) Lymphoma, follicular (Chronic) - s/p chemo, radiation. followed with [facility] Bloody stool (Acute) Surgical History History of removal of cyst (Resolved) removed in mouth Family History Other COPD (chronic obstructive pulmonary disease) Lymphoma Social History Communication Ability: Effective Beliefs That Will Affect Care: None Current Living Situation: Alone Current Living Situation Comment: home Other Information That Helps Us Care for You: No Feels Safe at Home: Yes Safety Concerns: Feels Safe At This Time Smoking Status: Never smoker Hx Alcohol Use: No Hx Substance Use: No Review of Systems Constitutional: + fatigue, + weakness and + anorexia Ear, Nose, Mouth, Throat: no dysphagia Respiratory: no cough and no dyspnea Cardiovascular: no chest pain and no edema Gastrointestinal: no abdominal pain and no nausea Neurologic: no confusion Psychiatric: no depression and no anxiety Physical Exam Vital Signs (Past 24 Hours): Last Vital Signs Temp 36.8 C 10/29/18 11:22 Pulse 65 10/29/18 11:22 Resp 16 10/29/18 11:22 BP 160/82 H 10/29/18 11:22 Pulse Ox 98 10/29/18 11:22 Constitutional: + thin, + frail appearing and comfortable ENMT: external ear and nose normal, oropharynx normal Respiratory: normal respiratory effort, lungs clear to auscultation normal respiratory effort Auscultation: + diminished lung sounds Cardiovascular: RRR, no murmur, no edema Vessels: normal peripheral pulses; no JVD Gastrointestinal (Abdomen): Inspection/Auscultation: abdomen normal to inspection and normal bowel sounds; abdomen not distended Percussion/Palpation: abdomen soft Skin: + ecchymosis (Has generalized bruising and ecchymosis ) Neurologic: moves all extremities and awake Psychiatric: A+Ox3, euthymic affect Time Spent Midlevel 75 minutes with >50% of time spent at bedside with patient discussing condition and GOC.
[2018-10-29] MEDS: TRAMADOL HCL 50 MG TABLET PO PRN ×2 (15:50→23:26)
[2018-10-29] MEDS: DIGOXIN 0.125 MG TAB PO SCH (15:50)
[2018-10-29] MEDS: ONDANSETRON INJ 2 MG/ML 2 ML VIAL IV PRN (17:36)
[2018-10-29] MEDS: ERTAPENEM SODIUM 1,000 MG in SODIUM CHLORIDE 0.9% 50 ML IV SCH (18:23)
--- NOTE | 2018-10-29 19:38 | Infectious Disease Progress Nt ---
Date of Service October 29, 2018 Assessment & Plan (1) Diverticulitis of large intestine with abscess: 73-year-old female with AML with sigmoid diverticulitis with small abscess formation. Patient to be continued on IV ertapenem for now, consider po Augmentin as oupatient pending f/u CT. Discussed with hospitalist. Subjective Patient seen in follow-up for diverticulitis. Has somewhat more abdominal pain, otherwise without major change in symptoms. No fever. Follow-up CT scan shows no significant worsening. Physical Exam Vital Signs (Past 24 Hours): Last Vital Signs Temp 36.4 C L 10/29/18 15:24 Pulse 78 10/29/18 15:50 Resp 16 10/29/18 15:24 BP 154/80 H 10/29/18 15:24 Pulse Ox 98 10/29/18 15:24 Constitutional: WD/WN, vitals as above comfortable; no acute distress Eyes: PERRL, conjunctivae normal, anicteric sclerae ENMT: external ear and nose normal, oropharynx normal Neck: trachea midline, no thyromegaly neck nontender Respiratory: normal respiratory effort, lungs clear to auscultation normal percussion; no respiratory distress and does not use accessory muscles Cardiovascular: Rate/Rhythm: regular rate and regular rhythm Heart Sounds: normal S1 and normal S2; no gallop, no murmur and no cardiac rub Vessels: normal peripheral pulses; no JVD Gastrointestinal (Abdomen): normal bowel sounds, soft, nontender, no hepatosplenomegaly Inspection/Auscultation: abdomen normal to inspection and normal bowel sounds Percussion/Palpation: + abdomen tender (Minimal left lower quadrant) and abdomen soft; no hepatosplenomegaly and no abdominal mass Musculoskeletal: no cyanosis or clubbing, extremities motor strength 5/5 Spine: thoracic spine normal to inspection and lumbar spine normal to inspection; no cervical spinal tenderness Skin: no rashes, warm and dry normal turgor and + ecchymosis (Multiple); no rashes and no lesions Neurologic: moves all extremities and awake; no focal motor deficits and no meningeal signs Motor/Sensory: no sensory deficit Psychiatric: A+Ox3, euthymic affect Orientation: cooperative Lymphatic: no cervical or axillary lymphadenopathy no inguinal lymphadenopathy Results & Data Laboratory Results Short CBC 10/29/18 Range/Units 06:36 WBC 2.00 L (4.8-10.8) K/uL Hgb 10.0 L (12.0-16.0) g/dL Hct 29.0 L (37-47) % Plt Count 14 L* (130-400) K/uL [facility] 10/29/18 06:36 Sodium 135 L Potassium 4.2 Chloride 102 Carbon Dioxide 30 BUN 11 Creatinine 0.40 L Glucose 99 Calcium 8.9
[2018-10-30] MEDS: METOPROLOL SUCC 25MG EXT REL TAB PO SCH ×2 (08:27→21:53)
[2018-10-30] MEDS: ACYCLOVIR 400 MG TAB PO SCH ×2 (08:27→21:52)
[2018-10-30] MEDS: ALLOPURINOL 300 MG TAB PO SCH (08:27)
[2018-10-30] MEDS: PANTOprazole 40 MG TAB PO SCH (08:28)
[2018-10-30] MEDS: VORICONAZOLE 200 MG TABLET PO SCH ×2 (08:28→21:52)
[2018-10-30] MEDS: POTASSIUM CHLORIDE 20 MEQ TABCR PO SCH ×2 (08:28→21:53)
[2018-10-30] MEDS: BRIMONIDINE TARTRATE-P 0.15% 5 ML BTL OPB SCH ×2 (08:29→21:51)
[2018-10-30] MEDS: MEGESTROL ACETATE 40 MG TAB PO SCH ×4 (08:29→21:51)
[2018-10-30] MEDS: ACETAMINOPHEN 325 MG TAB PO PRN (08:35)
[2018-10-30] MEDS: dexAMETHasone 4 MG TAB PO SCH (10:00)
[2018-10-30] MEDS: SODIUM CHLORIDE 0.9% 1000ML 1,000 ML IV SCH (10:07)
--- NOTE | 2018-10-30 10:26 | Palliative Care Progress Note ---
Date of Service October 30, 2018 Assessment & Plan (1) Goals of care, counseling/discussion: -73 year old female patient with AML, currently undergoing treatment and platelet transfusion M,W,F. Here with diverticulitis, severe weakness and fatigue. -Patient remains extremely weak today. Her son and brother are coming to visit her today and she plans to talk to them about her goals of care and plan. She is undecided about whether or not to continue transfusions vs. comfort/hospice care. Patient does not want to continue chemo. -Patient will need SNF upon discharge. Case management following. -Started decadron 2mg PO Daily today. Hoping it might help with fatigue and appetite. -Will continue to follow. (2) Diverticulitis of large intestine with abscess: (3) Thrombocytopenia: (4) AML (acute myeloblastic leukemia): (5) Weakness: Subjective Patient remains extremely weak today. Had a headache for most of last night. Her son and brother are coming to visit today. Review of Systems Denies pain, SOB, chest pain, N/V/D. Does c/o generalized weakness, fatigue, and occasional headache. Physical Exam Vital Signs (Past 24 Hours): Last Vital Signs Temp 36.4 C L 10/30/18 08:01 Pulse 62 10/30/18 08:01 Resp 16 10/30/18 08:01 BP 172/77 H 10/30/18 08:01 Pulse Ox 99 10/30/18 08:01 Constitutional: + thin, + frail appearing and comfortable ENMT: external ear and nose normal, oropharynx normal Respiratory: normal respiratory effort, lungs clear to auscultation normal respiratory effort Auscultation: + diminished lung sounds Cardiovascular: RRR, no murmur, no edema Vessels: normal peripheral pulses; no JVD Gastrointestinal (Abdomen): Inspection/Auscultation: abdomen normal to inspection and normal bowel sounds; abdomen not distended Percus elif/Palpation: abdomen soft Skin: + ecchymosis (Has generalized bruising and ecchymosis ) Neurologic: moves all extremities and awake Psychiatric: A+Ox3, euthymic affect Supervising Physician Co-Signing Physician Notes Collaborated with attending physician Dr. Goyal, Patient's son had been at bedside-went to see patient, her son had already left and returned home. Patient's brother and [id number] were present at bedside. Patient's brother had just arrived-patient has not yet had time to talk with him regarding her current condition and goals of care. Did not go into detail at bedside since patient has not yet had time to speak with her brother. PE: Patient fatigued, awake and alert and oriented, in NAD HEENT: EOMI, hearing within normal limits Respirations: Unlabored, On room air with adequate saturation CV: Regular rate, no edema Abdomen: Not distended Extremities: Generalized weakness, nonambulatory Neuro: Alert and oriented x4 Agree with above note, assessment and plan as per GURJIT Bhagat-will continue to follow and assist patient and family with medical decision making Time Spent Midlevel 25 minutes with >50% of time spent at bedside with patient discussing condition and GOC. Attending Personally spent 20 minutes in addition to the 25 minutes spent by GURJIT Bhagat for a total of 45 minutes with greater than 50% of the time spent at bedside discussing options regarding post d/c care (1) AML (acute myeloblastic leukemia) Leukemia Active/Remission status: without remission Qualified Code(s): C92.00 - Acute myeloblastic leukemia, not having achieved remission
[2018-10-30 10:42] LABS: Hematocrit (blood only) 29.4 % (37-47); Hemoglobin 10.3 g/dL (12.0-16.0); Mean Platelet Volume 7.3 fL (7.4-10.4); Platelet Count 6 K/uL (130-400); RDW Coefficient of Variation 13.7 % (11.5-14.5); RDW Standard Deviation 42.8 fL (36.4-46.3); Red Blood Count 3.46 M/uL (4.2-5.4); White Blood Count 1.25 K/uL (4.8-10.8)
[2018-10-30 11:01] LABS: RBC Morphology Unremarkable
[2018-10-30] MEDS ORDERED: SODIUM CHLORIDE 0.9% 250 ML IV PRN (11:05)
[2018-10-30 11:06] LABS: ALC (manual) 0.42 K/uL (1.2-3.4); Blast # (manual) 0.63 K/uL (0-0); Blast Cells % (manual) 50.5 %; Lymphocytes # (manual) 0.42 K/uL (1.2-3.4); Lymphocytes % (manual) 33.9 %; Metamyelocytes # (manual) 0.03 K/uL (0-0); Metamyelocytes % (manual) 2.6 %; Monocytes # (manual) 0.02 K/uL (0.11-0.59); Monocytes % (manual) 1.7 %; Myelocytes # (manual) 0.04 K/uL (0-0); Myelocytes % (manual) 3.5 %; Neutrophils % (manual) 7.8 %
[2018-10-30] MEDS ORDERED: ACETAMINOPHEN 325 MG TAB PO STA (12:19)
[2018-10-30] MEDS: levoFLOXacin 500 MG TAB PO SCH (12:33)
[2018-10-30] MEDS: DIGOXIN 0.125 MG TAB PO SCH (17:03)
--- NOTE | 2018-10-30 18:34 | Hospitalist Progress Note ---
Date of Service October 30, 2018 Assessment & Plan (1) AML (acute myeloblastic leukemia): Pt [place] with Dr [place]vath [place] [facility] [place] PRN blood transfusion had discussion with Oncologist in [place], not recommending treatment at this point Discussed case with patient and her family today Patient maintains her statin to discontinue further chemotherapy for AML, but would still like to continue transfusions at this point discussed this this further with her family about the care service Her main goal is to maintain comfort this point Discussed with palliative care service, they will be returning tomorrow to speak with patient and her family further regarding goals of care Transfuse 2 units of platelets today platelets 6000 Trial of Decadron 2 mg p.o. ordered today to address generalized weakness -Continue acyclovir, Levaquin, isavuconazonium -Continue pain management (2) Diverticulitis of large intestine with abscess: Gen Surg, GI, ID consulted Continue Ertapenem IV Surgical intervention not recommended Repeat CT in 2-3 weeks Outpatient colonoscopy 8-[address] of the abdomen and pelvis showed diverticulitis without any abscess -- continue Ertapenem for now Dr. Garcia recommends Augmentin until repeat CT scan of abdomen is performed in about a week (3) Fall: (4) Multiple contusions: Pt with hx fall yesterday and reported 3 falls in past month. Prior to f alls reports dizziness. CT HEAD:no acute abnormality CT ABD/PELVIS: Asymmetric enlargement of the left paraspinal musculature of the mid to upper lumbar spine suggestive of a small amount of intramuscular hemorrhage. No active extravasation. Adjacent subcutaneous contusion. 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 Diverticulitis is contributing -- not much body pain today monitor (5) Pancytopenia: receives PRN transfusion (6) Non-ischemic cardiomyopathy: No acute symptoms (7) Sinus tachycardia: No CP. Current sinus rhythm rate in 80's Hx echo 02/2018: EF 40%, mild diffuse LV hypokinesis -Continue digoxin, metoprolol (8) CKD (chronic kidney disease), stage III: Cr:0.7. Stable -Monitor renal functions, avoid nephrotoxic agents when possible (9) HTN (hypertension): Stable -Continue metoprolol HEADACHE - CT head ordered to r/o hemorrhage in light of thrombocytopenia: negative - started after fall1 week ago possible concussion? migraine? Headache improving DVT Prophylaxis -SCDs in light of thrombocytopenia DNR/DNI as per discussion with pt Follows with Dr Pineda for routine care Prognosis remains very poor Anticipate discharge to care home facility when goals of care outlined by patient with palliative care service Subjective ff up for AML, diverticular abscess Seen resting in bed, patient's son Darrell and [id number] is at the bedside Patient allowed her family to be at the bedside during exam and discussion of her care States she still feels very weak overall, able to stand and go to the bathroom but it is very dizzy and weak Denies active bleeding No abdominal pain, nausea No other symptoms Physical Exam Vital Signs (Past 24 Hours): Last Vital Signs Temp 37.2 C 10/30/18 16:49 Pulse 89 10/30/18 17:03 Resp 14 10/30/18 16:49 BP 150/73 H 10/30/18 16:49 Pulse Ox 97 10/30/18 16:49 Physical Exam: General- oriented x 3, not in distress, speaks in sentences with no effort or accessory muscle use Eyes- anicteric Positive periorbital hematoma on the left side resolving Neck- no JVD Lungs- clear breath sounds bilaterally, no wheezing, no crackles Heart- normal rate, regular rhythm; no murmurs Abdomen- normal bowel sounds, nondistended, soft, nontender Extremities- no pretibial edema, no calf tenderness Multiple areas of ecchymosis and petechiae on bilateral extremities and chest Neuro- alert, oriented x 3; no gross focal neurologic deficits Skin- warm & dry Results & Data Laboratory Results Laboratory Results - last 24 hr 10/30/18 10:21 WBC 1.25 L RBC 3.46 L Hgb 10.3 L Hct 29.4 L MCV 85.0 MCH 29.8 MCHC 35.0 RDW Std Deviation 42.8 RDW Coeff of Jemal 13.7 Plt Count 6 L* D MPV 7.3 L Neutrophils % (Manual) 7.8 Lymphocytes % (Manual) 33.9 Monocytes % (Manual) 1.7 Metamyelocytes % (Man) 2.6 Myelocytes % (Man) 3.5 Blast Cells % (Manual) 50.5 Neutrophils # (Manual) 0.10 L Total Absolute Neuts 0.10 L* Lymphocytes # (Manual) 0.42 L Total Abs Lymphocytes 0.42 L Monocytes # (Manual) 0.02 L Metamyelocytes # (Man) 0.03 H Myelocytes # (Manual) 0.04 H Blast Cells # (Man) 0.63 H RBC Morphology Unremarkable (1) AML (acute myeloblastic leukemia) Leukemia Active/Remission status: without remission Qualified Code(s): C92.00 - Acute myeloblastic leukemia, not having achieved remission
--- NOTE | 2018-10-30 19:56 | CT Scan Report ---
CT head/brain wo con CLINICAL HISTORY: 73 years-old Female presenting with fall, multiple recent falls, r/o hemorrhage. TECHNIQUE: Multidetector CT imaging of the head was performed without the use of intravenous contrast . IV contrast: None. One or more dose lowering techniques were used consistent with the principles of ALARA (as low as reasonably achievable), including automatic exposure control, mA or kV adjustment t o individual patient size, and/or use of iterative reconstruction. COMPARISON: . CT DOSE (mGy.cm): The estimated cumulative dose is 614.27 mGy.cm. FINDINGS: Anatomy And Physiology Instructor topogram: Unremarkable. Ventricles and sulci normal in size. No hemorrhage. Periventricular and subcortical white matter hypo attenuation, nonspecific but likely indicative of chronic small vessel ischemic change. No acute terr itorial infarct. No mass effect or midline shift. No extra-axial fluid collection. Paranasal sinuses and mastoid air cells clear. Calvarium intact. IMPRESSION: 1. Chronic small vessel ischemic change. No acute intracranial abnormality. Electronically signed by: Jeremie Mancuso M.D. 10/30/2018 7:55 PM
--- NOTE | 2018-10-30 20:11 | XRay Report ---
XR ribs BI min 4V w CXR1V CLINICAL HISTORY: 73 years-old Female presenting with fall with bilateral rib pain. TECHNIQUE: PA view of the chest and frontal and oblique views of the bilateral ribs were obtained. COMPARISON: Chest x-ray from 10/22/2018. FINDINGS: Right internal jugular Mediport terminates at the superior cavoatrial junction. Cardiomediastinal nikki houette normal. Lungs and pleural spaces clear. Mild degenerative changes of the spine. Upper abdomen normal. No displaced rib fracture. IMPRESSION: 1. No acute cardiopulmonary disease. 2. No radiographic evidence of a rib fracture. Electronically signed by: Jeremie Mancuso M.D. 10/30/2018 8:10 PM
[2018-10-30] MEDS: ERTAPENEM SODIUM 1,000 MG in SODIUM CHLORIDE 0.9% 50 ML IV SCH (20:27)
--- NOTE | 2018-10-30 21:08 | Infectious Disease Progress Nt ---
Date of Service October 30, 2018 Assessment & Plan (1) Diverticulitis of large intestine with abscess: 73-year-old female with AML with sigmoid diverticulitis with small abscess formation. Patient to be continued on IV ertapenem for now, consider po Augmentin as oupatient pending f/u CT. Discussed with hospitalist. Subjective Patient seen in follow-up for diverticulitis. Has somewhat more abdominal pain, otherwise without major change in symptoms. No fever. Follow-up CT scan shows no significant worsening. Review of Systems All systems reviewed & are unremarkable except as noted in HPI & below Physical Exam Vital Signs (Past 24 Hours): Last Vital Signs Temp 36.4 C L 10/30/18 20:15 Pulse 79 10/30/18 20:15 Resp 18 10/30/18 20:15 BP 151/84 H 10/30/18 20:15 Pulse Ox 100 10/30/18 20:15 Constitutional: WD/WN, vitals as above comfortable; no acute distress Eyes: PERRL, conjunctivae normal, anicteric sclerae ENMT: external ear and nose normal, oropharynx normal Neck: trachea midline, no thyromegaly neck nontender Respiratory: normal respiratory effort, lungs clear to auscultation normal percussion; no respiratory distress and does not use accessory muscles Cardiovascular: Rate/Rhythm: regular rate and regular rhythm Heart Sounds: normal S1 and normal S2; no gallop, no murmur and no cardiac rub Vessels: normal peripheral pulses; no JVD Gastrointestinal (Abdomen): normal bowel sounds, soft, nontender, no hepatosplenomegaly Inspection/Auscultation: abdomen normal to inspection and normal bowel sounds Percussion/Palpation: + abdomen tender (Minimal left lower quadrant) and abdomen soft; no hepatosplenomegaly and no abdominal mass Musculoskeletal: no cyanosis or clubbing, extremities motor strength 5/5 Spine: thoracic spine normal to inspection and lumbar spine normal to inspection; no cervical spinal tenderness Skin: no rashes, warm and dry normal turgor and + ecchymosis (Multiple); no rashes and no lesions Neurologic: moves all extremities and awake; no focal motor deficits and no meningeal signs Motor/Sensory: no sensory deficit Psychiatric: A+Ox3, euthymic affect Orientation: cooperative Lymphatic: no cervical or axillary lymphadenopathy no inguinal lymphadenopathy Results & Data Laboratory Results Short CBC 10/30/18 Range/Units 10:21 WBC 1.25 L (4.8-10.8) K/uL Hgb 10.3 L (12.0-16.0) g/dL Hct 29.4 L (37-47) % Plt Count 6 L* D (130-400) K/uL Diagnostic Findings Ordering Phy: Augustus Goyal MD cc: ~ XR ribs BI min 4V w CXR1V CLINICAL HISTORY: 73 years-old Female presenting with fall with bilateral rib pain. TECHNIQUE: PA view of the chest and frontal and oblique views of the bilateral ribs were obtained. COMPARISON: Chest x-ray from 10/22/2018. FINDINGS: Right internal jugular Mediport terminates at the superior cavoatrial junction. Cardiomediastinal silhouette normal. Lungs and pleural spaces clear. Mild degenerative changes of the spine. Upper abdomen normal. No displaced rib fracture. IMPRESSION: 1. No acute cardiopulmonary disease. 2. No radiographic evidence of a rib fracture. Electronically signed by: Jeremie Mancuso M.D. 10/30/2018 8:10 PM Dictated: 10/30/182007 Transcribed: 10/30/182007
[2018-10-30] MEDS: DOCUSATE SODIUM 100 MG CAP PO SCH (21:55)
[2018-10-31] MEDS: ACETAMINOPHEN 325 MG TAB PO PRN ×2 (03:09→23:24)
[2018-10-31] MEDS ORDERED: ACETAMINOPHEN 325 MG TAB PO SCH (06:00)
[2018-10-31] MEDS: SODIUM CHLORIDE 0.9% 1000ML 1,000 ML IV SCH ×3 (06:35→20:20)
[2018-10-31] MEDS: TRAMADOL HCL 50 MG TABLET PO PRN (06:38)
[2018-10-31 07:02] LABS: BUN Creatinine Ratio 34.1 (10-20); Calcium 8.8 mg/dl (8.5-10.1); Est GFR (African American) 118.7; Est GFR (Non-African American) 102.4; Potassium 3.8 mmol/L (3.5-5.1)
[2018-10-31 07:23] LABS: Hematocrit (blood only) 26.3 % (37-47); Mean Corpuscular Hgb Conc 34.2 g/dL (32-36); Mean Corpuscular Volume 85.1 fL (80-100); Mean Platelet Volume 9.2 fL (7.4-10.4); Platelet Count 44 K/uL (130-400); RDW Coefficient of Variation 13.9 % (11.5-14.5); RDW Standard Deviation 42.9 fL (36.4-46.3); Red Blood Count 3.09 M/uL (4.2-5.4); White Blood Count 1.58 K/uL (4.8-10.8)
[2018-10-31 07:24] LABS: ALC (manual) 0.58 K/uL (1.2-3.4); Blast # (manual) 0.89 K/uL (0-0); Blast Cells % (manual) 56.2 %; Lymphocytes # (manual) 0.58 K/uL (1.2-3.4); Lymphocytes % (manual) 36.8 %; Monocytes # (manual) 0.06 K/uL (0.11-0.59); Monocytes % (manual) 3.5 %; Neutrophils % (manual) 3.5 %; RBC Morphology Unremarkable
[2018-10-31] MEDS ORDERED: SODIUM CHLORIDE 0.9% 250 ML IV PRN (07:59)
[2018-10-31] MEDS: ACYCLOVIR 400 MG TAB PO SCH ×2 (08:30→20:18)
[2018-10-31] MEDS: ALLOPURINOL 300 MG TAB PO SCH (08:30)
[2018-10-31] MEDS: BRIMONIDINE TARTRATE-P 0.15% 5 ML BTL OPB SCH ×2 (08:30→20:18)
[2018-10-31] MEDS: MEGESTROL ACETATE 40 MG TAB PO SCH ×4 (08:30→20:17)
[2018-10-31] MEDS: VORICONAZOLE 200 MG TABLET PO SCH ×2 (08:30→20:17)
[2018-10-31] MEDS: DOCUSATE SODIUM 100 MG CAP PO SCH ×2 (08:30→20:17)
[2018-10-31] MEDS: dexAMETHasone 4 MG TAB PO SCH (08:31)
[2018-10-31] MEDS: METOPROLOL SUCC 25MG EXT REL TAB PO SCH ×2 (08:31→20:21)
[2018-10-31] MEDS: PANTOprazole 40 MG TAB PO SCH (08:31)
--- NOTE | 2018-10-31 10:54 | Infectious Disease Consult ---
Date of Consultation October 31, 2018 Assessment & Plan (1) Weakness: Had Lyme discussion with patient and his who is at bedside he has had a negative neurologic workup in certainly his symptoms could be due to TIA however with his Lyme screen being positive this does raise the concern nanette rologic Lyme disease although his symptoms resolved. He states that he has had similar symptoms in past. He has been treated with 2 courses of oral doxycycline past successfully although I do not know the definitive Lyme disease diagnosis. He does not wish to undergo PICC line and IV antibiotics this time as he feels that oral antibiotics would be sufficient as we await his Western blot. However he is agreeable if his Western blot returned positive he does have return of his neurologic symptoms he would be agreeable to IV antibiotics at time however currently in the absence symptoms and no definitive diagnosis of Lyme disease being made is his Western blot is pending he would like to proceed with oral doxycycline only. I would recommend a 28 day course of oral doxycycline. Should he have any return of his symptoms can further discuss transitioning to IV Rocephin at that time. He is agreeable with this plan. He is anxious to be discharged home and I do not see any contraindication to discharge from an infectious diseases standpoint. He can follow-up with infectious diseases as-needed upon discharge if he has return of his symptoms and desires intravenous antibiotics. This was discussed with primary service. History of Present Illness Attending Physician: Augustus Goyal MD Patient was admitted with sudden onset left facial numbness and some ataxic gait. He does have a history of CVA in 2013. He was recently hospitalized in [place] for similar symptoms that resolved. He did have extensive workup including a CTA of the head and MRI of the brain which were all negative. His symptoms have resolved. As part of his workup on Lyme screen was done and was positive. The Western blot is pending. He was started on Rocephin empirically yesterday. He has had 2 doses. He states his symptoms have resolved and he is anxious to be discharged. He is also being followed by Neurology. Denies any fevers or chills. He denies any arthralgias myalgias headaches visual changes. He denies any facial drooping. He states his numbness has resolved. His white blood cell count has been normal. He has been afebrile since admission. He does spend some time outdoors but denies any tick bites or rashes. They do have 2 cats at home. His is present during my examination. He denies any chest pain cough shortness of breath. He denies any nausea vomiting diarrhea or abdominal pain. Infectious Diseases was consulted for the possibility of neurologic Lyme disease and questionable need for intravenous antibiotics upon discharge to home. Allergies Allergy/AdvReac Type Severity Reaction Status Date / Time cefepime Allergy Intermediate RASH Verified 10/23/18 10:07 azithromycin AdvReac Intermediate Hypotension Verified 10/22/18 10:18 mivacurium AdvReac Intermediate CRASHED TO Verified 10/22/18 10:18 FLOOR Home Medications Home Medications Medication Instructions Recorded Confirmed Type Alphagan P 1 drp OPB BID 03/26/18 10/22/18 History Cresemba 372 mg PO DAILY 03/26/18 10/22/18 History acetaminophen [Tylenol] 650 mg PO Q6 PRN 03/26/18 10/22/18 History acyclovir [Zovirax] 400 mg PO BID 03/26/18 10/22/18 History allopurinol 300 mg PO DAILY 03/26/18 10/22/18 History digoxin 125 mcg PO DAILY 03/26/18 10/22/18 History levofloxacin [Levaquin] 500 mg PO DAILY 03/26/18 10/22/18 History potassium chloride [Klor-Con M20] 20 meq PO BID 03/26/18 10/22/18 History sennosides [Senokot] 8.6 mg PO DAILY PRN 03/26/18 10/22/18 History megestrol 40 mg PO QID 07/09/18 10/22/18 History metoprolol succinate 25 mg PO BID #60 tab 07/11/18 10/22/18 Rx omeprazole 40 mg PO DAILY 10/22/18 10/22/18 History Patient History Medical History Biventricular heart failure (Chronic) Neutropenia (Chronic) Anemia (Chronic) Exertional shortness of breath (Chronic) CKD (chronic kidney disease), stage III (Chronic) Dyslipidemia (Chronic) HTN (hypertension) (Chronic) History of hysterectomy (Resolved) AML (acute myeloblastic leukemia) (Chronic) Thrombocytopenia (Chronic) Lymphoma, follicular (Chronic) - s/p chemo, radiation. followed with [facility] Bloody stool (Acute) Surgical History History of removal of cyst (Resolved) removed in mouth Family History Other COPD (chronic obstructive pulmonary disease) Lymphoma Social History Communication Ability: Effective Beliefs That Will Affect Care: None Current Living Situation: Alone Current Living Situation Comment: home Other Information That Helps Us Care for You: No Feels Safe at Home: Yes Safety Concerns: Feels Safe At This Time Smoking Status: Never smoker Hx Alcohol Use: No Hx Substance Use: No Review of Systems all remaining ros reviewed and are negative Physical Exam Vital Signs (Past 24 Hours): Last Vital Signs Temp 36.4 C L 10/31/18 10:34 Pulse 48 L 10/31/18 10:34 Resp 17 10/31/18 10:34 BP 170/81 H 10/31/18 10:34 Pulse Ox 98 10/31/18 10:34 Constitutional: WD/WN, vitals as above Eyes: PERRL, conjunctivae normal, anicteric sclerae ENMT: external ear and nose normal, oropharynx normal Neck: normal visual inspection Respiratory: normal respiratory effort, lungs clear to auscultation Cardiovascular: RRR, no murmur, no edema Gastrointestinal (Abdomen): normal bowel sounds, soft, nontender, no hepatosplenomegaly Musculoskeletal: no cyanosis or clubbing, extremities motor strength 5/5 Skin: no rashes, warm and dry Neurologic: no focal motor deficits and not obtunded Motor/Sensory: normal movement Cranial Nerves: EOM intact bilaterally and normal facial strength Psychiatric: A+Ox3, euthymic affect
--- NOTE | 2018-10-31 12:02 | Palliative Care Progress Note ---
Date of Service October 31, 2018 Assessment & Plan (1) Goals of care, counseling/discussion: -73 year old female patient with AML, currently undergoing treatment and platelet transfusion M,W,F. Here with diverticulitis, severe weakness and fatigue. -Patient had a fall last night while trying to get a blanket at the foot of her bed. CT head was completed, nothing acute. -Receiving blood transfusion today. Goal hgb 10 per hospitalist. Goal platelet count 10, is 44 today. -Patient's brother Oscar at bedside. With permission, discussed goals of care with patient and her brother. -Patient states she does not want to continue with transfusions and understands the consequences of this. Patient just wants to focus on comfort for her end of life. -Plan will be for SNF ([facility]) with hospice care. Case management will set up. -Abx can be switched to PO Augmentin on discharge. -Prognosis is likely weeks. (2) Diverticulitis of large intestine with abscess: (3) Thrombocytopenia: (4) AML (acute myeloblastic leukemia): (5) Weakness: Subjective Patient remains severely weak today. Her brother Oscar is at bedside. We discussed goals of care. See A&P. patient had a fall last night. CT head was done. Review of Systems Patient c/o severe weakness, nausea, and occasional headache. Denies pain elsewhere, SOB, chest pain, or vomiting. Physical Exam Vital Signs (Past 24 Hours): Last Vital Signs Temp 36.5 C 10/31/18 11:26 Pulse 50 L 10/31/18 11:26 Resp 17 10/31/18 11:26 BP 168/82 H 10/31/18 11:26 Pulse Ox 98 10/31/18 11:26 Constitutional: + thin, + frail appearing and comfortable ENMT: external ear and nose normal, oropharynx normal Respiratory: normal respiratory effort, lungs clear to auscultation normal respiratory effort Auscultation: + diminished lung sounds Cardiovascular: RRR, no murmur, no edema Vessels: normal peripheral pulses; no JVD Gastrointestinal (Abdomen): Inspection/Auscultation: abdomen normal to inspec tion and normal bowel sounds; abdomen not distended Percussion/Palpation: abdomen soft Skin: + ecchymosis (Has generalized bruising and ecchymosis ) Neurologic: moves all extremities and awake Psychiatric: A+Ox3, euthymic affect Time Spent Midlevel 35 minutes with >50% of time spent at bedside with patient and her brother discussing GOC, and collaborating with physician and shelter case manager to discuss plan. (1) AML (acute myeloblastic leukemia) Leukemia Active/Remission status: without remission Qualified Code(s): C92.00 - Acute myeloblastic leukemia, not having achieved remission
[2018-10-31] MEDS: levoFLOXacin 500 MG TAB PO SCH (14:00)
[2018-10-31] MEDS: POTASSIUM CHLORIDE 20 MEQ TABCR PO SCH ×2 (14:01→20:16)
[2018-10-31] MEDS ORDERED: AMLODIPINE BESYLATE 5 MG TAB PO SCH (14:15)
[2018-10-31] MEDS: DIGOXIN 0.125 MG TAB PO SCH (16:16)
[2018-10-31] MEDS ORDERED: ENALAPRILAT 0.625 MG in SYRINGE 9.5 ML IV PRN (19:16)
[2018-10-31] MEDS: ERTAPENEM SODIUM 1,000 MG in SODIUM CHLORIDE 0.9% 50 ML IV SCH (19:18)
--- NOTE | 2018-10-31 23:59 | Hospitalist Progress Note ---
Date of Service October 31, 2018 delayed entry date of service as noted above Assessment & Plan (1) AML (acute myeloblastic leukemia): Pt follows with Dr Horvath oncology at [facility] patient receiving PRN blood transfusion had discussion with Oncologist in [place], not recommending treatment at this point Discussed case with patient and her family today Patient maintains her statin to discontinue further chemotherapy for AML, but would still like to continue transfusions at this point discussed this this further with her family about the care service Her main goal is to maintain comfort this point Discussed with palliative care service, they will be returning tomorrow to speak with patient and her family further regarding goals of care 10/30 Transfuse 2 units of platelets today platelets 6000 Trial of Decadron 2 mg p.o. ordered today to address generalized weakness 10/31 1 unit pRBC ordered palliative care team had a discussion with patient and family patient declines further blood transfusion she wishes to transtion to [facility], then transition to Hospice services -Continue acyclovir, Levaquin, isavuconazonium -Continue pain management (2) Diverticulitis of large intestine with abscess: Gen Surg, GI, ID consulted Continue Ertapenem IV Surgical intervention not recommended Repeat CT in 2-3 weeks Outpatient colonoscopy 8-[address] of the abdomen and pelvis showed diverticulitis without any abscess -- continue Ertapenem for now Dr. Garcia recommends Augmentin until repeat CT scan of abdomen is performed in about a week -- to transition to Hospice at [facility] (3) Fall: (4) Multiple contusions: Pt with hx fall yesterday and reported 3 falls in past month. Prior to falls reports dizziness. CT HEAD:no acute abnormality CT ABD/PELVIS: Asymmetric enlargement of the left paraspinal musculature of the mid to upper lumbar spine suggestive of a small amount of intramuscular hemorrhage. No active extravasation. Adjacent subcutaneous contusion. 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 Diverticulitis is contributing -- denies body aches (5) Pancytopenia: receives PRN transfusion (6) Non-ischemic cardiomyopathy: No acute symptoms (7) Sinus tachycardia: No CP. Current sinus rhythm rate in 80's Hx echo 02/2018: EF 40%, mild diffuse LV hypokinesis -Continue digoxin, metoprolol (8) CKD (chronic kidney disease), stage III: Cr:0.7. Stable -Monitor renal functions, avoid nephrotoxic agents when possible (9) HTN (hypertension): Stable -Continue metoprolol HEADACHE - CT head ordered to r/o hemorrhage in light of thrombocytopenia: negative - started after fall1 week ago possible concussion? migraine? Headache intermittent adequately controlled Severe protein-calorie malnutrition in setting of AML and now diverticulitis with abscess. -- boost ordered DVT Prophylaxis -SCDs in light of thrombocytopenia DNR/DNI as per discussion with pt transition to SNF then Hospice per patient's wishes discussed with patient's brother he is agreeable/comfortable with plan of care Subjective ff up for AML, diverticular abscess Seen resting in bed, patient's brother and sister in law at bedside patient seems to be drowsy but oriented received Benadryl earlier has mild headache, improved no other focal neuro symptoms denies other symptoms Physical Exam Vital Signs (Past 24 Hours): Last Vital Signs Temp 36.3 C L 10/31/18 23:20 Pulse 70 10/31/18 23:20 Resp 18 10/31/18 23:20 BP 164/71 H 10/31/18 23:20 Pulse Ox 96 10/31/18 23:20 Physical Exam: General- oriented x 2, not in distress, speaks in sentences with no effort or accessory muscle use Eyes- anicteric Neck- no JVD Lungs- clear breath sounds bilaterally Heart- normal rate, regular rhythm; no murmurs Abdomen- normal bowel sounds, nondistended, soft, nontender Extremities- no pretibial edema, no calf tenderness (+) areas of ecchymoses upper Ext Neuro- drowsy but oriented, no gross focal neurologic deficits Skin- warm & dry Results & Data Laboratory Results Laboratory Results - last 24 hr 10/30/18 10/31/18 11:05 08:23 Blood Type Cancelled A Negative Rho(D) Type Cancelled Antibody Screen Cancelled NEGATIVE Crossmatch See Detail See Detail (1) AML (acute myeloblastic leukemia) Leukemia Active/Remission status: without remission Qualified Code(s): C92.00 - Acute myeloblastic leukemia, not having achieved remission
[2018-11-01] MEDS ORDERED: Nursing to Pharmacy Communication ONE (02:40)
[2018-11-01] MEDS: ALLOPURINOL 300 MG TAB PO SCH (08:17)
[2018-11-01] MEDS: PANTOprazole 40 MG TAB PO SCH (08:17)
[2018-11-01] MEDS: dexAMETHasone 4 MG TAB PO SCH (08:17)
[2018-11-01] MEDS: POTASSIUM CHLORIDE 20 MEQ TABCR PO SCH (08:17)
[2018-11-01] MEDS: METOPROLOL SUCC 25MG EXT REL TAB PO SCH (08:17)
[2018-11-01] MEDS: DOCUSATE SODIUM 100 MG CAP PO SCH (08:17)
[2018-11-01] MEDS: ACYCLOVIR 400 MG TAB PO SCH (08:17)
[2018-11-01] MEDS: BRIMONIDINE TARTRATE-P 0.15% 5 ML BTL OPB SCH (08:17)
[2018-11-01] MEDS: VORICONAZOLE 200 MG TABLET PO SCH (08:17)
[2018-11-01] MEDS: MEGESTROL ACETATE 40 MG TAB PO SCH ×2 (08:17→12:04)
[2018-11-01] MEDS ORDERED: AMLODIPINE BESYLATE 5 MG TAB PO ONE (09:05)
--- NOTE | 2018-11-01 09:05 | Hospitalist Progress Note ---
Date of Service November 01, 2018 Assessment & Plan (1) AML (acute myeloblastic leukemia): Pt follows with Dr Horvath [place]ology [place] [facility] receiving PRN blood transfusion had discussion with Oncologist in [place], not recommending treatment at this point 10/30 Transfused additional 2 units of platelets Trial of Decadron 2 mg p.o. ordered today to address generalized weakness 10/31 1 unit pRBC ordered palliative care team had a discussion with patient and family patient declines further blood transfusion she wishes to transtion to [facility], then transition to Hospice services 11/01 comfortable overall to transition to [facility] today, then transition to hospice -Continue acyclovir, Levaquin, isavuconazonium -Continue pain management (2) Diverticulitis of large intestine with abscess: Gen Surg, GI, ID consulted Continue Ertapenem IV Surgical intervention not recommended Repeat CT in 2-3 weeks Outpatient colonoscopy 8-[address] of the abdomen and pelvis showed diverticulitis without any abscess -- given Ertapenem IV during admission Dr. Garcia recommends Augmentin until repeat CT scan of abdomen is performed in about a week -- to transition to Hospice at [facility] (3) Fall: (4) Multiple contusions: Pt with hx fall yesterday and reported 3 falls in past month. Prior to falls reports dizziness. CT HEAD:no acute abnormality CT ABD/PELVIS: Asymmetric enlargement of the left paraspinal musculature of the mid to upper lumbar spine suggestive of a small amount of intramuscular hemorrhage. No active extravasation. Adjacent subcutaneous contusion. 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 Diverticulitis is contributing -- denies body aches (5) Pancytopenia: receives PRN transfusion (6) Non-ischemic cardiomyopathy: No acute symptoms (7) Sinus tachycardia: No CP. Current sinus rhythm rate in 80's Hx echo 02/2018: EF 40%, mild diffuse LV hypokinesis -Continue digoxin, metoprolol (8) CKD (chronic kidney disease), stage III: Cr:0.7. Stable -Monitor renal functions, avoid nephrotoxic agents when possible (9) HTN (hypertension): add Amlodipine 7.5mg po daily -Continue metoprolol HEADACHE - CT head ordered to r/o hemorrhage in light of thrombocytopenia: negative - started after fall1 week ago possible concussion? migraine? Headache intermittent adequately controlled Severe protein-calorie malnutrition in setting of AML and now diverticulitis with abscess. -- boost ordered DVT Prophylaxis -SCDs in light of thrombocytopenia DNR/DNI as per discussion with pt transition to SNF then Hospice per patient's wishes discussed with patient's brother he is agreeable/comfortable with plan of care Subjective ff up for AML, diverticular abscess seen sitting up in bed, having breakfast comfortable has mild headache, no weakness/numbness denies any other pain, states she is comfortable overall states she is ready to transition to [facility] today Physical Exam Vital Signs (Past 24 Hours): Last Vital Signs Temp 36.6 C 11/01/18 08:13 Pulse 83 11/01/18 08:13 Resp 18 11/01/18 08:13 BP 160/77 H 11/01/18 08:13 Pulse Ox 98 11/01/18 08:13 Physical Exam: General- oriented x 2, not in distress, speaks in sentences with no effort or accessory muscle use Eyes- anicteric Neck- no JVD Lungs- clear breath sounds BL Heart- normal rate, regular rhythm; no murmurs Abdomen- normal bowel sounds, nondistended, soft, nontender Extremities- no pretibial edema, no calf tenderness areas of ecchymoses upper ext, back Neuro- alert, oriented x 2; no gross focal neurologic deficits Skin- warm & dry (1) AML (acute myeloblastic leukemia) Leukemia Active/Remission status: without remission Qualified Code(s): C92.00 - Acute myeloblastic leukemia, not having achieved remission
[2018-11-01] MEDS: SODIUM CHLORIDE 0.9% 1000ML 1,000 ML IV SCH (09:18)
--- NOTE | 2018-11-01 09:19 | Discharge Summary ---
Date of Service November 01, 2018 Admission HPI Per Admitting Provider Pt is 73 y/o F with PMH AML, pancytopenia, and platelet transfusion dependent, biventricular heart failure, follicular lymphoma in 2010 followed at [facility], HTN, dyslipidemia, glaucoma, CKD III,h/o PE in 08/2017 initially treated with Lovenox presented to ER from [facility] with complaint of left back pain and bruising after fall yesterday. Patient reports has had 3 falls in the past. States that she gets "woozy" and dizzy prior to fall. Yesterday was out shopping and felt fine and came home and later in the evening walking in her house and fell onto her left side. Patient complains of left shoulder ecchymosis & left back ecchymosis since fall. Patient states she uses a cane walker when she is outside. She states focal last week and had had and had outpatient CT head which was negative for bleed or fracture. Patient states since has been having headaches mostly relieved with Tylenol. Patient states 6 days ago had one episode of diarrhea and she took 2 Imodium. She did not have a BM until yesterday after taking Senokot and stools and reports BM was formed. Patient denies any abdominal pain. Denies nausea, vomiting. Denies any known fever, reports past couple days has been having hot flashes. Today patient had 1 unit PRBC and 1 unit platelets. Reports last chemo was in August 2018. Pt states is trying to get in to [facility] as she is concerned about her recurrent falls and states that she is currently on a waiting list. Hx colonoscopy in 2011 showed diverticuli. Pt denies hx diverticulitis. Denies diaphoresis, LOC, vision changes, neck pain, CP, SOB, orthopnea, palpitations, cough, sore throat, choking, otalgia, rhinorrhea, melena, hematochezia, paresthesias, extremity edema, loss ROM of extremities, rashes, urinary symptoms. Admission Exam Per Admitting Provider Vital Signs (Past 24 Hours): Last Vital Signs Temp 36.8 C 10/22/18 14:58 Pulse 75 10/22/18 19:09 Resp 18 10/22/18 19:09 BP 132/65 10/22/18 19:09 Pulse Ox 100 10/22/18 19:09 Physical Exam: General: no acute distress, thin, chronic ill appearing, non- toxic appearing Head: normocephalic, +green/yellow ecchymosis L forehead. Eyes: PERRL, EOM's intact, conjunctiva non-injected, anicteric. Left upper eyelid with ecchymosis. No orbital tenderness to palpation ENT: normal inspection external ears, nose, mucous membranes moist Neck: supple, trachea midline, non-tender, ROM intact Lungs: clear, no respiratory distress, no wheezing/rhonchi/rales CV: RRR, no pretibial edema Abd: normal BS, soft, non-tender Back: no spinous process tenderness to palpation, Left lower back with ecchymosis and tenderness to palpation Ext: no cyanosis, no calf tenderness, Left shoulder with ecchymosis, active ROM shoulder intact. +multiple ecchymosis to bilateral arms and hands, +ecchymosis to bilateral knees, +ecchymosis to bilateral legs, ROM extremities intact, distal pulses intact Neuro: A&O x 3, no focal deficits noted, normal affect Skin: warm, dry, +ecchymosis as above Principal Diagnosis DIVERTICULAR ABSCESS; ACUTE MYELOID LEUKEMIA Discharge Exam Vital Signs (Past 24 Hours): Last Vital Signs Temp 36.6 C 11/01/18 08:13 Pulse 83 11/01/18 08:13 Resp 18 11/01/18 08:13 BP 160/77 H 11/01/18 08:13 Pulse Ox 98 11/01/18 08:13 Physical Exam: General- oriented x 2, not in distress, speaks in sentences with no effort or accessory muscle use Eyes- anicteric Neck- no JVD Lungs- clear breath sounds BL Heart- normal rate, regular rhythm; no murmurs Abdomen- normal bowel sounds, nondistended, soft, nontender Extremities- no pretibial edema, no calf tenderness areas of ecchymoses upper ext, back Neuro- alert, oriented x 2; no gross focal neurologic deficits Skin- warm & dry Discharge Data Allergies Allergy/AdvReac Type Severity Reaction Status Date / Time cefepime Allergy Intermediate RASH Verified 10/23/18 10:07 azithromycin AdvReac Intermediate Hypotension Verified 10/22/18 10:18 mivacurium AdvReac Intermediate CRASHED TO Verified 10/22/18 10:18 FLOOR Consultations 10/22/18 17:49 ED Decision to Admit Stat 10/22/18 20:07 Consult Case Management - Discharge Planning Routine Consult Gastroenterology Routine Consult General Surgery Routine Consult Infectious Diseases Routine 10/29/18 08:00 Consult Palliative Care Routine Ordered Studies 10/22/18 16:03 CT abd pelvis IV con only Stat CT head/brain wo con Stat 10/23/18 15:20 CT head/brain wo con Stat 10/26/18 08:00 CT abd pelvis wo con Routine 10/30/18 18:43 CT head/brain wo con Stat Hospital Course (1) AML (acute myeloblastic leukemia): Pt follows with Dr Horvath oncology at [facility] patient receiving PRN blood transfusion 2-3X a week as outpatient, has been falling multiple times and becoming progressively weak patient felt to be not responding to chemotherapy had discussion with Oncologist in [place], not recommending treatment at this point she was given pRBC and platelet transfusions while admitted to maintain Hg > 10 and Plt > 10k palliative care team had a lengthy discussion with patient and family patient declines further chemotherapy and blood transfusion at this point main goal is for comfort she wishes to transtion to [facility], then transition to Hospice services Trial of Decadron 2 mg p.o. ordered to address generalized weakness- please monitor and titrate -Continue acyclovir, Levaquin, isavuconazonium for prophylaxis given neutropenia -Continue pain management (2) Diverticulitis of large intestine with abscess: Gen Surg, GI, ID consulted Surgical intervention not recommended Repeat CT in 2-3 weeks Outpatient colonoscopy 8-[address] of the abdomen and pelvis showed diverticulitis without any abscess -- given Ertapenem IV during admission Dr. Garcia recommends Augmentin until repeat CT scan of abdomen is performed in about a week- allergic to Cefepime, will give Flagyl 500mg TID x 7 days -- to transition to Hospice at [facility] (3) Fall: (4) Multiple contusions: Pt with hx fall yesterday and reported 3 falls in past month. Prior to falls reports dizziness. CT HEAD:no acute abnormality CT ABD/PELVIS: Asymmetric enlargement of the left paraspinal musculature of the mid to upper lumbar spine suggestive of a small amount of intramuscular hemorrhage. No active extravasation. Adjacent subcutaneous contusion. 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 Diverticulitis is contributing -- denies body aches PRN pain medications (5) Pancytopenia: received PRN transfusion (6) Non-ischemic cardiomyopathy: No acute symptoms (7) Sinus tachycardia: No CP. Current sinus rhythm rate in 80's Hx echo 02/2018: EF 40%, mild diffuse LV hypokinesis -Continue digoxin, metoprolol (8) CKD (chronic kidney disease), stage III: Cr:0.7. Stable -Monitor renal functions, avoid nephrotoxic agents when possible (9) HTN (hypertension): add Amlodipine 7.5mg po daily for better control -Continue metoprolol monitor HEADACHE - CT head ordered to r/o hemorrhage in light of thrombocytopenia: negative - started after fall1 week ago possible concussion? migraine? Headache intermittent adequately controlled continue PRN pain meds Severe protein-calorie malnutrition in setting of AML and now diverticulitis with abscess. -- boost ordered DVT Prophylaxis -SCDs in light of thrombocytopenia DNR/DNI as per discussion with pt transition to SNF then Hospice per patient's wishes discussed with patient's brother he is agreeable/comfortable with plan of care Total Time Total Time Spent Total Time Spent (In Minutes): 45 minutes Discharge Plan Discharge Items Patient Disposition: Transfer [facility] Reason For Visit: DIVERTICULITITS Discharge Diagnosis: DIVERTICULAR ABSCESS; ACUTE MYELOID LEUKEMIA Discharge Goals: Diagnostic testing and Therapeutic intervention Activity: As commented below Activity Comment: COMPLETE BEDREST; HIGH FALL RISK; MAXIMAL ASSIST WITH TRANSFERS Non-emergency contact: Primary Care Provider Call non-emergency contact if: you have any medication questions, your symptoms worsen, your pain is not controlled, your pain is worsening, your pain is unusual for you, your pain is concerning for you and you have a fever Follow-up/Referrals: Marco Pineda MD [Primary Care Provider] - Diet: Regular Diet Comment: SOFT BITE SIZED Addtl Provider Instructions: PATIENT REQUESTS TO TRANSITION TO HOSPICE SERVICES UPON ADMISSION TO [facility]. PLEASE REFER TO HOSPITAL DISCHARGE SUMMARY FOR FURTHER DETAILS. Prescriptions: New tramadol 50 mg Tablet 50 mg PO Q6H PRN (Reason: pain) 7 Days Qty: 10 RF: 0 dexamethasone 4 mg Tablet 2 mg PO DAILY 15 Days Qty: 7.5 RF: 0 docusate sodium 100 mg Capsule 100 mg PO BID 15 Days Qty: 30 RF: 0 amlodipine 5 mg tablet 7.5 mg PO DAILY 15 Days Qty: 22.5 RF: 2 metronidazole [Flagyl] 500 mg tablet 500 mg PO TID Qty: 21 RF: 0 Continued allopurinol 300 mg Tablet 300 mg PO DAILY RF: 0 sennosides [Senokot] 8.6 mg Tablet 8.6 mg PO DAILY PRN (Reason: Constipation) RF: 0 acetaminophen [Tylenol] 325 mg Tablet 650 mg PO Q6 PRN (Reason: Pain) RF: 0 acyclovir [Zovirax] 400 mg Tablet 400 mg PO BID RF: 0 potassium chloride [Klor-Con M20] 20 mEq Tablet,Er Particles/Crystals 20 meq PO BID RF: 0 digoxin 125 mcg Tablet 125 mcg PO DAILY RF: 0 levofloxacin [Levaquin] 500 mg Tablet 500 mg PO DAILY RF: 0 Alphagan P 0.1 % Drops 1 drp OPB BID RF: 0 Cresemba 186 mg Capsule 372 mg PO DAILY RF: 0 megestrol 20 mg Tablet 40 mg PO QID RF: 0 metoprolol succinate 25 mg Tablet Extended Release 24 Hr 25 mg PO BID Qty: 60 RF: 1 omeprazole 40 mg Capsule,Delayed Release(Dr/Ec) 40 mg PO DAILY RF: 0 Stand-Alone Forms: [facility] Discharge Orders: Discharge Order (Routine); Ordered 11/01/18 Ordered By: Augustus Goyal Skilled Items Patient informed of condition?: Yes DNR: Yes Discharge Level of Care: Skilled Communicable Disease: No Discharge Prognosis: Other Admission Data Admit Date/Time: 10/22/18 18:43 Attending Provider: Augustus Goyal Admit Provider: Augustus Goyal Primary Care Provider: Marco Pineda Other Providers: Jason Garcia ; Donn Martinez ; Abril Cai ; Augustus Goyal ; Mariella Avelar ; Kartik Banks Service: Telemetry Medical
[2018-11-01 09:36] LABS: Hematocrit (blood only) 29.8 % (37-47); Hemoglobin 10.6 g/dL (12.0-16.0); Mean Corpuscular Hgb Conc 35.6 g/dL (32-36); Mean Corpuscular Volume 82.3 fL (80-100); RDW Coefficient of Variation 14.6 % (11.5-14.5); RDW Standard Deviation 44.4 fL (36.4-46.3); Red Blood Count 3.62 M/uL (4.2-5.4); White Blood Count 1.42 K/uL (4.8-10.8)
[2018-11-01 10:08] LABS: Platelet Estimate SIGNIFIC DECREASED (Normal); RBC Morphology Unremarkable
[2018-11-01 10:23] LABS: ALC (manual) 0.66 K/uL (1.2-3.4); Blast # (manual) 0.65 K/uL (0-0); Blast Cells % (manual) 45.6 %; Lymphocytes # (manual) 0.66 K/uL (1.2-3.4); Lymphocytes % (manual) 46.5 %; Myelocytes # (manual) 0.03 K/uL (0-0); Myelocytes % (manual) 1.8 %; Neutrophils % (manual) 6.1 %
[2018-11-01 10:31] LABS: Mean Platelet Volume 8.3 fL (7.4-10.4); Platelet Count 19 K/uL (130-400)
[2018-11-01] MEDS: levoFLOXacin 500 MG TAB PO SCH (10:50)
== END 2018-11-01 17:00 | DRG 391 ==
LOC: ED 14:52 → 2N 18:43 → SUATTDRO 18:43 → 2N 19:09